=== PATIENT | female | born 1945 | race Caucasian/White ===

== ENCOUNTER 2021-05-26 18:45 | Inpatient (IN) ==
[2021-05-26] MEDS ORDERED: ceFAZolin 1 GM VIAL IV ONE (19:01)
[2021-05-26] MEDS ORDERED: ONDANSETRON 4 MG/2 ML VIAL IV PRN ×2 (19:06→22:45)
[2021-05-26] MEDS: HYDROmorphone 0.5 MG/0.5 ML SYRINGE IV PRN ×2 (19:24→20:20)
[2021-05-26 19:59] LABS: Basophils # (Auto) 0.04 K/mcL (0.00-0.20); Eosinophils # (Auto) 0.03 K/mcL (0.00-0.70); Eosinophils % (Auto) 0.8 % (0.0-7.0); Hematocrit 30.3 % (36.0-48.0); Hemoglobin 9.4 g/dL (12.0-15.0); Lymphocytes # (Auto) 0.61 K/mcL (1.50-4.80); Lymphocytes % (Auto) 15.8 % (15.0-49.0); Mean Platelet Volume 10.6 fL (7.4-10.4); Monocytes # (Auto) 0.33 K/mcL (0.10-0.90); Monocytes % (Auto) 8.5 % (1.0-12.0); Neutrophils % (Auto) 73.9 % (38.0-78.0); Platelet Count 134 K/mcL (140-440); Red Cell Distribution Width 14.1 % (11.5-14.5); WBC 3.9 K/mcL (4.5-11.0)
[2021-05-26] MEDS ORDERED: DIPH,PERTUSS(ACELL),TET VAC/PF 0.5 ML SYRINGE IM ONE (20:02)
--- NOTE | 2021-05-26 20:02 | Emergency Department Note ---
Lower Extremity Injury HPI General Chief Complaint: Extremity Injury, Lower Stated Complaint: femur FX Time Seen by Provider: 05/26/21 19:01 Source: patient Mode of arrival: ambulatory Limitations: no limitations History of Present Illness HPI Narrative: Narrative: Patient is a 75-year-old female with history of osteopenia and previous left humerus fracture who presents by EMS after fall while gardening. She suffered obvious right femur fracture. There was no bone protruding but there is a skin break at the level of the fracture anterior lateral on the right thigh that was concerning for open wound. Patient was with good distal neurovascular. She denied any other injury. Did not hit her head. Had no neck chest back or abdominal injury. No upper extremity pain. She was given fentanyl in route for pain control with good effect. She had initially noted severe pain again route improved with IV narcotics. She did not have any dizziness lightheadedness or other precipitating symptoms to cause the fall noting that merely she stumbled in the uneven ground. Related Data Home Medications Medication Instructions Recorded Confirmed cyanocobalamin (vitamin B-12) 1,000 mcg IM QMONTH 02/20/20 05/26/21 1,000 mcg/mL injection solution folic acid 1 mg tablet 3 mg PO QDAY tab 02/20/20 05/26/21 hydroxychloroquine 200 mg tablet 400 mg PO QDAY 02/20/20 05/26/21 methotrexate sodium 2.5 mg tablet 20 mg PO QWEEK tab 02/20/20 05/26/21 mycophenolate mofetil 500 mg tablet 1,500 mg PO QDAY tab 02/20/20 05/26/21 prednisone 5 mg tablet 5 mg PO QDAY tab 05/21/20 05/26/21 Previous Rx's Medication Instructions Recorded fluvoxamine 50 mg tablet 50 mg PO QHS #90 tab 08/04/20 bupropion HCl 150 mg tablet,12 hr 150 mg PO BID PRN #60 each 02/14/21 sustained-release diclofenac sodium 1 % topical gel 2 g TOPICAL QID PRN #100 g 04/14/21 ferrous gluconate 225 mg (27 mg 225 mg PO QDAY #30 tab 04/14/21 iron) tablet trazodone 50 mg tablet See Rx Instructions .ROUTE 04/14/21 .COMPLEX #180 tab gabapentin 400 mg capsule See Rx Instructions .ROUTE 04/21/21 .COMPLEX #540 cap hydrocodone 10 mg-acetaminophen 1 tab PO Q4H PRN #90 tab 05/25/21 325 mg tablet Allergies Allergy/AdvReac Type Severity Reaction Status Date / Time acetaminophen [From Percocet] Allergy Severe Unknown Verified 05/26/21 20:22 codeine Allergy Severe Unknown Verified 05/26/21 20:22 doxycycline Allergy Severe unknown Verified 05/26/21 20:22 meperidine [From Demerol] Allergy Severe unknown Verified 05/26/21 20:22 morphine Allergy Severe unknown Verified 05/26/21 20:22 oxycodone [From Percocet] Allergy Severe unknown Verified 05/26/21 20:22 Penicillins Allergy Severe unknown Verified 05/26/21 20:22 Sulfa (Sulfonamide Allergy Severe unknown Verified 05/26/21 20:22 Antibiotics) Review of Systems ROS ROS Narrative: Narrative: A 10 system review of systems was performed and found to be negative except as outlined above. 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) Anemia (Chronic) Degenerative arthritis of thumb (Acute) Lupus (Chronic) Viral syndrome (Acute) Sinusitis (Acute) Cough (Acute) UTI (urinary tract infection) (Acute) Bronchitis (Acute) Hx of bone density study (Chronic 10/23/14) Hx of cervical cancer (Chronic) Osteoarthritis, hand (Chronic) Dorsal (thoracic) vertebral fracture (Chronic) Muscle pain (Chronic) Joint pain (Chronic) Disequilibrium (Chronic) Leg pain, left (Chronic) Allergic rhinitis (Chronic) 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) Fatigue (Chronic) Tendinitis, calcific, shoulder (Chronic) Dysphagia, unspecified (Chronic) GERD (gastroesophageal reflux disease) (Chronic) Impingement syndrome of right shoulder (Chronic) Peripheral neuropathy (Chronic) Malignant neoplasm of cervix uteri (Chronic) Bullous systemic lupus erythematosus (SLE) (Chronic) Mid-cervical disc disorder, unspecified level (Chronic) Displaced fracture of greater tuberosity of left humerus, subsequent encounter for fracture with routine healing (Chronic) Inflammatory polyarthropathy (Chronic) Encounter for therapeutic drug level monitoring (Chronic) History of cataract surgery (Chronic ~10/2015) History of foot surgery (Chronic ~01/2016) Tooth abscess (Chronic) Medicare annual wellness visit, subsequent (Chronic) Plantar fasciitis (Chronic) Hip pain (Chronic) Vitamin D deficiency (Chronic) Ataxia (Chronic) Hemorrhoids (Chronic) Arthritis (Chronic) UTI (urinary tract infection) (Chronic) Vaginal dysplasia (Chronic) Migraine with aura (Chronic) Sexual dysfunction (Chronic) Palpitation (Chronic) Constipation (Chronic) Collapsed vertebra (Chronic) OA (osteoarthritis) of knee (Chronic) Age related osteoporosis (Chronic) Disorder of visual cortex associated with vascular disorder (Chronic) Fibromyalgia (Chronic) MRSA (methicillin resistant Staphylococcus aureus) (Chronic) Displaced fracture (Chronic) Polyarthropathy (Chronic) Anxiety associated with depression (Chronic) Foot drop, left foot (Chronic) DDD (degenerative disc disease), lumbosacral (Chronic) Weight loss (Chronic) PVD (peripheral vascular disease) (Chronic) 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 Displaced fracture of greater tuberosity of left humerus, subsequent encounter for fracture with routine healing Displacement of lumbar intervertebral disc with myelopathy Disseminated lupus erythematosus Dorsal (thoracic) vertebral fracture lower Dysphagia, unspecified Encounter for therapeutic drug level monitoring Fatigue Fibromyalgia Foot drop, left foot GERD (gastroesophageal reflux disease) Hemorrhoids Hip pain Hx of bone density study (10/23/14) Osteoporosis Hx of cervical cancer LGSIL Impingement syndrome of right shoulder Inflammatory polyarthropathy Joint pain Leg pain, left Leukoplakia oral mucosa Lupus Malignant neoplasm of cervix uteri Medicare annual wellness visit, subsequent Mid-cervical disc disorder, unspecified level Migraine with aura MRSA (methicillin resistant Staphylococcus aureus) Muscle pain OA (osteoarthritis) of knee Obsessive compulsive personality disorder Osteoarthritis, hand Palpitation Parkinsonian tremor Peripheral neuropathy Pernicious anemia Plantar fasciitis Polyarthropathy PVD (peripheral vascular disease) Sexual dysfunction Sinusitis Sinusitis Sjogrens syndrome Tendinitis, calcific, shoulder left Tooth abscess UTI (urinary tract infection) Vaginal dysplasia Viral syndrome Vitamin D deficiency Weight loss Surgical History History of cataract surgery (~10/2015) Dr Adame History of foot surgery (~01/2016) History of hysterectomy Left only left ovary Family History Father Cancer Sister Breast cancer Brother , Age 48 Cancer Social History Smoking Status: Former smoker Alcohol Intake Frequency: does not drink Substance Use: does not use Exam Narrative Narrative: Narrative: General: Alert, Nontoxic, GCS 15. Speaking full sentences without dyspnea HEENT: NCAT, PERRL, Oral pharynx with moist mucus membranes. No pharyngeal erythema. No conjunctival pallor Neck: Supple, No lymphadenopathy Chest: Stable Heart: Regular rate and rhythm without murmur Lungs: Clear to auscultation bilaterally Abdomen: Soft, nondistended, nontender : No bladder distention Back: Nontraumatic, No CVA tenderness to palpation. Skin: There is a 2 cm wound proximal to the right knee anterior lateral aspect. No active bleeding. There is no surrounding abrasion or bruising to indicate that this was an external type force. Extremity: Right lower extremity Joe traction splint in place with noted swelling and mild deformity just proximal to the right knee. Evidence of prior total knee arthroplasty. Neurologic: Moves all extremities in appropriate coordinated fashion with the obvious exception of the right hip and knee. Normal movement at the right foot and ankle.. General Limitations: no limitations Course Vital Signs Vital signs: Vital Signs Temperature 98.6 F 05/26/21 18:46 Pulse Rate 81 05/26/21 18:46 Respiratory Rate 16 05/26/21 18:46 Blood Pressure 112/46 05/26/21 18:46 Pulse Oximetry (%) 89 L 05/26/21 18:46 Temperature 98.6 F 05/26/21 18:46 Pulse Rate 78 05/26/21 21:06 Respiratory Rate 16 05/26/21 21:06 Blood Pressure 140/87 05/26/21 21:06 Pulse Oximetry (%) 97 05/26/21 21:06 MDM MDM Narrative Medical decision making narrative: Narrative: Patient is a elderly female with history of arthritis and osteopenia who has suffered open right distal femur fracture. This involves the metaphysis and although I spoke with Dr. Minor the orthopedist not feeling that it obviously went into the prosthesis, on better viewing on the monitor with the AP view there does appear to be extension of the fracture line all the way down to the knee prosthesis. Patient was given Ancef 2 g shortly after arrival. She cannot recall her tetanus and was given tetanus booster. She is given Dilaudid for pain control. She is given IV fluid hydration and will be admitted for further procedural care. Lab Data Result diagrams: 05/26/21 19:20 05/26/21 19:20 Labs: Lab Results 05/26/21 05/26/21 05/26/21 Range/Units 19:20 19:20 19:20 WBC 3.9 L (4.5-11.0) K/mcL RBC 3.00 L (4.00-5.20) M/mcL Hgb 9.4 L (12.0-15.0) g/dL Hct 30.3 L (36.0-48.0) % MCV 101.0 H (80.0-100.0) fL MCH 31.3 (26.0-34.0) pg MCHC 31.0 (31.0-36.0) g/dL RDW 14.1 (11.5-14.5) % Plt Count 134 L (140-440) K/mcL MPV 10.6 H (7.4-10.4) fL Neut % (Auto) 73.9 (38.0-78.0) % Lymph % (Auto) 15.8 (15.0-49.0) % [place] % (Auto) 8.5 (1.0-12.0) % Eos % (Auto) 0.8 (0.0-7.0) % Baso % (Auto) 1.0 (0.0-2.0) % Lymph # (Auto) 0.61 L (1.50-4.80) K/mcL [place] # (Auto) 0.33 (0.10-0.90) K/mcL Eos # (Auto) 0.03 (0.00-0.70) K/mcL Baso # (Auto) 0.04 (0.00-0.20) K/mcL Absolute Neutrophils 2.86 (1.80-8.00) K/mcL PT 14.5 (11.9-14.5) sec INR 1.1 (0.9-1.1) Sodium 133 (133-145) mmol/L Potassium 4.1 (3.3-5.1) mmol/L Chloride 99 (96-108) mmol/L Carbon Dioxide 30 (22-30) mmol/L Anion Gap 4.0 L (8.0-16.0) BUN 15 (8-23) mg/dL Creatinine 0.9 (0.6-1.1) mg/dL GFR Calculation 63 Glucose 90 (70-105) mg/dL Calcium 7.8 L (8.6-10.4) mg/dL Total Bilirubin 0.4 (0.1-1.0) mg/dL AST 22 (<32) U/L ALT 9 (<40) U/L Alkaline Phosphatase 46 (39-117) U/L Total Protein 5.2 L (5.9-8.4) gm/dL Albumin 3.7 (3.2-5.2) gm/dL Globulin 1.5 L (2.2-3.7) gm/dL Albumin/Globulin Ratio 2.5 H (1.0-2.3) ED POC Tests ED POC Tests: VIDA - SARS Antigen Negative Discharge Plan Patient/Caregiver Discharge Instructions Pt seen by [employer]INEER/PA only: No Clinical Impression: Open left femoral fracture Patient Disposition: Xfer As Inpt ([facility]) Condition: Serious Follow up with: Edgar Ibarra MD [Primary Care Provider] - Prescriptions: No Action fluvoxamine 50 mg tablet 50 mg tablet 50 mg PO QHS Qty: 90 RF: 3 bupropion HCl [Wellbutrin SR] 150 mg tablet sustained-release 12 hr 150 mg PO BID PRN (Reason: Depression) Qty: 60 RF: 12 trazodone 50 mg tablet See Rx Instructions .ROUTE .COMPLEX Qty: 180 RF: 0 gabapentin 400 mg capsule See Rx Instructions .ROUTE .COMPLEX Qty: 540 RF: 1 methotrexate sodium 2.5 mg tablet 20 mg PO QWEEK RF: 0 mycophenolate mofetil [CellCept] 500 mg tablet 1,500 mg PO QDAY RF: 0 folic acid 1 mg tablet 3 mg PO QDAY RF: 0 hydroxychloroquine [Plaquenil] 200 mg tablet 400 mg PO QDAY RF: 0 cyanocobalamin (vitamin B-12) 1,000 mcg/mL solution 1,000 mcg IM QMONTH RF: 0 prednisone 5 mg tablet 5 mg PO QDAY RF: 0 ferrous gluconate 225 mg (27 mg iron) tablet 225 mg PO QDAY Qty: 30 RF: 6 diclofenac sodium 1 % gel 2 g TOPICAL QID PRN (Reason: pain) Qty: 100 RF: 6 hydrocodone-acetaminophen 10-325 mg tablet 1 tab PO Q4H PRN (Reason: pain) Qty: 90 RF: 0
[2021-05-26 20:11] LABS: ALT/SGPT 9 U/L (<40); AST/SGOT 22 U/L (<32); Albumin 3.7 gm/dL (3.2-5.2); Albumin/Globulin Ratio 2.5 (1.0-2.3); Alkaline Phosphatase 46 U/L (39-117); Bilirubin,Total 0.4 mg/dL (0.1-1.0); Blood Urea Nitrogen 15 mg/dL (8-23); Calcium 7.8 mg/dL (8.6-10.4); Carbon Dioxide 30 mmol/L (22-30); Chloride 99 mmol/L (96-108); Globulin 1.5 gm/dL (2.2-3.7); Glomerular Filtration Rate 63; Glucose 90 mg/dL (70-105)
[2021-05-26 20:17] LABS: INR 1.1 (0.9-1.1); Prothrombin Time 14.5 sec (11.9-14.5)
[2021-05-26] MEDS ORDERED: 0.9 % SODIUM CHLORIDE 250 ML IV SCH (20:45)
[2021-05-26] MEDS ORDERED: ALBUMIN HUMAN 25 GM/100 ML BAG IV ONE ×2 (20:55→21:01)
[2021-05-26] MEDS ORDERED: VANCOMYCIN 1,000 MG in 0.9 % SODIUM CHLORIDE 250 ML IV ONE (21:10)
[2021-05-26] MEDS ORDERED: ceFAZolin 2 GM in DEXTROSE 5% IN WATER 50 ML IV SCH (21:15)
[2021-05-26] MEDS ORDERED: ALBUMIN HUMAN 12.5 GM/50 ML BAG IV ONE (21:30)
[2021-05-26] MEDS ORDERED: PHENYLEPHRINE 10 MG/ML VIAL ONE (21:30)
[2021-05-26] MEDS ORDERED: ONDANSETRON 4 MG/2 ML VIAL ONE (21:30)
[2021-05-26] MEDS ORDERED: SUCCINYLCHOLINE 20 MG/ML ML IV ONE (21:30)
[2021-05-26] MEDS ORDERED: ePHEDrine 50 MG/5 ML SYRINGE (ANEST) IV ONE (21:30)
[2021-05-26] MEDS ORDERED: KETAMINE 50 MG/ML ML ONE (21:30)
[2021-05-26] MEDS ORDERED: methylPREDNISolone SOD SUCC 125 MG/2 ML VIAL ONE (21:30)
[2021-05-26] MEDS ORDERED: LIDOCAINE HCL/PF 100 MG/5 ML SYRINGE IV ONE (21:30)
[2021-05-26] MEDS ORDERED: PROPOFOL 200 MG/20 ML VIAL IV ONE (21:30)
--- NOTE | 2021-05-26 21:32 | Internal Med History&Physical ---
HPI History of Present Illness Patient information: Note initiated : 05/26/21 at 9:32 pm Service Date, if different from initiated Date: [] Patient: Kathi Arevalo 75 y/o F admitted on for Femur FX. Chief Complaint: [] History of present illness: Ms. Arevalo is a 75 year old female with a history of Lupus on immunosuppressant medications, depression, pernicious anemia, osteoarthritis s/p prior right knee arthroplasty, insomnia who suffered a right distal femur fracture when she fell while gardening. Orthopedic surgery plans to take the patient to the OR. Internal medicine was asked to be involved in the patient's care for medical management. Review of systems Constitutional: no fever, fatigue, or weight loss Eyes: no vision changes or pain Cardiovascular: no chest pain, no palpitations Respiratory: no cough or dyspnea Gastrointestinal: no abdominal pain, no nausea, vomiting, or diarrhea Genitourinary: no dysuria or difficulty voiding Musculoskeletal: right leg pain Integumentary: no skin lesion or wound Neurological: no focal weakness or numbness Psychiatric: no anxiety or depression Physical exam Head: Atraumatic, normal inspection. Eyes: normal appearance, no scleral icterus. Neck: full ROM Respiratory: no respiratory distress. Cardiovascular: normal rate and rhythm, S1, S2. GI/Abdominal: soft, nontender, no guarding. Extremities: right leg in external fixator Neurological: CN II-XII intact, intact motor, intact sensation. Psychiatric: normal mood. 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) Anemia (Chronic) Degenerative arthritis of thumb (Acute) Lupus (Chronic) Viral syndrome (Acute) Sinusitis (Acute) Cough (Acute) UTI (urinary tract infection) (Acute) Bronchitis (Acute) Hx of bone density study (Chronic 10/23/14) Hx of cervical cancer (Chronic) Osteoarthritis, hand (Chronic) Dorsal (thoracic) vertebral fracture (Chronic) Muscle pain (Chronic) Joint pain (Chronic) Disequilibrium (Chronic) Leg pain, left (Chronic) Allergic rhinitis (Chronic) 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) Fatigue (Chronic) Tendinitis, calcific, shoulder (Chronic) Dysphagia, unspecified (Chronic) GERD (gastroesophageal reflux disease) (Chronic) Impingement syndrome of right shoulder (Chronic) Peripheral neuropathy (Chronic) Malignant neoplasm of cervix uteri (Chronic) Bullous systemic lupus erythematosus (SLE) (Chronic) Mid-cervical disc disorder, unspecified level (Chronic) Displaced fracture of greater tuberosity of left humerus, subsequent encounter for fracture with routine healing (Chronic) Inflammatory polyarthropathy (Chronic) Encounter for therapeutic drug level monitoring (Chronic) History of cataract surgery (Chronic ~10/2015) History of foot surgery (Chronic ~01/2016) Tooth abscess (Chronic) Medicare annual wellness visit, subsequent (Chronic) Plantar fasciitis (Chronic) Hip pain (Chronic) Vitamin D deficiency (Chronic) Ataxia (Chronic) Hemorrhoids (Chronic) Arthritis (Chronic) UTI (urinary tract infection) (Chronic) Vaginal dysplasia (Chronic) Migraine with aura (Chronic) Sexual dysfunction (Chronic) Palpitation (Chronic) Constipation (Chronic) Collapsed vertebra (Chronic) OA (osteoarthritis) of knee (Chronic) Age related osteoporosis (Chronic) Disorder of visual cortex associated with vascular disorder (Chronic) Fibromyalgia (Chronic) MRSA (methicillin resistant Staphylococcus aureus) (Chronic) Displaced fracture (Chronic) Polyarthropathy (Chronic) Anxiety associated with depression (Chronic) Foot drop, left foot (Chronic) DDD (degenerative disc disease), lumbosacral (Chronic) Weight loss (Chronic) PVD (peripheral vascular disease) (Chronic) 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 Displaced fracture of greater tuberosity of left humerus, subsequent encounter for fracture with routine healing Displacement of lumbar intervertebral disc with myelopathy Disseminated lupus erythematosus Dorsal (thoracic) vertebral fracture lower Dysphagia, unspecified Encounter for therapeutic drug level monitoring Fatigue Fibromyalgia Foot drop, left foot GERD (gastroesophageal reflux disease) Hemorrhoids Hip pain Hx of bone density study (10/23/14) Osteoporosis Hx of cervical cancer LGSIL Impingement syndrome of right shoulder Inflammatory polyarthropathy Joint pain Leg pain, left Leukoplakia oral mucosa Lupus Malignant neoplasm of cervix uteri Medicare annual wellness visit, subsequent Mid-cervical disc disorder, unspecified level Migraine with aura MRSA (methicillin resistant Staphylococcus aureus) Muscle pain OA (osteoarthritis) of knee Obsessive compulsive personality disorder Osteoarthritis, hand Palpitation Parkinsonian tremor Peripheral neuropathy Pernicious anemia Plantar fasciitis Polyarthropathy PVD (peripheral vascular disease) Sexual dysfunction Sinusitis Sinusitis Sjogrens syndrome Tendinitis, calcific, shoulder left Tooth abscess UTI (urinary tract infection) Vaginal dysplasia Viral syndrome Vitamin D deficiency Weight loss Surgical History History of cataract surgery (~10/2015) Dr Adame History of foot surgery (~01/2016) History of hysterectomy Left only left ovary Family History Father Cancer Sister Breast cancer Brother , Age 48 Cancer Social History marital status: single occupational status: retired occupation: Housekeeping @[employer] alcohol intake frequency: does not drink substance use type: does not use MEDS/ALLERGIES Home Medications and Allergies Home Medications Medication Instructions Recorded Confirmed Type cyanocobalamin (vitamin B-12) 1,000 mcg IM QMONTH 02/20/20 05/27/21 History 1,000 mcg/mL injection solution folic acid 1 mg tablet 3 mg PO QDAY tab 02/20/20 05/27/21 History hydroxychloroquine 200 mg tablet 400 mg PO QDAY 02/20/20 05/27/21 History methotrexate sodium 2.5 mg tablet 20 mg PO QWEEK tab 02/20/20 05/27/21 History mycophenolate mofetil 500 mg tablet 1,000 mg PO QDAY tab 02/20/20 05/27/21 History prednisone 5 mg tablet 5 mg PO QDAY tab 05/21/20 05/27/21 History fluvoxamine 50 mg tablet 50 mg PO QHS #90 tab 08/04/20 05/27/21 Rx bupropion HCl 150 mg tablet,12 hr 150 mg PO BID PRN #60 each 02/14/21 05/27/21 Rx sustained-release diclofenac sodium 1 % topical gel 2 g TOPICAL QID PRN #100 g 04/14/21 05/27/21 Rx ferrous gluconate 225 mg (27 mg 225 mg PO QDAY #30 tab 04/14/21 05/27/21 Rx iron) tablet gabapentin 400 mg capsule See Rx Instructions .ROUTE 04/21/21 05/27/21 Rx .COMPLEX #540 cap hydrocodone 10 mg-acetaminophen 1 tab PO Q4H PRN #90 tab 05/25/21 05/27/21 Rx 325 mg tablet mycophenolate mofetil 500 mg PO 1900 05/27/21 05/27/21 History trazodone 50 - 100 mg PO HSP PRN 05/27/21 05/27/21 History Allergies Allergy/AdvReac Type Severity Reaction Status Date / Time acetaminophen [From Percocet] Allergy Severe Unknown Verified 05/26/21 20:22 codeine Allergy Severe Difficulty Verified 05/27/21 03:16 Breathing doxycycline Allergy Severe Difficulty Verified 05/27/21 03:16 Breathing meperidine [From Demerol] Allergy Severe Difficulty Verified 05/27/21 03:16 Breathing morphine Allergy Severe Difficulty Verified 05/27/21 03:16 Swallowing oxycodone [From Percocet] Allergy Severe Difficulty Verified 05/27/21 03:16 Breathing Penicillins Allergy Severe Difficulty Verified 05/27/21 03:16 Breathing Sulfa (Sulfonamide Allergy Severe Difficulty Verified 05/27/21 03:16 Antibiotics) Breathing EXAM Constitutional Vitals: Temp Pulse Resp BP Pulse Ox 98.6 F 78 16 140/87 97 05/26/21 18:46 05/26/21 21:06 05/26/21 21:06 05/26/21 21:06 05/26/21 21:06 DATA Data Completed and Pending Labs: Labs from last 24 hours 05/26/21 05/26/21 05/26/21 20:33 20:33 19:20 WBC RBC Hgb Hct MCV MCH MCHC RDW Plt Count MPV Neut % (Auto) Lymph % (Auto) [place] % (Auto) Eos % (Auto) Baso % (Auto) Lymph # (Auto) [place] # (Auto) Eos # (Auto) Baso # (Auto) Absolute Neutrophils PT INR Sodium 133 Potassium 4.1 Chloride 99 Carbon Dioxide 30 Anion Gap 4.0 L BUN 15 Creatinine 0.9 GFR Calculation 63 Glucose 90 Calcium 7.8 L Total Bilirubin 0.4 AST 22 ALT 9 Alkaline Phosphatase 46 Troponin T Pending NT-Pro-B Natriuret Pep Pending Total Protein 5.2 L Albumin 3.7 Globulin 1.5 L Albumin/Globulin Ratio 2.5 H 05/26/21 05/26/21 19:20 19:20 WBC 3.9 L RBC 3.00 L Hgb 9.4 L Hct 30.3 L MCV 101.0 H MCH 31.3 MCHC 31.0 RDW 14.1 Plt Count 134 L MPV 10.6 H Neut % (Auto) 73.9 Lymph % (Auto) 15.8 [place] % (Auto) 8.5 Eos % (Auto) 0.8 Baso % (Auto) 1.0 Lymph # (Auto) 0.61 L [place] # (Auto) 0.33 Eos # (Auto) 0.03 Baso # (Auto) 0.04 Absolute Neutrophils 2.86 PT 14.5 INR 1.1 Sodium Potassium Chloride Carbon Dioxide Anion Gap BUN Creatinine GFR Calculation Glucose Calcium Total Bilirubin AST ALT Alkaline Phosphatase Troponin T NT-Pro-B Natriuret Pep Total Protein Albumin Globulin Albumin/Globulin Ratio A/P Narrative A/P Narrative: Assessment: 75 year old female with lupus on immunosuppressants admitted for operative repair of an acute left distal femur fracture from a mechanical fall. #Right open distal femur periprosthetic fracture s/p ORIF and eternal fixator placement #Acute blood loss anemia #Chronic anemia d/t lupus #Thrombocytopenia #Sicca syndrome #Systemic lupus erythematosus #Immunosuppression #Depression #Pernicious anemia #Osteoporosis #Insomnia #Hx of knee arthroplasty Plan -Analgesics prn. -Monitor hemoglobin. -On Vancomycin IV per pharmacy-ordered by surgery. -Continue home Hydroxychloroquine and Prednisone, hold Mycophenolate and Methotrexate for now. -Continue home Bupropion, Fluvoxamine, Gabapentin, Trazodone prn. -Check vitamin B12 -PT consult -DVT ppx: per ortho -Disposition: SNF vs home with home health, will need staged surgical intervention per ortho for definitive treatment. Time Spent With Patient Time: Total time spent is greater than 50% in coordination of care (as documented) at patient's floor/unit and/or counseling patient:
[2021-05-26] MEDS ORDERED: ePHEDrine 50 MG/ML AMPUL IV PRN (22:45)
[2021-05-26] MEDS ORDERED: ATROPINE SULFATE 0.4 MG/ML VIAL IV PRN (22:45)
[2021-05-26] MEDS ORDERED: ACETAMINOPHEN 1,000 MG/100 ML BAG IV ONE ×2 (22:45→23:40)
[2021-05-26] MEDS ORDERED: diphenhydrAMINE 50 MG/ML VIAL IV PRN (22:45)
[2021-05-26] MEDS ORDERED: LACTATED RINGERS 1,000 ML IV SCH (22:45)
[2021-05-26] MEDS ORDERED: fentaNYL 100 MCG/2 ML VIAL IV PRN (22:45)
[2021-05-26] MEDS ORDERED: IPRATROPIUM/ALBUTEROL 3 ML AMPUL.NEB NEB PRN (22:45)
[2021-05-26] MEDS ORDERED: HYDROmorphone 0.5 MG/0.5 ML SYRINGE IV PRN (22:45)
[2021-05-26] MEDS ORDERED: NALOXONE HCL 0.4 MG/ML VIAL IV PRN (22:45)
[2021-05-26] MEDS ORDERED: METOPROLOL TARTRATE 5 MG/5 ML VIAL IV PRN (22:45)
[2021-05-26] MEDS ORDERED: METHOCARBAMOL 1,000 MG/10 ML VIAL IV PRN (22:45)
[2021-05-26] MEDS ORDERED: PROMETHAZINE 25 MG/ML VIAL IM PRN (22:45)
[2021-05-26] MEDS ORDERED: MEPERIDINE 25 MG/ML VIAL IV PRN (22:45)
[2021-05-26] MEDS ORDERED: METHOCARBAMOL 1,000 MG/10 ML VIAL ONE (23:58)
[2021-05-27] MEDS ORDERED: PROCHLORPERAZINE 10 MG/2 ML VIAL IV PRN ×3 (00:20→13:22)
[2021-05-27] MEDS ORDERED: ONDANSETRON (PP) 4 MG TABLET SL ONE (00:20)
[2021-05-27] MEDS ORDERED: HYDROcodone/APAP 10/325MG TABLET PO PRN (00:20)
[2021-05-27] MEDS ORDERED: METHOCARBAMOL 750 MG TABLET PO PRN ×2 (00:20→13:22)
[2021-05-27] MEDS ORDERED: ONDANSETRON 4 MG/2 ML VIAL IV PRN ×3 (00:42→13:22)
[2021-05-27] MEDS ORDERED: buPROPion 150 MG TAB.SR.12H PO PRN ×2 (00:42→13:22)
[2021-05-27] MEDS ORDERED: ACETAMINOPHEN 325 MG TABLET PO PRN ×2 (00:42→13:22)
[2021-05-27] MEDS ORDERED: ALBUMIN HUMAN 25 GM/100 ML BAG IV ONE (00:42)
[2021-05-27] MEDS ORDERED: 0.9 % SODIUM CHLORIDE 250 ML IV SCH ×3 (00:42→13:22)
[2021-05-27] MEDS ORDERED: HYDROmorphone 0.5 MG/0.5 ML SYRINGE IV PRN ×2 (00:42→13:22)
[2021-05-27] MEDS ORDERED: HYDROcodone/APAP 5/325MG TABLET PO PRN (00:42)
[2021-05-27] MEDS: 0.9 % SODIUM CHLORIDE 1,000 ML IV SCH ×6 (00:51→23:31)
[2021-05-27] MEDS: 0.9 % SODIUM CHLORIDE 10 ML SYRINGE IV SCH ×4 (01:16→21:10)
[2021-05-27] MEDS ORDERED: HYDROmorphone 0.5 MG/0.5 ML SYRINGE ONE (01:26)
[2021-05-27] MEDS ORDERED: ONDANSETRON 4 MG ODT TABLET SL PRN ×2 (02:16→13:22)
[2021-05-27] MEDS ORDERED: HYDROmorphone 1 MG/ML SYRINGE ONE (03:11)
[2021-05-27] MEDS: HYDROmorphone 0.5 MG/0.5 ML SYRINGE IV PRN ×2 (03:11→07:13)
--- NOTE | 2021-05-27 03:23 | XRay Report ---
CLINICAL INFORMATION: fall COMPARISON: 02/25/2013 FINDINGS: No fracture or other significant osseous abnormality. Mild degenerative change both SI and hip joints shows mild progression. Soft tissues are normal. IMPRESSION: No fracture. Interpreted and Authenticated by: William Barajas 05/27/21
--- NOTE | 2021-05-27 03:24 | XRay Report ---
CLINICAL INFORMATION: fall COMPARISON: 05/21/2020 FINDINGS: Heart size, mediastinum and pulmonary vessels are normal. Lungs are clear. No effusions. IMPRESSION: No acute disease. Stable Interpreted and Authenticated by: William Barajas 05/27/21
--- NOTE | 2021-05-27 03:29 | XRay Report ---
CLINICAL INFORMATION: fall COMPARISON: None. FINDINGS: Severely comminuted, oblique fracture of the distal femoral diaphysis and metaphyseal extension appreciated. The distal fragment is displaced 3 cm posteriorly and 1.2 cm medially. The fracture extends to the femoral component knee prostheses which otherwise appears normal. Tibial component of the knee prostheses also unremarkable. Right hip normal. Soft tissue swelling at the fracture site as expected IMPRESSION: Oblique, severely comminuted and moderately displaced fracture through the distal femoral diaphysis with metaphyseal extension Interpreted and Authenticated by: William Barajas 05/27/21
--- NOTE | 2021-05-27 03:31 | XRay Report ---
CLINICAL INFORMATION: post op distal femoral diaphyseal metaphyseal fracture COMPARISON: Preoperative films 05/26/2021 1936 hours FINDINGS: Oblique comminuted fracture of the distal femoral diaphysis/metaphysis has been reduced to near-anatomic alignment. It is transfixed by lateral plate and multiple screws. There are also external fixator pins in place. Knee prostheses remains anatomically aligned. IMPRESSION: ORIF comminuted, oblique fracture of the distal femoral diaphysis and metaphysis without in near anatomic alignment Interpreted and Authenticated by: William Barajas 05/27/21
--- NOTE | 2021-05-27 03:53 | XRay Report ---
CLINICAL INFORMATION: ORIF of right femur COMPARISON: None. FINDINGS: Multiple intraoperative digital images show reduction of comminuted oblique fracture distal femoral diaphysis and metaphysis to near anatomic alignment and fixation with a long lateral plate and external fixation device IMPRESSION: ORIF distal femoral diaphyseal metaphyseal fracture now in near-anatomic alignment Interpreted and Authenticated by: William Barajas 05/27/21
[2021-05-27] MEDS ORDERED: MYCOPHENOLATE 250 MG CAPSULE PO SCH ×2 (07:00→20:00)
[2021-05-27 07:15] LABS: ALT/SGPT 11 U/L (<40); AST/SGOT 28 U/L (<32); Albumin 3.5 gm/dL (3.2-5.2); Albumin/Globulin Ratio 2.3 (1.0-2.3); Alkaline Phosphatase 43 U/L (39-117); Bilirubin,Direct < 0.2 mg/dL (0-0.3); Bilirubin,Total 0.5 mg/dL (0.1-1.0); Blood Urea Nitrogen 15 mg/dL (8-23); Calcium 7.8 mg/dL (8.6-10.4); Carbon Dioxide 25 mmol/L (22-30); Chloride 100 mmol/L (96-108); Globulin 1.5 gm/dL (2.2-3.7); Glomerular Filtration Rate 55; Glucose 144 mg/dL (70-105); Lactate Dehydrogenase 243 U/L (135-225); Phosphorous 3.9 mg/dL (2.5-4.5); Triglycerides 39 mg/dL (<150); Uric Acid 3.1 mg/dL (2.5-8.0)
--- NOTE | 2021-05-27 07:21 | Orthopedic Progress Note ---
SUBJECTIVE Subjective Patient information: Note initiated : 05/27/21 at 7:16 am Service Date, if different from initiated Date: [] Patient: Kathi Arevalo 75 y/o F admitted on 05/27/21 for Right Femur FX. Chief Complaint: [S/p ORIF of right open distal femur shahriar-prosthetic fx with external fixator placement] Ms. Arevalo is doing well and her pain is well controlled. She denies any calf tenderness. Constitutional Vitals: Vital Signs Temp Pulse Resp BP Pulse Ox 97.7 F 110 H 18 110/61 95 05/27/21 07:07 05/27/21 07:07 05/27/21 07:07 05/27/21 07:07 05/27/21 07:07 Period Temp Pulse Resp BP Sys/Wright Pulse Ox Last 24 Hr 97.0 F-98.6 F 74-110 10- 94-140/46-87 89-100 Intake and Output 05/26/21 05/27/21 05/27/21 21:59 05:59 13:59 Intake Total 2750 Output Total 750 Balance 2000 Weight 129 lb 129 lb Intake & Output: Intake & Output 05/26/21 05/27/21 05/27/21 21:59 05:59 13:59 Intake Total 2750 Output Total 750 Balance 2000 Weight 129 lb 129 lb Intake: IV 350 Vancomycin 1,000 mg In Sodium 250 Chloride 0.9% 250 ml @ 250 mls/ hr IV ONCE ONE Rx#:[id number] Oral 400 IV - Manual Only 1999 Output: Urine Catheter Amount 450 Estimated Blood Loss 300 Other: Urine Appearance Clear Uretheral (Rousseau) Clear Clear Urine Color Pale Uretheral (Rousseau) Pale Pale Urine Odor Uretheral (Rousseau) Normal Extremities Exam Extremities exam: Present calf tenderness (negative bilaterally), Joaquin's sign (negative bilaterally) and Foot pink and warm Additional comments: External fixator and dressing with lori bandage in place on RLE limiting PE. Neurological Exam Neurological exam: Present alert and oriented X3 Psychiatric Psychiatric exam: Present normal affect and normal mood OBJ DATA Labs CBC & Chem 7: 05/26/21 19:20 05/27/21 05:38 Labs: Abnormal Lab Results 05/27/21 05/26/21 05/26/21 05:38 20:33 19:20 WBC RBC Hgb Hct MCV Plt Count MPV Lymph # (Auto) Anion Gap 4.0 L Glucose 144 H Calcium 7.8 L 7.8 L Lactate Dehydrogenase 243 H NT-Pro-B Natriuret Pep 247.6 H Total Protein 5.0 L 5.2 L Globulin 1.5 L 1.5 L Albumin/Globulin Ratio 2.5 H 05/26/21 19:20 WBC 3.9 L RBC 3.00 L Hgb 9.4 L Hct 30.3 L MCV 101.0 H Plt Count 134 L MPV 10.6 H Lymph # (Auto) 0.61 L Anion Gap Glucose Calcium Lactate Dehydrogenase NT-Pro-B Natriuret Pep Total Protein Globulin Albumin/Globulin Ratio Meds: Medications Acetaminophen (Acetaminophen 325 Mg Tablet) 650 mg PO Q6HP PRN; Protocol PRN Reason: Per Pain Protocol/Fever > 101 Hydrocodone Bitart/Acetaminophen (Hydrocodone/Apap 10/325mg Tablet) 1 - 2 tab PO Q4HP PRN; Protocol PRN Reason: Per Pain Protocol Last Admin: 05/27/21 07:11 Dose: 1 tab Documented by: Bupropion HCl (Bupropion 150 Mg Tab.Sr.12h) 150 mg PO BIDP PRN PRN Reason: Depression Docusate Sodium (Docusate Sodium 100 Mg Capsule) 100 mg PO BID [facility] Folic Acid (Folic Acid 1 Mg Tablet) 3 mg PO QDAY [facility] Gabapentin (Gabapentin 400 Mg Capsule) 1,200 mg PO BID [facility] Hydromorphone HCl (Hydromorphone 0.5 Mg/0.5 Ml Syringe) 0.5 - 2.5 mg IV Q2HP PRN; Protocol PRN Reason: Per Pain Protocol Last Admin: 05/27/21 07:13 Dose: 0.5 mg Documented by: Hydroxychloroquine Sulfate (Hydroxychloroquine 200 Mg Tablet) 400 mg PO QDAY [facility]O Sodium Chloride (Sodium Chloride 0.9%) 1,000 mls @ 100 mls/hr IV .Q10H [facility] Last Admin: 05/27/21 00:51 Dose: 100 mls/hr Documented by: Vancomycin HCl 750 mg/ Sodium (Chloride) 250 mls @ 250 mls/hr IV Q12H [facility] Methocarbamol (Methocarbamol 750 Mg Tablet) 750 mg PO Q6HP PRN PRN Reason: Muscle Spasm Mycophenolate Mofetil (Mycophenolate 250 Mg Capsule) 1,000 mg PO DAILY@0700 [facility] Last Admin: 05/27/21 07:06 Dose: 1,000 mg Documented by: Mycophenolate Mofetil (Mycophenolate 250 Mg Capsule) 500 mg PO DAILY@2000 [facility] Ondansetron HCl (Ondansetron 4 Mg/2 Ml Vial) 4 mg IV Q4-6HP PRN PRN Reason: Nausea And Vomiting Ondansetron HCl (Ondansetron 4 Mg/2 Ml Vial) 4 mg IV Q6HP PRN PRN Reason: Nausea And Vomiting Ondansetron HCl (Ondansetron 4 Mg Odt Tablet) 4 mg SL Q4HP PRN PRN Reason: Nausea And Vomiting Fluvoxamine 50 Mg (Tablet) 1 dose PO QHS [facility] Prednisone (Prednisone 5 Mg Tablet) 5 mg PO QAMCC [facility] Last Admin: 05/27/21 06:59 Dose: 5 mg Documented by: Prochlorperazine (Prochlorperazine 10 Mg/2 Ml Vial) 10 mg IV Q4HP PRN PRN Reason: Nausea And Vomiting Senna (Sennosides 1 Tablet) 2 tab PO [facility] Sodium Chloride (0.9 % Sodium Chloride 10 Ml Syringe) 10 ml IV Q8 [facility] Last Admin: 05/27/21 06:48 Dose: Not Given Documented by: Vancomycin HCl (Vancomycin Per Pharmacy) 1 [place] [facility] [place] Protocol A/P Assessment and plan (1) Open femur fracture, right: Status: Acute Narrative A/P Narrative: NWB on RLE. PT today. Case management consult for likely SNF placement in 1-2 days. Time Spent With Patient Time: Total time spent is greater than 50% in coordination of care (as documented) at patient's floor/unit and/or counseling patient:
--- NOTE | 2021-05-27 07:25 | History and Physical Report ---
DATE OF ADMISSION: 05/26/2021 IDENTIFICATION: A 75-year-old female. CHIEF COMPLAINT: Set of left open periprosthetic femur fracture. HISTORY: Kathi took a stroll out to the garden today to check on her tomatoes. She had three big fat beefsteak tomatoes, but in the process, she managed to fall and had immediate pain and was unable bear weight, presented to the emergency room by EMS with pain and an open wound in the anterior aspect of her femur of her thigh. Radiographs demonstrated a periprosthetic femur fracture. PAST MEDICAL HISTORY: Significant for lupus, Sjogren's, and she does take some methotrexate and steroids. She has severe osteoporosis and previous fractures include thoracic spine fracture and proximal humerus fracture. She has a history of reflux, peripheral neuropathy, polyneuropathy. ALLERGIES: INCLUDE CODEINE, DOXYCYCLINE, MORPHINE, OXYCODONE, SULFA, PENICILLIN. MOST OF THESE ARE INTOLERANCES. MEDICATIONS: 1. Bupropion. 2. Diclofenac. 3. Fluvoxamine. 4. Neurontin. 5. Hydrocodone. 6. Hydroxychloroquine. 7. Methotrexate. 8. Prednisone. 9. Trazodone. REVIEW OF SYSTEMS: She has generally been healthy recently without any acute changes on her 10-point review of systems. PHYSICAL EXAMINATION: GENERAL: She is awake and alert. She is resting comfortably but does have vehement pain. HEAD: Normocephalic, atraumatic. EYES: PERRLA. Conjunctivae clear. ENT: Within normal limits. NECK: Supple without pain on range of motion. HEART: Regular. LUNGS: Clear. ABDOMEN: Benign. EXTREMITIES: Her right lower extremity is in an hare traction splint. She does have diffuse swelling. There is an anterior wound which is bleeding. She seems to be without real focal neurovascular deficit. RADIOGRAPHS: Her radiographics demonstrate a comminuted periprosthetic femur fracture. IMPRESSION: Open femur fracture. PLAN: We will proceed with open reduction and internal fixation, the lateral plane versus intermedullary device. This will require an irrigation and debridement. Surgical risk, complication, limitation have been discussed. The patient understands these well and wishes to proceed. GDD:praful Job ID: [id number] Doc ID: [id number] Brien Minor MD
[2021-05-27 07:39] LABS: Basophils # (Auto) 0.01 K/mcL (0.00-0.20); Basophils % (Auto) 0.1 % (0.0-2.0); Eosinophils # (Auto) 0 K/mcL (0.00-0.70); Eosinophils % (Auto) 0 % (0.0-7.0); Hematocrit 25.2 % (36.0-48.0); Hemoglobin 7.5 g/dL (12.0-15.0); Lymphocytes # (Auto) 0.12 K/mcL (1.50-4.80); Mean Cell Volume 103.7 fL (80.0-100.0); Mean Corpuscular HGB Conc 29.8 g/dL (31.0-36.0); Mean Platelet Volume 10.2 fL (7.4-10.4); Monocytes # (Auto) 0.26 K/mcL (0.10-0.90); Monocytes % (Auto) 2.2 % (1.0-12.0); Neutrophils % (Auto) 96.7 % (38.0-78.0); Platelet Count 126 K/mcL (140-440); RBC 2.43 M/mcL (4.00-5.20); Red Cell Distribution Width 13.9 % (11.5-14.5); WBC 11.9 K/mcL (4.5-11.0)
[2021-05-27] MEDS ORDERED: predniSONE 5 MG TABLET PO SCH (08:00)
[2021-05-27] MEDS ORDERED: GABAPENTIN 400 MG CAPSULE PO SCH (09:00)
[2021-05-27] MEDS ORDERED: VANCOMYCIN 750 MG in 0.9 % SODIUM CHLORIDE 250 ML IV SCH (09:00)
[2021-05-27] MEDS ORDERED: HYDROXYCHLOROQUINE 200 MG TABLET PO SCH (09:00)
[2021-05-27] MEDS ORDERED: VANCOMYCIN PER PHARMACY IV SCH ×2 (09:00→13:22)
[2021-05-27] MEDS ORDERED: DOCUSATE SODIUM 100 MG CAPSULE PO SCH (09:00)
[2021-05-27] MEDS ORDERED: FOLIC ACID 1 MG TABLET PO SCH (09:00)
[2021-05-27] MEDS ORDERED: traZODone HCL 50 MG TABLET PO PRN ×2 (11:10→13:22)
[2021-05-27] MEDS ORDERED: diphenhydrAMINE 25 MG CAPSULE PO PRN ×2 (11:12→13:22)
--- NOTE | 2021-05-27 13:17 | Internal Med Progress Note ---
SUBJECTIVE Subjective Patient information: Note initiated : 05/27/21 at 1:13 pm Service Date, if different from initiated Date: [] Patient: Kathi Arevalo 75 y/o F admitted on 05/27/21 for Femur FX. Chief Complaint: [] Interval history: History of present illness: Ms. Arevalo is a 75 year old female with a history of Lupus on immunosuppressant medications, depression, pernicious anemia, osteoarthritis s/p prior right knee arthroplasty, insomnia who suffered a right distal femur fracture when she fell while gardening. Orthopedic surgery plans to take the patient to the OR. Internal medicine was asked to be involved in the patient's care for medical management. 05/28 Constitutional Vitals: Vital Signs Temp Pulse Resp BP Pulse Ox 98.3 F 111 H 18 103/56 96 05/27/21 11:27 05/27/21 11:27 05/27/21 11:27 05/27/21 11:27 05/27/21 11:27 Period Temp Pulse Resp BP Sys/Wright Pulse Ox Last 24 Hr 97.0 F-98.6 F 74-111 10-21 94-140/46-87 89-100 Intake and Output 05/26/21 05/27/21 05/27/21 21:59 05:59 13:59 Intake Total 2750 0 Output Total 750 500 Balance 1999 1550 Weight 58.513 kg 58.513 kg Intake & Output: Intake & Output 05/26/21 05/27/21 05/27/21 21:59 05:59 13:59 Intake Total 2750 0 Output Total 750 500 Balance 1999 1550 Weight 58.513 kg 58.513 kg Intake: IV 350 1250 Sodium Chloride 0.9% 1,000 ml @ 1000 100 mls/hr IV .Q10H [facility] Rx#: [id number] Vancomycin 750 mg In Sodium 250 250 Chloride 0.9% 250 ml @ 250 mls/ hr IV Q12H [facility] Rx#:[id number] Oral 400 800 IV - Manual Only 1999 Output: Urine Catheter Amount 450 500 Estimated Blood Loss 300 Other: Meal Lunch Percent of Meal Consumed 50% Urine Appearance Clear Clear Uretheral (Rousseau) Clear Clear Urine Color Pale Bright Yellow Uretheral (Rousseau) Pale Pale Urine Odor Uretheral (Rousseau) Normal Exam: General: Alert, Awake, No acute Distress Eyes/N/T: EOMI, Head/Neck: neck supple, CV: RRR, No murmurs, Pulm: Clear b/l, no wheezing/rhonchi/rales Abd: soft, nontender, +BS x4 Ext: no clubbing/cyanosis/edema. right leg in external fixator Neuro: Alert, no focal deficits, moves all extremities, Skin: warm/dry OBJ DATA Labs CBC & Chem 7: 05/27/21 11:25 05/27/21 05:38 Labs: Abnormal Lab Results 05/27/21 05/27/21 05/27/21 11:25 08:17 05:38 WBC RBC Hgb 5.7 L* Hct MCV MCHC Plt Count MPV Neut % (Auto) Lymph % (Auto) Lymph # (Auto) Absolute Neutrophils Anion Gap Glucose 144 H Calcium 7.8 L Lactate Dehydrogenase 243 H NT-Pro-B Natriuret Pep Total Protein 5.0 L Globulin 1.5 L Albumin/Globulin Ratio Vitamin B12 1258.0 H 05/27/21 05/26/21 05/26/21 05:38 20:33 19:20 WBC 11.9 H RBC 2.43 L Hgb 7.5 L Hct 25.2 L MCV 103.7 H MCHC 29.8 L Plt Count 126 L MPV Neut % (Auto) 96.7 H Lymph % (Auto) 1.0 L Lymph # (Auto) 0.12 L Absolute Neutrophils 11.51 H Anion Gap 4.0 L Glucose Calcium 7.8 L Lactate Dehydrogenase NT-Pro-B Natriuret Pep 247.6 H Total Protein 5.2 L Globulin 1.5 L Albumin/Globulin Ratio 2.5 H Vitamin B12 05/26/21 19:20 WBC 3.9 L RBC 3.00 L Hgb 9.4 L Hct 30.3 L MCV 101.0 H MCHC Plt Count 134 L MPV 10.6 H Neut % (Auto) Lymph % (Auto) Lymph # (Auto) 0.61 L Absolute Neutrophils Anion Gap Glucose Calcium Lactate Dehydrogenase NT-Pro-B Natriuret Pep Total Protein Globulin Albumin/Globulin Ratio Vitamin B12 Meds: Medications Acetaminophen (Acetaminophen 325 Mg Tablet) 650 mg PO Q6HP PRN; Protocol PRN Reason: Per Pain Protocol/Fever > 101 Hydrocodone Bitart/Acetaminophen (Hydrocodone/Apap 10/325mg Tablet) 1 - 2 tab PO Q4HP PRN; Protocol PRN Reason: Per Pain Protocol Last Admin: 05/27/21 07:11 Dose: 1 tab Documented by: Bupropion HCl (Bupropion 150 Mg Tab.Sr.12h) 150 mg PO BIDP PRN PRN Reason: Depression Diphenhydramine HCl (Diphenhydramine 25 Mg Capsule) 25 mg PO Q6HP PRN PRN Reason: Allergic Symptoms, itching Last Admin: 05/27/21 11:16 Dose: 25 mg Documented by: Docusate Sodium (Docusate Sodium 100 Mg Capsule) 100 mg PO BID [facility] Last Admin: 05/27/21 09:32 Dose: 100 mg Documented by: Folic Acid (Folic Acid 1 Mg Tablet) 3 mg PO QDAY [facility] Last Admin: 05/27/21 09:31 Dose: 3 mg Documented by: Gabapentin (Gabapentin 400 Mg Capsule) 1,200 mg PO BID [facility] Last Admin: 05/27/21 09:32 Dose: 1,200 mg Documented by: Hydromorphone HCl (Hydromorphone 0.5 Mg/0.5 Ml Syringe) 0.5 - 2.5 mg IV Q2HP PRN; Protocol PRN Reason: Per Pain Protocol Last Admin: 05/27/21 07:13 Dose: 0.5 mg Documented by: Hydroxychloroquine Sulfate (Hydroxychloroquine 200 Mg Tablet) 400 mg PO QDAY [facility] Last Admin: 05/27/21 09:31 Dose: 400 mg Documented by: Sodium Chloride (Sodium Chloride 0.9%) 1,000 mls @ 100 mls/hr IV .Q10H [facility] Last Admin: 05/27/21 12:28 Dose: 100 mls/hr Documented by: Vancomycin HCl 750 mg/ Sodium (Chloride) 250 mls @ 250 mls/hr IV Q12H [facility] Last Infusion: 05/27/21 10:38 Dose: Infused Documented by: Sodium Chloride (Sodium Chloride 0.9%) 250 mls @ 20 mls/hr IV .[id number] [facility] Stop: 05/28/21 00:44 Methocarbamol (Methocarbamol 750 Mg Tablet) 750 mg PO Q6HP PRN PRN Reason: Muscle Spasm Ondansetron HCl (Ondansetron 4 Mg/2 Ml Vial) 4 mg IV Q4-6HP PRN PRN Reason: Nausea And Vomiting Ondansetron HCl (Ondansetron 4 Mg Odt Tablet) 4 mg SL Q4HP PRN PRN Reason: Nausea And Vomiting Fluvoxamine 50 Mg (Tablet) 1 dose PO QHS [facility] Prednisone (Prednisone 5 Mg Tablet) 5 mg PO QAC [facility] Last Admin: 05/27/21 06:59 Dose: 5 mg Documented by: Prochlorperazine (Prochlorperazine 10 Mg/2 Ml Vial) 10 mg IV Q4HP PRN PRN Reason: Nausea And Vomiting Senna (Sennosides 1 Tablet) 2 tab PO HS [facility] Sodium Chloride (0.9 % Sodium Chloride 10 Ml Syringe) 10 ml IV Q8 [facility] Last Admin: 05/27/21 06:48 Dose: Not Given Documented by: Trazodone HCl (Trazodone Hcl 50 Mg Tablet) 50 - 100 mg PO HSP PRN PRN Reason: Sleep Vancomycin HCl (Vancomycin Per Pharmacy) 1 order IV UD [facility]; Protocol A/P Narrative A/P Narrative: A: #Right open distal femur periprosthetic fracture: s/p ORIF and eternal fixator placement (05/27) #Acute blood loss anemia post-op on Chronic anemia d/t lupus: #Thrombocytopenia, chronic: #Sicca syndrome #Systemic lupus erythematosus #Immunosuppression #Depression #Pernicious anemia #Osteoporosis #Insomnia #Hx of knee arthroplasty Plan: -RLE per Ortho -On Vancomycin IV per pharmacy-ordered by surgery for open Fx -Monitor hemoglobin -Continue home Hydroxychloroquine and Prednisone, hold Mycophenolate and Methotrexate for now. -Continue home Bupropion, Fluvoxamine, Gabapentin, Trazodone prn. -PT consult -CM for SNF vs home with home health -DVT ppx: per ortho Time Spent With Patient Time: Total time spent is greater than 50% in coordination of care (as documented) at patient's floor/unit and/or counseling patient: QUALITY VTE Deep Vein Thrombosis/Pulmonary Embolism Present on Admission: No
[2021-05-27] MEDS ORDERED: CALCIUM CARBONATE 500 MG TAB.CHEW CHEWED PRN (14:56)
[2021-05-27] MEDS ORDERED: PHENobarb/HYOSCY/ATROPINE/SCOP 1 DOSE BOTTLE PO ONE (14:57)
[2021-05-27] MEDS: HYDROcodone/APAP 10/325MG TABLET PO PRN ×2 (15:14→21:11)
[2021-05-27] MEDS ORDERED: SENNOSIDES 1 TABLET PO SCH ×2 (21:00)
[2021-05-27] MEDS ORDERED: Fluvoxamine 50 mg tablet PO SCH ×2 (21:00)
[2021-05-27] MEDS: VANCOMYCIN 750 MG in 0.9 % SODIUM CHLORIDE 250 ML IV SCH (21:08)
[2021-05-27] MEDS: GABAPENTIN 400 MG CAPSULE PO SCH (21:08)
[2021-05-27] MEDS: DOCUSATE SODIUM 100 MG CAPSULE PO SCH (21:08)
[2021-05-28] MEDS: 0.9 % SODIUM CHLORIDE 10 ML SYRINGE IV SCH ×3 (05:15→21:30)
[2021-05-28 06:54] LABS: Basophils # (Auto) 0.01 K/mcL (0.00-0.20); Basophils % (Auto) 0.1 % (0.0-2.0); Eosinophils # (Auto) 0.01 K/mcL (0.00-0.70); Eosinophils % (Auto) 0.1 % (0.0-7.0); Hematocrit 25.3 % (36.0-48.0); Lymphocytes # (Auto) 0.85 K/mcL (1.50-4.80); Mean Cell Volume 96.6 fL (80.0-100.0); Mean Corpuscular HGB Conc 31.6 g/dL (31.0-36.0); Mean Platelet Volume 10.6 fL (7.4-10.4); Monocytes # (Auto) 0.99 K/mcL (0.10-0.90); Monocytes % (Auto) 9.3 % (1.0-12.0); Neutrophils % (Auto) 82.5 % (38.0-78.0); Platelet Count 93 K/mcL (140-440); RBC 2.62 M/mcL (4.00-5.20); WBC 10.7 K/mcL (4.5-11.0)
[2021-05-28 07:07] LABS: ALT/SGPT 13 U/L (<40); AST/SGOT 41 U/L (<32); Albumin 3.2 gm/dL (3.2-5.2); Albumin/Globulin Ratio 2.9 (1.0-2.3); Alkaline Phosphatase 40 U/L (39-117); Bilirubin,Direct < 0.2 mg/dL (0-0.3); Bilirubin,Total 0.7 mg/dL (0.1-1.0); Blood Urea Nitrogen 10 mg/dL (8-23); Calcium 7.8 mg/dL (8.6-10.4); Carbon Dioxide 30 mmol/L (22-30); Chloride 107 mmol/L (96-108); Globulin 1.1 gm/dL (2.2-3.7); Glomerular Filtration Rate 85; Glucose 99 mg/dL (70-105); Lactate Dehydrogenase 234 U/L (135-225); Phosphorous 2.6 mg/dL (2.5-4.5); Triglycerides 41 mg/dL (<150); Uric Acid 2.4 mg/dL (2.5-8.0)
--- NOTE | 2021-05-28 07:50 | Internal Med Progress Note ---
SUBJECTIVE Subjective Patient information: Note initiated : 05/28/21 at 7:46 am Service Date, if different from initiated Date: [] Patient: Kathi Arevalo 75 y/o F admitted on 05/27/21 for Femur FX. Chief Complaint: [] Interval history: History of present illness: Ms. Arevalo is a 75 year old female with a history of Lupus on immunosuppressant medications, depression, pernicious anemia, osteoarthritis s/p prior right knee arthroplasty, insomnia who suffered a right distal femur fracture when she fell while gardening. Orthopedic surgery plans to take the patient to the OR. Internal medicine was asked to be involved in the patient's care for medical management. 05/28 Hemoglobin stable after transfusion yesterday. Started oozing a little bit to dressing this morning. No new events or other complaints. Review of Systems: denies headache/fever/chills/nausea/vomiting/chest or abdominal pain/cough/dyspnea/diarrhea. Otherwise see above. Constitutional Vitals: Vital Signs Temp Pulse Resp BP Pulse Ox 98.1 F 79 10 L 107/52 99 05/28/21 04:02 05/28/21 07:01 05/28/21 07:01 05/28/21 07:01 05/28/21 07:01 Period Temp Pulse Resp BP Sys/Wright Pulse Ox Last 24 Hr 98.1 F-99.2 F 75-111 7-23 94-123/51-96 92-100 Intake and Output 05/27/21 05/28/21 05/28/21 21:59 05:59 13:59 Intake Total 820 900 400 Output Total 1225 3050 Balance -405 -2150 400 Weight 70.806 kg Intake & Output: Intake & Output 05/27/21 05/28/21 05/28/21 21:59 05:59 13:59 Intake Total 820 900 400 Output Total 1225 3050 Balance -405 -2150 400 Weight 70.806 kg Intake: IV 250 Vancomycin 750 mg In Sodium 250 Chloride 0.9% 250 ml @ 250 mls/ hr IV Q12H [facility] Rx#:[id number] Oral 820 650 400 Output: Urine Catheter Amount 1225 3050 Other: Meal Dinner Percent of Meal Consumed 75% Feeding Ability Independent Urine Appearance Clear Clear Uretheral (Rousseau) Clear Urine Color Bright Yellow Pale Uretheral (Rousseau) Pale Urine Odor Normal Normal Uretheral (Rousseau) Normal # Bowel Movements 0 Exam: General: Alert, Awake, No acute Distress Eyes/N/T: EOMI, Head/Neck: neck supple, CV: RRR, No murmurs, Pulm: Clear b/l, no wheezing/rhonchi/rales Abd: soft, nontender, +BS x4 Ext: no clubbing/cyanosis/edema. right leg in external fixator Neuro: Alert, no focal deficits, moves all extremities, Skin: warm/dry OBJ DATA Labs CBC & Chem 7: 05/28/21 05:17 05/28/21 05:17 Labs: Abnormal Lab Results 05/28/21 05/28/21 05/27/21 05:17 05:17 18:10 WBC RBC 2.62 L Hgb 8.0 L 7.9 L Hct 25.3 L MCV MCHC RDW 16.0 H Plt Count 93 L MPV 10.6 H Neut % (Auto) 82.5 H Lymph % (Auto) 8.0 L Lymph # (Auto) 0.85 L [place] # (Auto) 0.99 H Absolute Neutrophils 8.80 H Anion Gap 2.0 L Glucose Uric Acid 2.4 L Calcium 7.8 L AST 41 H Lactate Dehydrogenase 234 H NT-Pro-B Natriuret Pep Total Protein 4.3 L Globulin 1.1 L Albumin/Globulin Ratio 2.9 H Vitamin B12 05/27/21 05/27/21 05/27/21 11:25 08:17 05:38 WBC RBC Hgb 5.7 L* Hct MCV MCHC RDW Plt Count MPV Neut % (Auto) Lymph % (Auto) Lymph # (Auto) [place] # (Auto) Absolute Neutrophils Anion Gap Glucose 144 H Uric Acid Calcium 7.8 L AST Lactate Dehydrogenase 243 H NT-Pro-B Natriuret Pep Total Protein 5.0 L Globulin 1.5 L Albumin/Globulin Ratio Vitamin B12 1258.0 H 05/27/21 05/26/21 05/26/21 05:38 20:33 19:20 WBC 11.9 H RBC 2.43 L Hgb 7.5 L Hct 25.2 L MCV 103.7 H MCHC 29.8 L RDW Plt Count 126 L MPV Neut % (Auto) 96.7 H Lymph % (Auto) 1.0 L Lymph # (Auto) 0.12 L [place] # (Auto) Absolute Neutrophils 11.51 H Anion Gap 4.0 L Glucose Uric Acid Calcium 7.8 L AST Lactate Dehydrogenase NT-Pro-B Natriuret Pep 247.6 H Total Protein 5.2 L Globulin 1.5 L Albumin/Globulin Ratio 2.5 H Vitamin B12 05/26/21 19:20 WBC 3.9 L RBC 3.00 L Hgb 9.4 L Hct 30.3 L MCV 101.0 H MCHC RDW Plt Count 134 L MPV 10.6 H Neut % (Auto) Lymph % (Auto) Lymph # (Auto) 0.61 L [place] # (Auto) Absolute Neutrophils Anion Gap Glucose Uric Acid Calcium AST Lactate Dehydrogenase NT-Pro-B Natriuret Pep Total Protein Globulin Albumin/Globulin Ratio Vitamin B12 Meds: Medications Acetaminophen (Acetaminophen 325 Mg Tablet) 650 mg PO Q6HP PRN; Protocol PRN Reason: Per Pain Protocol/Fever > 101 Hydrocodone Bitart/Acetaminophen (Hydrocodone/Apap 10/325mg Tablet) 1 - 2 tab PO Q4HP PRN; Protocol PRN Reason: Per Pain Protocol Last Admin: 05/27/21 21:11 Dose: 1 tab Documented by: Bupropion HCl (Bupropion 150 Mg Tab.Sr.12h) 150 mg PO BIDP PRN PRN Reason: Depression Calcium Carbonate/Glycine (Calcium Carbonate 500 Mg Tab.Chew) 1,000 mg CHEWED Q4HP PRN PRN Reason: Dyspepsia Last Admin: 05/27/21 18:50 Dose: 1,000 mg Documented by: Diphenhydramine HCl (Diphenhydramine 25 Mg Capsule) 25 mg PO Q6HP PRN PRN Reason: Allergic Symptoms, itching Last Admin: 05/27/21 18:12 Dose: 25 mg Documented by: Docusate Sodium (Docusate Sodium 100 Mg Capsule) 100 mg PO BID [facility] Last Admin: 05/27/21 21:08 Dose: 100 mg Documented by: Folic Acid (Folic Acid 1 Mg Tablet) 3 mg PO QDAY [facility] Gabapentin (Gabapentin 400 Mg Capsule) 400 mg PO BID [facility] Last Admin: 05/27/21 21:08 Dose: 400 mg Documented by: Hydromorphone HCl (Hydromorphone 0.5 Mg/0.5 Ml Syringe) 0.5 - 2.5 mg IV Q2HP PRN; Protocol PRN Reason: Per Pain Protocol Last Admin: 05/27/21 14:07 Dose: 0.5 mg Documented by: Hydroxychloroquine Sulfate (Hydroxychloroquine 200 Mg Tablet) 400 mg PO QDAY [facility] Sodium Chloride (Sodium Chloride 0.9%) 1,000 mls @ 100 mls/hr IV .Q10H [facility] Last Admin: 05/27/21 23:31 Dose: Not Given Documented by: Vancomycin HCl 750 mg/ Sodium (Chloride) 250 mls @ 250 mls/hr IV Q12H [facility] Last Infusion: 05/27/21 22:24 Dose: Infused Documented by: Methocarbamol (Methocarbamol 750 Mg Tablet) 750 mg PO Q6HP PRN PRN Reason: Muscle Spasm Ondansetron HCl (Ondansetron 4 Mg Odt Tablet) 4 mg SL Q4HP PRN PRN Reason: Nausea And Vomiting Ondansetron HCl (Ondansetron 4 Mg/2 Ml Vial) 4 mg IV Q4-6HP PRN PRN Reason: Nausea And Vomiting Last Admin: 05/27/21 14:28 Dose: 4 mg Documented by: Fluvoxamine 50 Mg (Tablet) 1 dose PO [facility] Last Admin: 05/27/21 21:17 Dose: Not Given Documented by: Prednisone ([facility] 5 Mg Tablet) [facility] Prochlorperazine (Prochlorperazine 10 Mg/2 Ml Vial) 10 mg IV Q4HP PRN PRN Reason: Nausea And Vomiting Senna (Sennosides 1 Tablet) 2 tab PO [facility] Last Admin: 05/27/21 21:08 Dose: 2 tab Documented by: Sodium Chloride (0.9 % Sodium Chloride 10 Ml Syringe) 10 ml IV Q8 [facility] Last Admin: 05/28/21 05:15 Dose: 10 ml Documented by: Trazodone HCl (Trazodone Hcl 50 Mg Tablet) 50 - 100 mg PO HSP PRN PRN Reason: Sleep Last Admin: 05/27/21 21:51 Dose: 50 mg Documented by: Vancomycin HCl (Vancomycin Per Pharmacy) 1 order IV [facility] [place]; Protocol A/P Narrative A/P Narrative: A: #Right open distal femur periprosthetic fracture: s/p ORIF and eternal fixator placement (05/27) #Acute blood loss anemia post-op on Chronic anemia d/t lupus: -stable s/p 2prbc (05/27) #Thrombocytopenia, chronic: #Sicca syndrome #Systemic lupus erythematosus #Immunosuppression #Depression #Pernicious anemia #Osteoporosis #Insomnia #Hx of knee arthroplasty #likely VIOLETA Plan: -RLE per Ortho -On Vancomycin IV per pharmacy-ordered by surgery for open Fx -Monitor hemoglobin -Continue home Hydroxychloroquine and Prednisone, hold Mycophenolate and Methotrexate for now. -Continue home Bupropion, Fluvoxamine, Gabapentin, Trazodone prn. -PT consult -CM for SNF vs home with home health -f/u with pulm for sleep study -DVT ppx: SCD to left, right foot pump/post-op per ortho (chemical held d/t bleeding at surgical site) Time Spent With Patient Time: Total time spent is greater than 50% in coordination of care (as document ed) at patient's floor/unit and/or counseling patient: QUALITY VTE Deep Vein Thrombosis/Pulmonary Embolism Present on Admission: No
[2021-05-28] MEDS: HYDROcodone/APAP 10/325MG TABLET PO PRN ×5 (08:00→23:54)
[2021-05-28] MEDS ORDERED: predniSONE 5 MG TABLET PO SCH (08:00)
--- NOTE | 2021-05-28 08:44 | Orthopedic Progress Note ---
SUBJECTIVE Subjective Patient information: Note initiated : 05/28/21 at 8:43 am Service Date, if different from initiated Date: [] Patient: Kathi Arevalo 75 y/o F admitted on 05/27/21 for Femur FX. Chief Complaint: []dyspepsia, otherwise no c/o Constitutional Vitals: Vital Signs Temp Pulse Resp BP Pulse Ox 97.2 F 91 H 21 117/83 100 05/28/21 08:01 05/28/21 08:01 05/28/21 08:01 05/28/21 08:01 05/28/21 08:01 Period Temp Pulse Resp BP Sys/Wright Pulse Ox Last 24 Hr 97.2 F-99.2 F 75-111 7-23 94-123/51-96 92-100 Intake and Output 05/27/21 05/28/21 05/28/21 21:59 05:59 13:59 Intake Total 8996 181 5908 Output Total 1225 3050 Balance 578 -2150 1400 Weight 156 lb 1.6 oz Intake & Output: Intake & Output 05/27/21 05/28/21 05/28/21 21:59 05:59 13:59 Intake Total 1912 394 9472 Output Total 1225 3050 Balance 578 -2150 1400 Weight 156 lb 1.6 oz Intake: IV 101 301 7740 Sodium Chloride 0.9% 1,000 ml @ 885 1000 100 mls/hr IV .Q10H [facility] Rx#: [id number] Sodium Chloride 0.9% 250 ml @ 98 20 mls/hr IV .[id number] [facility] Rx#: [id number] Vancomycin 750 mg In Sodium 250 Chloride 0.9% 250 ml @ 250 mls/ hr IV Q12H [facility] Rx#:[id number] Oral 820 650 400 Output: Urine Catheter Amount 1225 3050 Other: Meal Dinner Percent of Meal Consumed 75% Feeding Ability Independent Urine Appearance Clear Clear Uretheral (Rousseau) Clear Urine Color Bright Yellow Pale Uretheral (Rousseau) Pale Urine Odor Normal Normal Uretheral (Rousseau) Normal # Bowel Movements 0 OBJ DATA Labs CBC & Chem 7: 05/28/21 05:17 05/28/21 05:17 Labs: Abnormal Lab Results 05/28/21 05/28/21 05/27/21 05:17 05:17 18:10 WBC RBC 2.62 L Hgb 8.0 L 7.9 L Hct 25.3 L MCV MCHC RDW 16.0 H Plt Count 93 L MPV 10.6 H Neut % (Auto) 82.5 H Lymph % (Auto) 8.0 L Lymph # (Auto) 0.85 L Anderson # (Auto) 0.99 H Absolute Neutrophils 8.80 H Anion Gap 2.0 L Glucose Uric Acid 2.4 L Calcium 7.8 L AST 41 H Lactate Dehydrogenase 234 H NT-Pro-B Natriuret Pep Total Protein 4.3 L Globulin 1.1 L Albumin/Globulin Ratio 2.9 H Vitamin B12 05/27/21 05/27/21 05/27/21 11:25 08:17 05:38 WBC RBC Hgb 5.7 L* Hct MCV MCHC RDW Plt Count MPV Neut % (Auto) Lymph % (Auto) Lymph # (Auto) Anderson # (Auto) Absolute Neutrophils Anion Gap Glucose 144 H Uric Acid Calcium 7.8 L AST Lactate Dehydrogenase 243 H NT-Pro-B Natriuret Pep Total Protein 5.0 L Globulin 1.5 L Albumin/Globulin Ratio Vitamin B12 1258.0 H 05/27/21 05/26/21 05/26/21 05:38 20:33 19:20 WBC 11.9 H RBC 2.43 L Hgb 7.5 L Hct 25.2 L MCV 103.7 H MCHC 29.8 L RDW Plt Count 126 L MPV Neut % (Auto) 96.7 H Lymph % (Auto) 1.0 L Lymph # (Auto) 0.12 L Anderson # (Auto) Absolute Neutrophils 11.51 H Anion Gap 4.0 L Glucose Uric Acid Calcium 7.8 L AST Lactate Dehydrogenase NT-Pro-B Natriuret Pep 247.6 H Total Protein 5.2 L Globulin 1.5 L Albumin/Globulin Ratio 2.5 H Vitamin B12 05/26/21 19:20 WBC 3.9 L RBC 3.00 L Hgb 9.4 L Hct 30.3 L MCV 101.0 H MCHC RDW Plt Count 134 L MPV 10.6 H Neut % (Auto) Lymph % (Auto) Lymph # (Auto) 0.61 L Anderson # (Auto) Absolute Neutrophils Anion Gap Glucose Uric Acid Calcium AST Lactate Dehydrogenase NT-Pro-B Natriuret Pep Total Protein Globulin Albumin/Globulin Ratio Vitamin B12 Meds: Medications Acetaminophen (Acetaminophen 325 Mg Tablet) 650 mg PO Q6HP PRN; Protocol PRN Reason: Per Pain Protocol/Fever > 101 Hydrocodone Bitart/Acetaminophen (Hydrocodone/Apap 10/325mg Tablet) 1 - 2 tab PO Q4HP PRN; Protocol PRN Reason: Per Pain Protocol Last Admin: 05/28/21 08:00 Dose: 1 tab Documented by: Bupropion HCl (Bupropion 150 Mg Tab.Sr.12h) 150 mg PO BIDP PRN PRN Reason: Depression Calcium Carbonate/Glycine (Calcium Carbonate 500 Mg Tab.Chew) 1,000 mg CHEWED Q4HP PRN PRN Reason: Dyspepsia Last Admin: 05/27/21 18:50 Dose: 1,000 mg Documented by: Diphenhydramine HCl (Diphenhydramine 25 Mg Capsule) 25 mg PO Q6HP PRN PRN Reason: Allergic Symptoms, itching Last Admin: 05/27/21 18:12 Dose: 25 mg Documented by: Docusate Sodium (Docusate Sodium 100 Mg Capsule) 100 mg PO BID [facility] Last Admin: 05/27/21 21:08 Dose: 100 mg Documented by: Famotidine (Famotidine 20 Mg Tablet) 20 mg PO BID [facility] Folic Acid (Folic Acid 1 Mg Tablet) 3 mg PO QDAY [facility] Gabapentin (Gabapentin 400 Mg Capsule) 400 mg PO BID [facility] Last Admin: 05/27/21 21:08 Dose: 400 mg Documented by: Hydromorphone HCl (Hydromorphone 0.5 Mg/0.5 Ml Syringe) 0.5 - 2.5 mg IV Q2HP PRN; Protocol PRN Reason: Per Pain Protocol Last Admin: 05/27/21 14:07 Dose: 0.5 mg Documented by: Hydroxychloroquine Sulfate (Hydroxychloroquine 200 Mg Tablet) 400 mg PO QDAY [facility] Vancomycin HCl 750 mg/ Sodium (Chloride) 250 mls @ 250 mls/hr IV Q12H [facility] Last Infusion: 05/27/21 22:24 Dose: Infused Documented by: Methocarbamol (Methocarbamol 750 Mg Tablet) 750 mg PO Q6HP PRN PRN Reason: Muscle Spasm Ondansetron HCl (Ondansetron 4 Mg Odt Tablet) 4 mg SL Q4HP PRN PRN Reason: Nausea And Vomiting Ondansetron HCl (Ondansetron 4 Mg/2 Ml Vial) 4 mg IV Q4-6HP PRN PRN Reason: Nausea And Vomiting Last Admin: 05/27/21 14:28 Dose: 4 mg Documented by: Fluvoxamine 50 Mg (Tablet) 1 dose PO [facility] Last Admin: 05/27/21 21:17 Dose: Not Given Documented by: Prednisone (Prednisone 5 Mg Tablet) 5 mg PO [facility] Last Admin: 05/28/21 08:01 Dose: 5 mg Documented by: Prochlorperazine (Prochlorperazine 10 Mg/2 Ml Vial) 10 mg IV Q4HP PRN PRN Reason: Nausea And Vomiting Senna (Sennosides 1 Tablet) 2 tab PO [facility] Last Admin: 05/27/21 21:08 Dose: 2 tab Documented by: Sodium Chloride (0.9 % Sodium Chloride 10 Ml Syringe) 10 ml IV Q8 [facility] Last Admin: 05/28/21 05:15 Dose: 10 ml Documented by: Trazodone HCl (Trazodone Hcl 50 Mg Tablet) 50 - 100 mg PO HSP PRN PRN Reason: Sleep Last Admin: 05/27/21 21:51 Dose: 50 mg Documented by: Vancomycin HCl (Vancomycin Per Pharmacy) [address] [facility]; Protocol A/P Narrative A/P Narrative: s/p ORIF complicated periprosthetic fx Hgb stable pepcid mobilize Time Spent With Patient Time: Total time spent is greater than 50% in coordination of care (as documented) at patient's floor/unit and/or counseling patient:
[2021-05-28] MEDS ORDERED: FOLIC ACID 1 MG TABLET PO SCH (09:00)
[2021-05-28] MEDS ORDERED: HYDROXYCHLOROQUINE 200 MG TABLET PO SCH (09:00)
[2021-05-28] MEDS ORDERED: FAMOTIDINE 20 MG TABLET PO SCH (09:00)
[2021-05-28] MEDS: GABAPENTIN 400 MG CAPSULE PO SCH ×2 (09:21→20:24)
[2021-05-28] MEDS: DOCUSATE SODIUM 100 MG CAPSULE PO SCH ×2 (09:21→20:25)
[2021-05-28] MEDS: VANCOMYCIN 750 MG in 0.9 % SODIUM CHLORIDE 250 ML IV SCH ×2 (10:10→20:23)
[2021-05-28] MEDS ORDERED: ACETAMINOPHEN 325 MG TABLET PO PRN (18:32)
[2021-05-28] MEDS ORDERED: diphenhydrAMINE 25 MG CAPSULE PO PRN (18:32)
[2021-05-28] MEDS ORDERED: ONDANSETRON 4 MG ODT TABLET SL PRN (18:32)
[2021-05-28] MEDS ORDERED: VANCOMYCIN PER PHARMACY IV SCH (18:32)
[2021-05-28] MEDS ORDERED: ONDANSETRON 4 MG/2 ML VIAL IV PRN (18:32)
[2021-05-28] MEDS ORDERED: HYDROmorphone 0.5 MG/0.5 ML SYRINGE IV PRN (18:32)
[2021-05-28] MEDS ORDERED: CALCIUM CARBONATE 500 MG TAB.CHEW CHEWED PRN (18:32)
[2021-05-28] MEDS ORDERED: buPROPion 150 MG TAB.SR.12H PO PRN (18:32)
[2021-05-28] MEDS ORDERED: PHENobarb/HYOSCY/ATROPINE/SCOP 1 DOSE BOTTLE PO ONE (18:32)
[2021-05-28] MEDS ORDERED: PROCHLORPERAZINE 10 MG/2 ML VIAL IV PRN (18:32)
[2021-05-28] MEDS: FAMOTIDINE 20 MG TABLET PO SCH (20:26)
[2021-05-28] MEDS: SENNOSIDES 1 TABLET PO SCH (20:26)
[2021-05-28] MEDS: METHOCARBAMOL 750 MG TABLET PO PRN (21:12)
--- NOTE | 2021-05-28 21:53 | EKG ---
[facility] Test Date: 2021-05-26 Pat Name: Kathi Arevalo Department: ED Room: Gender: Female Director Utilization Management: : 1945 Requested By: Jimmie Platt Order Number: [id number] Reading MD: Lc Adkins M.D. Measurements Intervals [place] Rate: 79 P: 65 [place]: 156 QRS: 78 QRSD: 88 T: 54 QT: 400 QTc: 459 Interpretive Statements SINUS RHYTHM NO PRIOR TRACING FOR COMPARISON NORMAL TRACING Electronically Signed On 05-28-2021 21:53:13 PDT by Lc Adkins M.D. /store/M0/[id number]
--- NOTE | 2021-05-28 22:01 | EKG ---
[facility] Test Date: 2021-05-27 Pat Name: Kathi Arevalo Department: ICU Room: 120B Gender: Female Shirt Folder: : 1945 Requested By: Rom Finn Order Number: [id number] Reading MD: Lc Adkins M.D. Measurements Intervals [place] Rate: 92 P: 49 MS: 168 QRS: 56 QRSD: 88 T: 4 QT: 376 QTc: 466 Interpretive Statements SINUS RHYTHM Since previous ECG of 2018, NORMAL TRACING Electronically Signed On 05-28-2021 22:00:42 PDT by Lc Adkins M.D. /store/M0/[id number]
[2021-05-28] MEDS: traZODone HCL 50 MG TABLET PO PRN (23:55)
[2021-05-28] MEDS: FLUVOXAMINE 50 MG TABLET PO SCH (23:56)
[2021-05-29 07:34] LABS: Basophils # (Auto) 0.02 K/mcL (0.00-0.20); Basophils % (Auto) 0.2 % (0.0-2.0); Eosinophils # (Auto) 0.13 K/mcL (0.00-0.70); Eosinophils % (Auto) 1.5 % (0.0-7.0); Hematocrit 27.8 % (36.0-48.0); Hemoglobin 8.1 g/dL (12.0-15.0); Lymphocytes # (Auto) 1.55 K/mcL (1.50-4.80); Lymphocytes % (Auto) 18.5 % (15.0-49.0); Mean Cell Volume 100.4 fL (80.0-100.0); Mean Corpuscular HGB Conc 29.1 g/dL (31.0-36.0); Mean Platelet Volume 10.9 fL (7.4-10.4); Monocytes % (Auto) 13.1 % (1.0-12.0); Neutrophils % (Auto) 66.7 % (38.0-78.0); Platelet Count 117 K/mcL (140-440); RBC 2.77 M/mcL (4.00-5.20); Red Cell Distribution Width 15.9 % (11.5-14.5); WBC 8.4 K/mcL (4.5-11.0)
--- NOTE | 2021-05-29 08:31 | Internal Med Progress Note ---
SUBJECTIVE Subjective Patient information: Note initiated : 05/29/21 at 8:30 am Service Date, if different from initiated Date: [] Patient: Kathi Arevalo 75 y/o F admitted on 05/27/21 for Femur FX. Chief Complaint: [] Interval history: History of present illness: Ms. Arevalo is a 75 year old female with a history of Lupus on immunosuppressant medications, depression, pernicious anemia, osteoarthritis s/p prior right knee arthroplasty, insomnia who suffered a right distal femur fracture when she fell while gardening. Orthopedic surgery plans to take the patient to the OR. Internal medicine was asked to be involved in the patient's care for medical management. 05/28 Hemoglobin stable after transfusion yesterday. Started oozing a little bit to dressing this morning. No new events or other complaints. 05/29 No overnight event or new complaints. Patient doing well. H&H stable. Review of Systems: denies headache/fever/chills/nausea/vomiting/chest or abdominal pain/cough/dyspnea/diarrhea. Otherwise see above. Constitutional Vitals: Vital Signs Temp Pulse Resp BP Pulse Ox 97.2 F 102 H 16 107/57 100 05/29/21 07:57 05/29/21 07:57 05/29/21 07:57 05/29/21 07:57 05/29/21 07:57 Period Temp Pulse Resp BP Sys/Wright Pulse Ox Last 24 Hr 97.2 F-99.3 F 77-107 9-26 95-118/48-96 92-100 Intake and Output 05/28/21 05/29/21 05/29/21 21:59 05:59 13:59 Intake Total 1050 200 Output Total 950 1500 Balance 100 -1300 Weight 70.443 kg Intake & Output: Intake & Output 05/28/21 05/29/21 05/29/21 21:59 05:59 13:59 Intake Total 1050 200 Output Total 950 1500 Balance 100 -1300 Weight 70.443 kg Intake: IV 250 Vancomycin 750 mg In Sodium 250 Chloride 0.9% 250 ml @ 250 mls/ hr IV Q12H [facility] Rx#:[id number] Oral 800 200 Output: Urine Catheter Amount 950 1500 Other: Meal Dinner Percent of Meal Consumed 100% Feeding Ability Independent Urine Appearance Clear Clear Urine Color Bright Yellow Pale Urine Odor Normal Normal Exam: General: Alert, Awake, No acute Distress Eyes/N/T: EOMI, Head/Neck: neck supple, CV: RRR, No murmurs, Pulm: Clear b/l, no wheezing/rhonchi/rales Abd: soft, nontender, +BS x4 Ext: no clubbing/cyanosis/edema. right leg in external fixator Neuro: Alert, no focal deficits, moves all extremities, Skin: warm/dry OBJ DATA Labs CBC & Chem 7: 05/29/21 05:09 05/28/21 05:17 Labs: Abnormal Lab Results 05/29/21 05/28/21 05/28/21 05:09 05:17 05:17 WBC RBC 2.77 L 2.62 L Hgb 8.1 L 8.0 L Hct 27.8 L 25.3 L MCV 100.4 H MCHC 29.1 L RDW 15.9 H 16.0 H Plt Count 117 L 93 L MPV 10.9 H 10.6 H Neut % (Auto) 82.5 H Lymph % (Auto) 8.0 L Mcminn % (Auto) 13.1 H Lymph # (Auto) 0.85 L Mcminn # (Auto) 1.10 H 0.99 H Absolute Neutrophils 8.80 H Anion Gap 2.0 L Glucose Uric Acid 2.4 L Calcium 7.8 L AST 41 H Lactate Dehydrogenase 234 H NT-Pro-B Natriuret Pep Total Protein 4.3 L Globulin 1.1 L Albumin/Globulin Ratio 2.9 H Vitamin B12 05/27/21 05/27/21 05/27/21 18:10 11:25 08:17 WBC RBC Hgb 7.9 L 5.7 L* Hct MCV MCHC RDW Plt Count MPV Neut % (Auto) Lymph % (Auto) Mcminn % (Auto) Lymph # (Auto) Mcminn # (Auto) Absolute Neutrophils Anion Gap Glucose Uric Acid Calcium AST Lactate Dehydrogenase NT-Pro-B Natriuret Pep Total Protein Globulin Albumin/Globulin Ratio Vitamin B12 1258.0 H 05/27/21 05/27/21 05/26/21 05:38 05:38 20:33 WBC 11.9 H RBC 2.43 L Hgb 7.5 L Hct 25.2 L MCV 103.7 H MCHC 29.8 L RDW Plt Count 126 L MPV Neut % (Auto) 96.7 H Lymph % (Auto) 1.0 L Mcminn % (Auto) Lymph # (Auto) 0.12 L Mcminn # (Auto) Absolute Neutrophils 11.51 H Anion Gap Glucose 144 H Uric Acid Calcium 7.8 L AST Lactate Dehydrogenase 243 H NT-Pro-B Natriuret Pep 247.6 H Total Protein 5.0 L Globulin 1.5 L Albumin/Globulin Ratio Vitamin B12 05/26/21 05/26/21 19:20 19:20 WBC 3.9 L RBC 3.00 L Hgb 9.4 L Hct 30.3 L MCV 101.0 H MCHC RDW Plt Count 134 L MPV 10.6 H Neut % (Auto) Lymph % (Auto) Mcminn % (Auto) Lymph # (Auto) 0.61 L Mcminn # (Auto) Absolute Neutrophils Anion Gap 4.0 L Glucose Uric Acid Calcium 7.8 L AST Lactate Dehydrogenase NT-Pro-B Natriuret Pep Total Protein 5.2 L Globulin 1.5 L Albumin/Globulin Ratio 2.5 H Vitamin B12 Meds: Medications Acetaminophen (Acetaminophen 325 Mg Tablet) 650 mg PO Q6HP PRN; Protocol PRN Reason: Per Pain Protocol/Fever > 101 Hydrocodone Bitart/Acetaminophen (Hydrocodone/Apap 10/325mg Tablet) 1 - 2 tab PO Q4HP PRN; Protocol PRN Reason: Per Pain Protocol Last Admin: 05/28/21 23:54 Dose: 2 tab Documented by: Bupropion HCl (Bupropion 150 Mg Tab.Sr.12h) 150 mg PO BIDP PRN PRN Reason: Depression Calcium Carbonate/Glycine (Calcium Carbonate 500 Mg Tab.Chew) 1,000 mg CHEWED Q4HP PRN PRN Reason: Dyspepsia Diphenhydramine HCl (Diphenhydramine 25 Mg Capsule) 25 mg PO Q6HP PRN PRN Reason: Allergic Symptoms, itching Last Admin: 05/28/21 22:43 Dose: 25 mg Documented by: Docusate Sodium (Docusate Sodium 100 Mg Capsule) 100 mg PO BID [facility] Last Admin: 05/28/21 20:25 Dose: 100 mg Documented by: Famotidine (Famotidine 20 Mg Tablet) 20 mg PO BID [facility] Last Admin: 05/28/21 20:26 Dose: 20 mg Documented by: Folic Acid (Folic Acid 1 Mg Tablet) 3 mg PO QDAY [facility] Gabapentin (Gabapentin 400 Mg Capsule) 400 mg PO BID [facility] Last Admin: 05/28/21 20:24 Dose: 400 mg Documented by: Hydromorphone HCl (Hydromorphone 0.5 Mg/0.5 Ml Syringe) 0.5 - 2.5 mg IV Q2HP PRN; Protocol PRN Reason: Per Pain Protocol Hydroxychloroquine Sulfate (Hydroxychloroquine 200 Mg Tablet) 400 mg PO QDAY [facility] Vancomycin HCl 750 mg/ Sodium (Chloride) 250 mls @ 250 mls/hr IV Q12H [facility] Last Infusion: 05/28/21 21:30 Dose: Infused Documented by: Methocarbamol (Methocarbamol 750 Mg Tablet) 750 mg PO Q6HP PRN PRN Reason: Muscle Spasm Last Admin: 05/28/21 21:12 Dose: 750 mg Documented by: Ondansetron HCl (Ondansetron 4 Mg Odt Tablet) 4 mg SL Q4HP PRN PRN Reason: Nausea And Vomiting Ondansetron HCl (Ondansetron 4 Mg/2 Ml Vial) 4 mg IV Q4-6HP PRN PRN Reason: Nausea And Vomiting Fluvoxamine 50 Mg (Tablet) 1 dose PO [facility] Last Admin: 05/28/21 23:56 Dose: 1 dose Documented by: Prednisone (Prednisone 5 Mg Tablet) 5 mg PO [facility] Prochlorperazine (Prochlorperazine 10 Mg/2 Ml Vial) 10 mg IV Q4HP PRN PRN Reason: Nausea And Vomiting Senna (Sennosides 1 Tablet) 2 tab PO [facility] Last Admin: 05/28/21 20:26 Dose: 2 tab Documented by: Sodium Chloride (0.9 % Sodium Chloride 10 Ml Syringe) 10 ml IV Q8 [facility] Last Admin: 05/28/21 21:30 Dose: 10 ml Documented by: Trazodone HCl (Trazodone Hcl 50 Mg Tablet) 50 - 100 mg PO HSP PRN PRN Reason: Sleep Last Admin: 05/28/21 23:55 Dose: 50 mg Documented by: Vancomycin HCl (Vancomycin Per Pharmacy) 1 order IV [facility]; Protocol A/P Narrative A/P Narrative: A: #Right open distal femur periprosthetic fracture: s/p ORIF and eternal fixator placement (05/27) #Acute blood loss anemia post-op on Chronic anemia d/t lupus: -stable s/p 2prbc (05/27) #Thrombocytopenia, chronic: #Sicca syndrome #Systemic lupus erythematosus #Immunosuppression #Depression #Pernicious anemia #Osteoporosis #Insomnia #Hx of knee arthroplasty #likely VIOLETA Plan: -RLE per Ortho -On Vancomycin IV per pharmacy-ordered by surgery for open Fx -Monitor hemoglobin -Continue home Hydroxychloroquine and Prednisone, hold Mycophenolate and Methotrexate for now. -Continue home Bupropion, Fluvoxamine, Gabapentin, Trazodone prn. -PT consult -CM for SNF vs home with home health -f/u with pulm for sleep study -DVT ppx: SCD to left, right foot pump/post-op per ortho (chemical held d/t bleeding at surgical site) Time Spent With Patient Time: Total time spent is greater than 50% in coordination of care (as documented) at patient's floor/unit and/or counseling patient: QUALITY VTE Deep Vein Thrombosis/Pulmonary Embolism Present on Admission: No
[2021-05-29] MEDS: HYDROcodone/APAP 10/325MG TABLET PO PRN ×3 (08:34→21:34)
[2021-05-29] MEDS: FOLIC ACID 1 MG TABLET PO SCH (08:35)
[2021-05-29] MEDS: GABAPENTIN 400 MG CAPSULE PO SCH ×2 (08:35→21:35)
[2021-05-29] MEDS: HYDROXYCHLOROQUINE 200 MG TABLET PO SCH (08:35)
[2021-05-29] MEDS: predniSONE 5 MG TABLET PO SCH (08:36)
[2021-05-29] MEDS: 0.9 % SODIUM CHLORIDE 10 ML SYRINGE IV SCH ×3 (08:36→21:37)
[2021-05-29] MEDS: DOCUSATE SODIUM 100 MG CAPSULE PO SCH ×2 (08:36→21:37)
[2021-05-29] MEDS: FAMOTIDINE 20 MG TABLET PO SCH ×2 (08:36→21:37)
[2021-05-29] MEDS: VANCOMYCIN 750 MG in 0.9 % SODIUM CHLORIDE 250 ML IV SCH (10:06)
--- NOTE | 2021-05-29 12:55 | Discharge Summary ---
Discharge Provider Provider Patient information: Note initiated : 05/29/21 at 12:54 pm Service Date, if different from initiated Date: [] Patient: Kathi Arevalo 75 y/o F admitted on 05/27/21 for Femur FX. Chief Complaint: [] Date of admission: 05/27/21 00:40 Discharge date: 05/30/21 Primary care physician: Edgar Ibarra MD Consults: 05/26/21 Consult to Physician [CONS] Stat Comment: Consulting Provider: Brien Minor Reason For Exam: Physician to Consult Consult to Physician [CONS] Stat Comment: Consulting Provider: Ronald Anthony Reason For Exam: Physician to Consult Discharge Meds Discharge Medications Home Medications cyanocobalamin (vitamin B-12) 1,000 mcg/mL injection solution 1,000 mcg IM QMONTH 02/20/20 [History Confirmed 05/27/21 Last Taken 05/25/21] folic acid 1 mg tablet 3 mg PO QDAY tab 02/20/20 [History Confirmed 05/27/21 Last Taken 05/26/21 08:00] hydroxychloroquine 200 mg tablet 400 mg PO QDAY 02/20/20 [History Confirmed 05/27/21 Last Taken 05/26/21 08:00] methotrexate sodium 2.5 mg tablet 20 mg PO QWEEK tab 02/20/20 [History Confirmed 05/27/21 Last Taken 05/17/21] mycophenolate mofetil 500 mg tablet 1,000 mg PO QDAY tab 02/20/20 [History Confirmed 05/27/21 Last Taken 05/26/21 09:00] prednisone 5 mg tablet 5 mg PO QDAY tab 05/21/20 [History Confirmed 05/27/21 Last Taken 05/26/21 08:00] fluvoxamine 50 mg tablet 50 mg PO QHS #90 tab 08/04/20 [Rx Confirmed 05/27/21 L ast Taken 05/25/21 21:00] bupropion HCl 150 mg tablet,12 hr sustained-release 150 mg PO BID PRN #60 each 02/14/21 [Rx Confirmed 05/27/21 Last Taken 05/26/21 08:00] diclofenac sodium 1 % topical gel 2 g TOPICAL QID PRN #100 g 04/14/21 [Rx Confirmed 05/27/21 Last Taken 05/25/21 12:00] ferrous gluconate 225 mg (27 mg iron) tablet 225 mg PO QDAY #30 tab 04/14/21 [Rx Confirmed 05/27/21 Last Taken 05/26/21 08:00] gabapentin 400 mg capsule See Rx Instructions .ROUTE .COMPLEX #540 cap 04/21/21 [Rx Confirmed 05/27/21 Last Taken 05/26/21 08:00] hydrocodone 10 mg-acetaminophen 325 mg tablet 1 tab PO Q4H PRN #90 tab 05/25/21 [Rx Confirmed 05/27/21 Last Taken 05/26/21 12:30] mycophenolate mofetil 500 mg PO 1900 05/27/21 [History Confirmed 05/27/21 Last Taken 05/25/21 19:00] trazodone 50 - 100 mg PO HSP PRN 05/27/21 [History Confirmed 05/27/21 Last Taken 05/25/21 21:00] aspirin 81 mg PO BID #60 tab 05/29/21 [Rx Last Taken Unknown] hydrocodone-acetaminophen 1 tab PO Q4H PRN #60 tab 05/29/21 [Rx Last Taken Unknown] COURSE Hospital Course Hospital course: Interval history: History of present illness: Ms. Arevalo is a 75 year old female with a history of Lupus on immunosuppressant medications, depression, pernicious anemia, osteoarthritis s/p prior right knee arthroplasty, insomnia who suffered a right distal femur fracture when she fell while gardening. Orthopedic surgery plans to take the patient to the OR. Internal medicine was asked to be involved in the patient's care for medical management. 05/28 Hemoglobin stable after transfusion yesterday. Started oozing a little bit to dressing this morning. No new events or other complaints. 05/29 No overnight event or new complaints. Patient doing well. H&H stable. 05/30 No overnight event or new complaints. [facility] H[facility] outpatient A: #Right open distal femur periprosthetic fracture: s/p ORIF and eternal fixator placement (05/27) #Acute blood loss anemia post-op on Chronic anemia d/t lupus: -stable s/p 2prbc (05/27) #Thrombocytopenia, chronic: #Sicca syndrome #Systemic lupus erythematosus #Immunosuppression #Depression #Pernicious anemia #Osteoporosis #Insomnia #Hx of knee arthroplasty #likely VIOLETA Discharge diagnosis: Right distal femur periprosthetic fracture open Secondary discharge diagnosis: Thrombocytopenia acute blood loss anemia on chronic anemia immunosuppression of the lupus Davi depression pernicious anemia osteoporosis insomnia suspected VIOLETA Time Spent with Patient Time attestation: Total time spent providing and/or coordinating discharge services: Time spent: Greater than 30 minutes EXAM Constitutional Vitals: Temp Pulse Resp BP Pulse Ox 98.9 F 97 H 18 101/49 92 05/29/21 11:16 05/29/21 11:16 05/29/21 11:16 05/29/21 11:16 05/29/21 11:16 Discharge Data Data Completed and Pending Labs on day of discharge: Labs from last 24 hours 05/29/21 05:09 WBC 8.4 RBC 2.77 L Hgb 8.1 L Hct 27.8 L MCV 100.4 H MCH 29.2 MCHC 29.1 L RDW 15.9 H Plt Count 117 L MPV 10.9 H Neut % (Auto) 66.7 Lymph % (Auto) 18.5 Addison % (Auto) 13.1 H Eos % (Auto) 1.5 Baso % (Auto) 0.2 Lymph # (Auto) 1.55 Addison # (Auto) 1.10 H Eos # (Auto) 0.13 Baso # (Auto) 0.02 Absolute Neutrophils 5.59 Discharge Plan Patient/Caregiver Discharge Instructions Activity: non-weight bearing Diet: Regular Diet Activity Restrictions/Additional Instructions: Referral to see pulmonology for possible sleep study 1 to 2 weeks. Pin site care BID with 50/50 saline/chlorhexadine. CBC follow-up ordered in [address] Minor and PCP, for anemia from postop bleeding. Prescriptions: New hydrocodone-acetaminophen 10-325 mg tablet 1 tab PO Q4H PRN (Reason: pain) Qty: 60 RF: 0 aspirin 81 mg tablet,chewable 81 mg PO BID Qty: 60 RF: 0 Continued fluvoxamine 50 mg tablet 50 mg tablet 50 mg PO QHS Qty: 90 RF: 3 bupropion HCl [Wellbutrin SR] 150 mg tablet sustained-release 12 hr 150 mg PO BID PRN (Reason: Depression) Qty: 60 RF: 12 gabapentin 400 mg capsule See Rx Instructions .ROUTE .COMPLEX Qty: 540 RF: 1 methotrexate sodium 2.5 mg tablet 20 mg PO QWEEK RF: 0 mycophenolate mofetil [CellCept] 500 mg tablet 1,000 mg PO QDAY RF: 0 folic acid 1 mg tablet 3 mg PO QDAY RF: 0 hydroxychloroquine [Plaquenil] 200 mg tablet 400 mg PO QDAY RF: 0 cyanocobalamin (vitamin B-12) 1,000 mcg/mL solution 1,000 mcg IM QMONTH RF: 0 prednisone 5 mg tablet 5 mg PO QDAY RF: 0 ferrous gluconate 225 mg (27 mg iron) tablet 225 mg PO QDAY Qty: 30 RF: 6 diclofenac sodium 1 % gel 2 g TOPICAL QID PRN (Reason: pain) Qty: 100 RF: 6 hydrocodone-acetaminophen 10-325 mg tablet 1 tab PO Q4H PRN (Reason: pain) Qty: 90 RF: 0 mycophenolate mofetil 500 mg Tablet 500 mg PO 1900 RF: 0 trazodone 50 mg tablet 50 - 100 mg PO HSP PRN (Reason: Sleep) RF: 0 Other Ambulatory Orders: Complete Blood Count (Routine) Timeframe: 3 Days Facility: [facility] - Location: Laboratory Ordered By: Rom Finn Follow Up Plan Follow up with: Edgar Ibarra MD [Primary Care Provider] - Brien Minor MD [Physician] - (f/u with Dr. Minor or Bharat Mckinley in 2 weeks. ) Patient Disposition: Xfer SNF Prognosis: Fair Rehab Potential: Fair I certify that the patient requires SNF services: Yes Overall status at discharge: patient is progressing back to baseline Discharge Orders: Discharge Order (Routine); Ordered 05/30/21 Ordered By: Rom Finn QUALITY VTE Deep Vein Thrombosis/Pulmonary Embolism Present on Admission: No
[2021-05-29] MEDS: METHOCARBAMOL 750 MG TABLET PO PRN ×2 (13:04→21:36)
--- NOTE | 2021-05-29 15:30 | Orthopedic Progress Note ---
SUBJECTIVE Subjective Patient information: Note initiated : 05/29/21 at 3:24 pm Service Date, if different from initiated Date: [] Patient: Kathi Arevalo 75 y/o F admitted on 05/27/21 for Femur FX. Chief Complaint: [Pt is POD #2 s/p application of external fixator and plating of right femur fx. Overall admits to pain in the right leg today but states her pain is managed. Denies other complaints including SOB, CP, N/V, fevers/chills. ] Constitutional Vitals: Vital Signs Temp Pulse Resp BP Pulse Ox 98.9 F 97 H 18 101/49 92 05/29/21 11:16 05/29/21 11:16 05/29/21 11:16 05/29/21 11:16 05/29/21 11:16 Period Temp Pulse Resp BP Sys/Wright Pulse Ox Last 24 Hr 97.2 F-99.3 F 87-107 12-21 95-114/48-96 92-100 Intake and Output 05/29/21 05/29/21 05/29/21 05:59 13:59 21:59 Intake Total 200 250 Output Total 1500 Balance -1300 250 Intake & Output: Intake & Output 05/29/21 05/29/21 05/29/21 05:59 13:59 21:59 Intake Total 200 250 Output Total 1500 Balance -1300 250 Intake: IV 250 Vancomycin 750 mg In Sodium 250 Chloride 0.9% 250 ml @ 250 mls/ hr IV Q12H [facility] Rx#:[id number] Oral 200 Output: Urine Catheter Amount 1500 Other: Meal Breakfast Percent of Meal Consumed 75% Feeding Ability Independent Urine Appearance Clear Clear Urine Color Pale Bright Yellow Urine Odor Normal Normal Uretheral (Rousseau) Normal Extremities Exam Extremities exam: Present normal capillary refill, Foot pink and warm and neurovascular intact; Absent calf tenderness Additional comments: ex-fix in place about right lower extremity. Pin sites underneath Edward wrap are free from surrounding erythema or infection at this time. Full ROM bilateral feet/ankles which are warm/well perfused. OBJ DATA Labs CBC & Chem 7: 05/29/21 05:09 05/28/21 05:17 Labs: Abnormal Lab Results 05/29/21 05/28/21 05/28/21 05:09 05:17 05:17 WBC RBC 2.77 L 2.62 L Hgb 8.1 L 8.0 L Hct 27.8 L 25.3 L MCV 100.4 H MCHC 29.1 L RDW 15.9 H 16.0 H Plt Count 117 L 93 L MPV 10.9 H 10.6 H Neut % (Auto) 82.5 H Lymph % (Auto) 8.0 L [place] % (Auto) 13.1 H Lymph # (Auto) 0.85 L [place] # (Auto) 1.10 H 0.99 H Absolute Neutrophils 8.80 H Anion Gap 2.0 L Glucose Uric Acid 2.4 L Calcium 7.8 L AST 41 H Lactate Dehydrogenase 234 H NT-Pro-B Natriuret Pep Total Protein 4.3 L Globulin 1.1 L Albumin/Globulin Ratio 2.9 H Vitamin B12 05/27/21 05/27/21 05/27/21 18:10 11:25 08:17 WBC RBC Hgb 7.9 L 5.7 L* Hct MCV MCHC RDW Plt Count MPV Neut % (Auto) Lymph % (Auto) [place] % (Auto) Lymph # (Auto) [place] # (Auto) Absolute Neutrophils Anion Gap Glucose Uric Acid Calcium AST Lactate Dehydrogenase NT-Pro-B Natriuret Pep Total Protein Globulin Albumin/Globulin Ratio Vitamin B12 1258.0 H 05/27/21 05/27/21 05/26/21 05:38 05:38 20:33 WBC 11.9 H RBC 2.43 L Hgb 7.5 L Hct 25.2 L MCV 103.7 H MCHC 29.8 L RDW Plt Count 126 L MPV Neut % (Auto) 96.7 H Lymph % (Auto) 1.0 L [place] % (Auto) Lymph # (Auto) 0.12 L [place] # (Auto) Absolute Neutrophils 11.51 H Anion Gap Glucose 144 H Uric Acid Calcium 7.8 L AST Lactate Dehydrogenase 243 H NT-Pro-B Natriuret Pep 247.6 H Total Protein 5.0 L Globulin 1.5 L Albumin/Globulin Ratio Vitamin B12 05/26/21 05/26/21 19:20 19:20 WBC 3.9 L RBC 3.00 L Hgb 9.4 L Hct 30.3 L MCV 101.0 H MCHC RDW Plt Count 134 L MPV 10.6 H Neut % (Auto) Lymph % (Auto) [place] % (Auto) Lymph # (Auto) 0.61 L [place] # (Auto) Absolute Neutrophils Anion Gap 4.0 L Glucose Uric Acid Calcium 7.8 L AST Lactate Dehydrogenase NT-Pro-B Natriuret Pep Total Protein 5.2 L Globulin 1.5 L Albumin/Globulin Ratio 2.5 H Vitamin B12 Meds: Medications Acetaminophen (Acetaminophen 325 Mg Tablet) 650 mg PO Q6HP PRN; Protocol PRN Reason: Per Pain Protocol/Fever > 101 Hydrocodone Bitart/Acetaminophen (Hydrocodone/Apap 10/325mg Tablet) 1 - 2 tab PO Q4HP PRN; Protocol PRN Reason: Per Pain Protocol Last Admin: 05/29/21 13:05 Dose: 2 tab Documented by: Bupropion HCl (Bupropion 150 Mg Tab.Sr.12h) 150 mg PO BIDP PRN PRN Reason: Depression Calcium Carbonate/Glycine (Calcium Carbonate 500 Mg Tab.Chew) 1,000 mg CHEWED Q4HP PRN PRN Reason: Dyspepsia Diphenhydramine HCl (Diphenhydramine 25 Mg Capsule) 25 mg PO Q6HP PRN PRN Reason: Allergic Symptoms, itching Last Admin: 05/28/21 22:43 Dose: 25 mg Documented by: Docusate Sodium (Docusate Sodium 100 Mg Capsule) 100 mg PO BID [facility] Last Admin: 05/29/21 08:36 Dose: 100 mg Documented by: Famotidine (Famotidine 20 Mg Tablet) 20 mg PO BID [facility] Last Admin: 05/29/21 08:36 Dose: 20 mg Documented by: Folic Acid (Folic Acid 1 Mg Tablet) 3 mg PO QDAY [facility] Last Admin: 05/29/21 08:35 Dose: 3 mg Documented by: Gabapentin (Gabapentin 400 Mg Capsule) 400 mg PO BID [facility] Last Admin: 05/29/21 08:35 Dose: 400 mg Documented by: Hydromorphone HCl (Hydromorphone 0.5 Mg/0.5 Ml Syringe) 0.5 - 2.5 mg IV Q2HP PRN; Protocol PRN Reason: Per Pain Protocol Hydroxychloroquine Sulfate (Hydroxychloroquine 200 Mg Tablet) 400 mg PO QDAY [facility] Last Admin: 05/29/21 08:35 Dose: 400 mg Documented by: Vancomycin HCl 750 mg/ Sodium (Chloride) 250 mls @ 250 mls/hr IV Q12H [facility] Last Infusion: 05/29/21 11:29 Dose: Infused Documented by: Lidocaine (Lidocaine Patch) 1 patch TOPICAL DAILY@1000 MARCELO Methocarbamol (Methocarbamol 750 Mg Tablet) 750 mg PO Q6HP PRN PRN Reason: Muscle Spasm Last Admin: 05/29/21 13:04 Dose: 750 mg Documented by: Ondansetron HCl (Ondansetron 4 Mg Odt Tablet) 4 mg SL Q4HP PRN PRN Reason: Nausea And Vomiting Ondansetron HCl (Ondansetron 4 Mg/2 Ml Vial) 4 mg IV Q4-6HP PRN PRN Reason: Nausea And Vomiting Fluvoxamine 50 Mg (Tablet) 1 dose PO [facility] Last Admin: 05/28/21 23:56 Dose: 1 dose Documented by: Prednisone (Prednisone 5 Mg Tablet) 5 mg PO [facility] Last Admin: 05/29/21 08:36 Dose: 5 mg Documented by: Prochlorperazine (Prochlorperazine 10 Mg/2 Ml Vial) 10 mg IV Q4HP PRN PRN Reason: Nausea And Vomiting Senna (Sennosides 1 Tablet) 2 tab PO [facility] Last Admin: 05/28/21 20:26 Dose: 2 tab Documented by: Sodium Chloride (0.9 % Sodium Chloride 10 Ml Syringe) 10 ml IV Q8 [facility] Last Admin: 05/29/21 13:04 Dose: 10 ml Documented by: Trazodone HCl (Trazodone Hcl 50 Mg Tablet) 50 - 100 mg PO HSP PRN PRN Reason: Sleep Last Admin: 05/28/21 23:55 Dose: 50 mg Documented by: Vancomycin HCl (Vancomycin Per Pharmacy) 1 order IV [facility] [place]; Protocol A/P Assessment and plan (1) Open femur fracture, right: Status: Acute Comment: Pt is POD#2 s/p ex-fix placement and plating for right open femur fracture. --begin pin site care BID (50/50 chlorhexadine/saline) --followup with orthopedics--Bharat Mckinley or Dr. Minor in 2 weeks. --PT/OT: MAKSIM LEIVA---work on ankle pumps, leg lifts. --continue pain medications. --prophy: aspirin, SCDs, IS, compression stocking. --dispo: SNF Time Spent With Patient Time: Total time spent is greater than 50% in coordination of care (as documented) at patient's floor/unit and/or counseling patient:
[2021-05-29] MEDS: FLUVOXAMINE 50 MG TABLET PO SCH (21:34)
[2021-05-29] MEDS: traZODone HCL 50 MG TABLET PO PRN (21:35)
[2021-05-29] MEDS: ASPIRIN 81 MG TAB.CHEW CHEWED SCH (21:36)
[2021-05-29] MEDS: SENNOSIDES 1 TABLET PO SCH (21:37)
[2021-05-30] MEDS: 0.9 % SODIUM CHLORIDE 10 ML SYRINGE IV SCH (06:26)
[2021-05-30 07:01] LABS: Basophils # (Auto) 0.03 K/mcL (0.00-0.20); Basophils % (Auto) 0.4 % (0.0-2.0); Eosinophils # (Auto) 0.11 K/mcL (0.00-0.70); Eosinophils % (Auto) 1.6 % (0.0-7.0); Hematocrit 26.1 % (36.0-48.0); Hemoglobin 7.6 g/dL (12.0-15.0); Lymphocytes # (Auto) 1.39 K/mcL (1.50-4.80); Lymphocytes % (Auto) 20.2 % (15.0-49.0); Mean Cell Volume 102.8 fL (80.0-100.0); Mean Corpuscular HGB Conc 29.1 g/dL (31.0-36.0); Mean Platelet Volume 10.4 fL (7.4-10.4); Monocytes # (Auto) 0.67 K/mcL (0.10-0.90); Monocytes % (Auto) 9.8 % (1.0-12.0); Platelet Count 114 K/mcL (140-440); RBC 2.54 M/mcL (4.00-5.20); Red Cell Distribution Width 15.5 % (11.5-14.5); WBC 6.9 K/mcL (4.5-11.0)
[2021-05-30] MEDS: HYDROcodone/APAP 10/325MG TABLET PO PRN ×2 (07:33→13:06)
[2021-05-30] MEDS: predniSONE 5 MG TABLET PO SCH (07:34)
[2021-05-30] MEDS: METHOCARBAMOL 750 MG TABLET PO PRN (07:34)
--- NOTE | 2021-05-30 08:15 | Internal Med Progress Note ---
SUBJECTIVE Subjective Patient information: Note initiated : 05/30/21 at 8:14 am Service Date, if different from initiated Date: [] Patient: Kathi Arevalo 75 y/o F admitted on 05/27/21 for Femur FX. Chief Complaint: [] Interval history: History of present illness: Ms. Arevalo is a 75 year old female with a history of Lupus on immunosuppressant medications, depression, pernicious anemia, osteoarthritis s/p prior right knee arthroplasty, insomnia who suffered a right distal femur fracture when she fell while gardening. Orthopedic surgery plans to take the patient to the OR. Internal medicine was asked to be involved in the patient's care for medical management. 05/28 Hemoglobin stable after transfusion yesterday. Started oozing a little bit to dressing this morning. No new events or other complaints. 05/29 No overnight event or new complaints. Patient doing well. H&H stable. 05/30 Left lateral chest wall rib pain. Suspect rib injury when she fell. Awaiting placement. Review of Systems: denies headache/fever/chills/nausea/vomiting/chest or abdominal pain/cough/dyspnea/diarrhea. Otherwise see above. Constitutional Vitals: Vital Signs Temp Pulse Resp BP Pulse Ox 98.1 F 96 H 18 129/69 91 05/30/21 04:00 05/30/21 04:00 05/30/21 04:00 05/30/21 04:00 05/30/21 04:00 Period Temp Pulse Resp BP Sys/Wright Pulse Ox Last 24 Hr 98.1 F-99.5 F 96-119 16-22 83-129/43-69 90-93 Intake and Output 05/29/21 05/30/21 05/30/21 21:59 05:59 13:59 Intake Total 400 1000 Output Total 1200 2700 Balance -800 -1700 Weight 66.315 kg Intake & Output: Intake & Output 05/29/21 05/30/21 05/30/21 21:59 05:59 13:59 Intake Total 400 1000 Output Total 1200 2700 Balance -800 -1700 Weight 66.315 kg Intake: Oral 400 1000 Output: Urine Catheter Amount 1200 2700 Other: Meal Dinner Percent of Meal Consumed 100% Feeding Ability Independent Urine Appearance Clear Clear Uretheral (Rousseau) Clear Urine Color Bright Yellow Pale Uretheral (Rousseau) Bright Yellow Urine Odor Normal Normal Exam: General: Alert, Awake, No acute Distress Eyes/N/T: EOMI, Head/Neck: neck supple, CV: RRR, No murmurs, Pulm: Clear b/l, no wheezing/rhonchi/rales. left chest wall/rib tender Abd: soft, nontender, +BS x4 Ext: no clubbing/cyanosis/edema. right leg in external fixator Neuro: Alert, no focal deficits, moves all extremities, Skin: warm/dry OBJ DATA Labs CBC & Chem 7: 05/30/21 05:16 05/28/21 05:17 Labs: Abnormal Lab Results 05/30/21 05/29/21 05/28/21 05:16 05:09 05:17 RBC 2.54 L 2.77 L Hgb 7.6 L 8.1 L Hct 26.1 L 27.8 L MCV 102.8 H 100.4 H MCHC 29.1 L 29.1 L RDW 15.5 H 15.9 H Plt Count 114 L 117 L MPV 10.9 H Neut % (Auto) Lymph % (Auto) [place] % (Auto) 13.1 H Lymph # (Auto) 1.39 L [place] # (Auto) 1.10 H Absolute Neutrophils Anion Gap 2.0 L Uric Acid 2.4 L Calcium 7.8 L AST 41 H Lactate Dehydrogenase 234 H Total Protein 4.3 L Globulin 1.1 L Albumin/Globulin Ratio 2.9 H Vitamin B12 05/28/21 05/27/21 05/27/21 05:17 18:10 11:25 RBC 2.62 L Hgb 8.0 L 7.9 L 5.7 L* Hct 25.3 L MCV MCHC RDW 16.0 H Plt Count 93 L MPV 10.6 H Neut % (Auto) 82.5 H Lymph % (Auto) 8.0 L [place] % (Auto) Lymph # (Auto) 0.85 L [place] # (Auto) 0.99 H Absolute Neutrophils 8.80 H Anion Gap Uric Acid Calcium AST Lactate Dehydrogenase Total Protein Globulin Albumin/Globulin Ratio Vitamin B12 05/27/21 08:17 RBC Hgb Hct MCV MCHC RDW Plt Count MPV Neut % (Auto) Lymph % (Auto) [place] % (Auto) Lymph # (Auto) [place] # (Auto) Absolute Neutrophils Anion Gap Uric Acid Calcium AST Lactate Dehydrogenase Total Protein Globulin Albumin/Globulin Ratio Vitamin B12 1258.0 H Meds: Medications Acetaminophen (Acetaminophen 325 Mg Tablet) 650 mg PO Q6HP PRN; Protocol PRN Reason: Per Pain Protocol/Fever > 101 Hydrocodone Bitart/Acetaminophen (Hydrocodone/Apap 10/325mg Tablet) 1 - 2 tab PO Q4HP PRN; Protocol PRN Reason: Per Pain Protocol Last Admin: 05/30/21 07:33 Dose: 2 tab Documented by: Aspirin (Aspirin 81 Mg Tab.Chew) 81 mg CHEWED BID [facility] Last Admin: 05/29/21 21:36 Dose: 81 mg Documented by: Bupropion HCl (Bupropion 150 Mg Tab.Sr.12h) 150 mg PO BIDP PRN PRN Reason: Depression Calcium Carbonate/Glycine (Calcium Carbonate 500 Mg Tab.Chew) 1,000 mg CHEWED Q4HP PRN PRN Reason: Dyspepsia Diphenhydramine HCl (Diphenhydramine 25 Mg Capsule) 25 mg PO Q6HP PRN PRN Reason: Allergic Symptoms, itching Last Admin: 05/28/21 22:43 Dose: 25 mg Documented by: Docusate Sodium (Docusate Sodium 100 Mg Capsule) 100 mg PO BID [facility] Last Admin: 05/29/21 21:37 Dose: Not Given Documented by: Famotidine (Famotidine 20 Mg Tablet) 20 mg PO BID [facility] Last Admin: 05/29/21 21:37 Dose: Not Given Documented by: Folic Acid (Folic Acid 1 Mg Tablet) 3 mg PO QDAY [facility] Last Admin: 05/29/21 08:35 Dose: 3 mg Documented by: Gabapentin (Gabapentin 400 Mg Capsule) 400 mg PO BID [facility] Last Admin: 05/29/21 21:35 Dose: 400 mg Documented by: Hydromorphone HCl (Hydromorphone 0.5 Mg/0.5 Ml Syringe) 0.5 - 2.5 mg IV Q2HP PRN; Protocol PRN Reason: Per Pain Protocol Hydroxychloroquine Sulfate (Hydroxychloroquine 200 Mg Tablet) 400 mg PO QDAY [facility] Last Admin: 05/29/21 08:35 Dose: 400 mg Documented by: Lidocaine (Lidocaine Patch) 1 patch TOPICAL DAILY@1000 [facility] Methocarbamol (Methocarbamol 750 Mg Tablet) 750 mg PO Q6HP PRN PRN Reason: Muscle Spasm Last Admin: 05/30/21 07:34 Dose: 750 mg Documented by: Ondansetron HCl (Ondansetron 4 Mg Odt Tablet) 4 mg SL Q4HP PRN PRN Reason: Nausea And Vomiting Ondansetron HCl (Ondansetron 4 Mg/2 Ml Vial) 4 mg IV Q4-6HP PRN PRN Reason: Nausea And Vomiting Fluvoxamine 50 Mg (Tablet) 1 dose PO [facility] Last Admin: 05/29/21 21:34 Dose: 1 dose Documented by: Prednisone (Prednisone 5 Mg Tablet) 5 mg PO [facility] Last Admin: 05/30/21 07:34 Dose: 5 mg Documented by: Prochlorperazine (Prochlorperazine 10 Mg/2 Ml Vial) 10 mg IV Q4HP PRN PRN Reason: Nausea And Vomiting Senna (Sennosides 1 Tablet) 2 tab PO [facility] Last Admin: 05/29/21 21:37 Dose: Not Given Documented by: Sodium Chloride (0.9 % Sodium Chloride 10 Ml Syringe) 10 ml IV Q8 [facility] Last Admin: 05/30/21 06:26 Dose: 10 ml Documented by: Trazodone HCl (Trazodone Hcl 50 Mg Tablet) 50 - 100 mg PO HSP PRN PRN Reason: Sleep Last Admin: 05/29/21 21:35 Dose: 50 mg Documented by: A/P Narrative A/P Narrative: A: #Right open distal femur periprosthetic fracture: s/p ORIF and eternal fixator placement (05/27) #Acute blood loss anemia post-op on Chronic anemia d/t lupus: -stable s/p 2prbc (05/27) #Thrombocytopenia, chronic: #Sicca syndrome #Systemic lupus erythematosus #Immunosuppression #Depression #Pernicious anemia #Osteoporosis #Insomnia #Hx of knee arthroplasty #likely VIOLETA Plan: -RLE per Ortho -On Vancomycin IV per pharmacy-ordered by surgery for open Fx -Monitor hemoglobin -Continue home Hydroxychloroquine and Prednisone, hold Mycophenolate and Methotrexate for now. -Continue home Bupropion, Fluvoxamine, Gabapentin, Trazodone prn. -PT consult -CM for SNF -f/u with pulm for sleep study -DVT ppx: ASA bid per ortho Time Spent With Patient Time: Total time spent is greater than 50% in coordination of care (as documented) at patient's floor/unit and/or counseling patient: QUALITY VTE Deep Vein Thrombosis/Pulmonary Embolism Present on Admission: No
[2021-05-30] MEDS: ASPIRIN 81 MG TAB.CHEW CHEWED SCH (08:57)
[2021-05-30] MEDS: FOLIC ACID 1 MG TABLET PO SCH (08:57)
[2021-05-30] MEDS: HYDROXYCHLOROQUINE 200 MG TABLET PO SCH (08:58)
[2021-05-30] MEDS: GABAPENTIN 400 MG CAPSULE PO SCH (08:58)
[2021-05-30] MEDS: FAMOTIDINE 20 MG TABLET PO SCH (08:58)
[2021-05-30] MEDS: DOCUSATE SODIUM 100 MG CAPSULE PO SCH (08:58)
--- NOTE | 2021-05-30 09:47 | XRay Report ---
CLINICAL INFORMATION: Trauma, COMPARISON: None. FINDINGS: Small left pleural effusion noted. No evidence of pneumothorax. Subsegmental atelectasis in the left base. No rib fracture identified. IMPRESSION: No rib fracture identified. Small left pleural effusion and minor left basilar atelectasis Interpreted and Authenticated by: William Barajas 05/30/21
[2021-05-30] MEDS ORDERED: LIDOCAINE PATCH TOPICAL SCH (10:00)
--- NOTE | 2021-06-22 09:40 | Operative Note ---
DATE OF OPERATION: 05/27/2021 PREOPERATIVE DIAGNOSIS: Open distal periprosthetic fracture of the right supracondylar femur. POSTOPERATIVE DIAGNOSIS: Open distal periprosthetic fracture of the right supracondylar femur. OPERATION PROPOSED: 1. Irrigation and debridement of open fracture with curettage of bone. 2. Open reduction and internal fixation of right supracondylar femur fracture. 3. External fixation right supracondylar femur. OPERATION PERFORMED: 1. Irrigation and debridement of open fracture with curettage of bone. 2. Open reduction and internal fixation of right supracondylar femur fracture. 3. External fixation right supracondylar femur. SURGEON: Brien Minor M.D. PRODUCTION EDITOR: Bharat Mckinley PA-C. This providers expertise and technical skill were required throughout the case. The PA assisted with preoperative coordination, intraoperative retraction, wound closure, and dressing and splint application, as well as postoperative documentation and care coordination. INDICATIONS: This is a lady who has very poor bone quality. She fell in her yard, had immediate pain and was unable to bear weight, presented to the Emergency Room, and was diagnosed with a fracture, which is an open fracture. She is now in need of operative debridement and fixation. Her bone quality is such that we did place a spanning external fixator to hold this to length while we instrumented and then elected to leave it in place for initial stability. DESCRIPTION OF PROCEDURE: Informed consent was obtained. The patient was taken to the operating room and provided with appropriate anesthetic and prophylactic antibiotics. She was carefully positioned. Her leg was prepped. I then ellipsed out over the open wound. I enlarged the wound slightly and then exposed the fracture fragments that had protruded through the wound. Extensive irrigation and debridement of the bone fragments were performed. I then reprepped and draped. I enlarged the incision that we did the I and D through. I exposed the fracture site. A Leopold plate was selected. She had enough comminution and just poor bone quality that we placed an external fixator and held this out to length. We obtained best possible reduction of the fracture fragments and then placed a Leopold lateral plate. The wounds had been irrigated extensively. We closed with Stratafix suture and a nylon. The procedure was tolerated well. There were no complications. ESTIMATED BLOOD LOSS: 200 mL. [id number] Job ID: [id number] Doc ID: [id number] Brien Minor MD
== END 2021-05-30 14:30 | DRG 481 ==
LOC: ED 18:45 → SUR 21:31 → MEDSUR 05-27 00:40 → ICU 05-27 12:52 → MEDSUR 05-28 14:27
PROVIDERS: ADMIT Internal Medicine; ATTEND Internal Medicine

== ENCOUNTER 2021-11-25 13:23 | Inpatient (IN) ==
--- NOTE | 2021-11-25 13:37 | Emergency Department Note ---
HPI <Srinivas Peter PA-C - Last Filed: 11/25/21 16:01> General Chief complaint: Fall Stated complaint: rt hip pain Time Seen by Provider: 11/25/21 13:29 Source: patient Mode of arrival: ambulatory Limitations: no limitations History of Present Illness HPI Narrative: Kathi is a 76-year-old female who arrives to the emergency department by EMS after she sustained a ground-level fall without injury to her head or loss of consciousness. Patient does report that she has pain in her right hip and thigh and is concerned that she had a recent femur fracture last summer that was repaired by Dr. Minor. The patient is not on any blood thinning medications. She is not complaining of any loss of sensation or loss of circulation to her right lower extremity but does appear shortened and rotated externally on exam. Patient is not complaining of any incontinence or saddle anesthesia. She is not complaining of any headache, blurry vision, numbness tingling or in her arms or legs, neck pain, or back pain. She has no other complaints today in the ER. No other modifying factors. Related Data Home Medications Medication Instructions Recorded Confirmed folic acid 1 mg tablet 3 mg PO QDAY tab 02/20/20 10/10/21 mycophenolate mofetil 500 mg 1,000 mg PO QDAY tab 02/20/20 10/10/21 tablet (CellCept) mycophenolate mofetil 500 mg tablet 500 mg PO 1900 05/27/21 10/10/21 acetaminophen 650 mg tablet 650 mg PO Q6H PRN 06/22/21 10/10/21 docusate sodium 100 mg tablet 100 mg PO BID 06/22/21 10/10/21 loperamide 1 mg/7.5 mL oral liquid 2 mg PO PRN PRN 06/22/21 10/10/21 loperamide 1 mg/7.5 mL oral liquid 4 mg PO QDAY PRN 06/22/21 10/10/21 methocarbamol 750 mg tablet 750 mg PO QHS PRN 06/22/21 10/10/21 Previous Rx's Medication Instructions Recorded bupropion HCl 150 mg tablet,12 hr 150 mg PO BID PRN #60 each 02/14/21 sustained-release (Wellbutrin SR) diclofenac sodium 1 % topical gel 2 g TOPICAL QID PRN #100 g 04/14/21 aspirin 81 mg chewable tablet 81 mg PO BID #60 tab 05/29/21 tramadol 50 mg tablet 50 mg PO Q6H PRN #45 tab 06/24/21 omeprazole 20 mg tablet,delayed 20 mg PO BID #180 tab 07/13/21 release trazodone 50 mg tablet See Rx Instructions .ROUTE 07/13/21 .COMPLEX #180 tablet hydrocodone 10 mg-acetaminophen 1 tab PO Q8H PRN #90 tab 08/10/21 325 mg tablet methocarbamol 750 mg tablet 750 mg PO QHS #30 tab 08/10/21 ferrous gluconate 225 mg (27 mg 225 mg PO QDAY #30 tab 10/10/21 iron) tablet fluvoxamine 100 mg tablet 100 mg PO QHS #30 tab 10/10/21 gabapentin 400 mg capsule 800 mg PO TID #180 cap 10/10/21 hydroxychloroquine 200 mg tablet 400 mg PO QDAY #90 tab 10/10/21 (Plaquenil) methotrexate sodium 2.5 mg tablet 20 mg PO QWEEK #100 tab 10/10/21 prednisone 5 mg tablet 5 mg PO QDAY #90 tab 10/10/21 Allergies Allergy/AdvReac Type Severity Reaction Status Date / Time acetaminophen [From Percocet] Allergy Severe Unknown Verified 10/10/21 13:28 codeine Allergy Severe Difficulty Verified 10/10/21 13:28 Breathing doxycycline Allergy Severe Difficulty Verified 10/10/21 13:28 Breathing meperidine [From Demerol] Allergy Severe Difficulty Verified 10/10/21 13:28 Breathing morphine Allergy Severe Difficulty Verified 10/10/21 13:28 Swallowing oxycodone [From Percocet] Allergy Severe Difficulty Verified 10/10/21 13:28 Breathing Penicillins Allergy Severe Difficulty Verified 10/10/21 13:28 Breathing Sulfa (Sulfonamide Allergy Severe Difficulty Verified 10/10/21 13:28 Antibiotics) Breathing Review of Systems <Srinivas Peter PA-C - Last Filed: 11/25/21 16:01> ROS ROS Narrative: Narrative: All systems ED: reviewed and negative except as stated. 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) Anemia (Chronic) Degenerative arthritis of thumb (Acute) Lupus (Chronic) Viral syndrome (Acute) Sinusitis (Acute) Cough (Acute) UTI (urinary tract infection) (Acute) Bronchitis (Acute) Hx of bone density study (Chronic 10/23/14) Hx of cervical cancer (Chronic) Osteoarthritis, hand (Chronic) Dorsal (thoracic) vertebral fracture (Chronic) Muscle pain (Chronic) Joint pain (Chronic) Disequilibrium (Chronic) Leg pain, left (Chronic) Allergic rhinitis (Chronic) 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) Fatigue (Chronic) Tendinitis, calcific, shoulder (Chronic) Dysphagia, unspecified (Chronic) GERD (gastroesophageal reflux disease) (Chronic) Impingement syndrome of right shoulder (Chronic) Peripheral neuropathy (Chronic) Malignant neoplasm of cervix uteri (Chronic) Bullous systemic lupus erythematosus (SLE) (Chronic) Mid-cervical disc disorder, unspecified level (Chronic) Displaced fracture of greater tuberosity of left humerus, subsequent encounter for fracture with routine healing (Chronic) Inflammatory polyarthropathy (Chronic) Encounter for therapeutic drug level monitoring (Chronic) History of cataract surgery (Chronic ~10/2015) History of foot surgery (Chronic ~01/2016) Tooth abscess (Chronic) Medicare annual wellness visit, subsequent (Chronic) Plantar fasciitis (Chronic) Hip pain (Chronic) Vitamin D deficiency (Chronic) Ataxia (Chronic) Hemorrhoids (Chronic) Arthritis (Chronic) UTI (urinary tract infection) (Chronic) Vaginal dysplasia (Chronic) Migraine with aura (Chronic) Sexual dysfunction (Chronic) Palpitation (Chronic) Constipation (Chronic) Collapsed vertebra (Chronic) OA (osteoarthritis) of knee (Chronic) Age related osteoporosis (Chronic) Disorder of visual cortex associated with vascular disorder (Chronic) Fibromyalgia (Chronic) MRSA (methicillin resistant Staphylococcus aureus) (Chronic) Displaced fracture (Chronic) Polyarthropathy (Chronic) Anxiety associated with depression (Chronic) Foot drop, left foot (Chronic) DDD (degenerative disc disease), lumbosacral (Chronic) Weight loss (Chronic) PVD (peripheral vascular disease) (Chronic) 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 Displaced fracture of greater tuberosity of left humerus, subsequent encounter for fracture with routine healing Displacement of lumbar intervertebral disc with myelopathy Disseminated lupus erythematosus Dorsal (thoracic) vertebral fracture lower Dysphagia, unspecified Encounter for therapeutic drug level monitoring Fatigue Fibromyalgia Foot drop, left foot GERD (gastroesophageal reflux disease) Hemorrhoids Hip pain Hx of bone density study (10/23/14) Osteoporosis Hx of cervical cancer LGSIL Impingement syndrome of right shoulder Inflammatory polyarthropathy Joint pain Leg pain, left Leukoplakia oral mucosa Lupus Malignant neoplasm of cervix uteri Medicare annual wellness visit, subsequent Mid-cervical disc disorder, unspecified level Migraine with aura MRSA (methicillin resistant Staphylococcus aureus) Muscle pain OA (osteoarthritis) of knee Obsessive compulsive personality disorder Osteoarthritis, hand Palpitation Parkinsonian tremor Peripheral neuropathy Pernicious anemia Plantar fasciitis Polyarthropathy PVD (peripheral vascular disease) Sexual dysfunction Sinusitis Sinusitis Sjogrens syndrome Tendinitis, calcific, shoulder left Tooth abscess UTI (urinary tract infection) Vaginal dysplasia Viral syndrome Vitamin D deficiency Weight loss Surgical History History of cataract surgery (~10/2015) Dr Adame History of foot surgery (~01/2016) History of hysterectomy Left only left ovary Family History Father Cancer Sister Breast cancer Brother , Age 48 Cancer Social History Smoking Status: Former smoker Alcohol Intake Frequency: does not drink Substance Use: does not use Exam <Srinivas Peter PA-C - Last Filed: 11/25/21 16:01> General Limitations: no limitations Head Head: Present atraumatic, normocephalic and normal inspection Eye Eye: Present normal appearance, PERRL and EOMI ENT ENT: Present normal exam, normal oropharynx and mucous membranes moist Neck Neck: Present normal inspection, full ROM and trachea midline Chest Chest: Present normal inspection and symmetric chest wall rise Respiratory Respiratory: Present normal lung sounds bilaterally Cardiovascular Cardiovascular: Present regular rate and normal rhythm Adbominal Abdominal: Present soft Extremities Extremities: Present tenderness and normal capillary refill Expanded Lower Extremity Hip/Pelvis: Present tenderness and external rotation Upper leg: Present tenderness (Right leg.) Knee: Present normal inspection Lower leg: Present normal inspection Ankle: Present normal inspection Foot/toe: Present normal inspection Neurovascular/Tendon: Present normal capillary refill, normal 2-point discrimination and normal fine/light touch Gait: not tested/not observed Back Back: Present normal inspection and full ROM Neurological Neurological: Present alert and oriented X3 Psychiatric Psychiatric: Present normal affect Skin Skin: Present warm (WNL), dry and normal color Course <Srinivas Peter PA-C - Last Filed: 11/25/21 16:01> Course Course Narrative: 1336: Patient has an IV in place. Labs been drawn. Plain films of the right thigh and right femur have been ordered for evaluation of acute fractures. P atient is neurovascularly intact in the right lower extremity with good cap refill of less than 2 seconds and distal pulses measured at +2 over the dorsalis pedis. 1428: Additional x-rays have been ordered in order to capture an AP coned view of the patient's right hip as well as a frog-leg view. The patient has a right femoral neck fracture as well as a fracture of the distal right femur over the diaphysis. This fracture appears to be malunion and after asking the patient if she has had any recent falls she does report that 3 months ago she fell in the bathtub and has had medial right knee pain ever since but plain films were never ordered for evaluation of said fracture. The patient appears to have been ambulating on a fractured right femur ever since this fall. I have requested the pet house sitter for a bed for inpatient stay. I have also spoken with the patient's orthopedic surgeon Dr. Minor who is going to see her on the floor. Presumptively plan is going to be to fix the hip and address the malunion fracture. Dilaudid has been ordered for pain. EKG on my read shows normal sinus rhythm with ventricular rate of 93 bpm, no ST changes, no hyperacute T waves. 1513: Benadryl has been ordered due to patient complaining of pruritus from the Dilaudid. 1556: Patient was discussed with hospitalist Dr. Kerr who is going to see her on the floor. Vital Signs Vital signs: Vital Signs Temperature 98.1 F 11/25/21 13:24 Pulse Rate 102 H 11/25/21 13:24 Respiratory Rate 18 11/25/21 13:24 Blood Pressure 112/71 11/25/21 13:24 Pulse Oximetry (%) 94 11/25/21 13:24 Temperature 98.1 F 11/25/21 13:24 Pulse Rate 99 H 11/25/21 16:16 Respiratory Rate 18 11/25/21 13:24 Blood Pressure 96/73 11/25/21 16:31 Pulse Oximetry (%) 98 11/25/21 16:31 [facility] <Srinivas Peter PA-C - Last Filed: 11/25/21 16:01> MDM Narrative Medical decision making narrative: 76-year-old female with history of ground-level fall presented to the emergency department for radiographs which revealed a right femoral neck fracture as well as a distal right femur fracture with malunion. Femur fracture is apparently due to ground-level fall from 3 months ago which was never addressed with radiographs. Patient received Benadryl, Dilaudid, and Zofran for pain and nausea. Patient was discussed with orthopedic surgeon Dr. Minor who was agreed to see the patient for surgical fixation of the hip and consultation on her right femur fracture. Patient admitted to hospitalist service afterwards. Assessment: Right femur fracture. Right hip fracture. Treatment: Patient was given Dilaudid and Benadryl for pain, Zofran for nausea, orthopedic surgery consult, hospitalist admission. Lab Data Result diagrams: 11/25/21 13:43 11/25/21 13:43 Labs: Lab Results 11/25/21 11/25/21 Range/Units 13:43 13:43 WBC 5.1 (4.5-11.0) K/mcL RBC 3.35 L (3.59-5.38) M/mcL Hgb 10.6 L (11.2-15.7) g/dL Hct 33.8 L (34.1-44.9) % MCV 100.9 H (80.0-100.0) fL MCH 31.6 (26.0-34.0) pg MCHC 31.4 (31.0-36.0) g/dL RDW 14.3 (11.5-14.5) % Plt Count 169 (140-440) K/mcL MPV 10.3 (7.4-10.4) fL Neut % (Auto) 82.9 H (38.0-78.0) % Lymph % (Auto) 10.8 L (15.5-49.0) % [place] % (Auto) 4.9 (1.0-12.0) % Eos % (Auto) 0.8 (0.0-7.0) % Baso % (Auto) 0.6 (0.0-2.0) % Lymph # (Auto) 0.55 L (1.50-4.80) K/mcL [place] # (Auto) 0.25 (0.10-0.90) K/mcL Eos # (Auto) 0.04 (0.00-0.70) K/mcL Baso # (Auto) 0.03 (0.00-0.30) K/mcL Absolute Neutrophils 4.21 (1.80-8.00) K/mcL Sodium 134 (133-145) mmol/L Potassium 4.2 (3.3-5.1) mmol/L Chloride 100 (96-108) mmol/L Carbon Dioxide 28 (22-30) mmol/L Anion Gap 6.0 L (8.0-16.0) BUN 13 (8-23) mg/dL Creatinine 0.9 (0.6-1.1) mg/dL GFR Calculation 63 Glucose 92 (70-105) mg/dL Calcium 8.2 L (8.6-10.4) mg/dL Total Bilirubin 0.6 (0.1-1.0) mg/dL AST 24 (<32) U/L ALT 15 (<40) U/L Alkaline Phosphatase 59 (39-117) U/L Total Protein 5.5 L (5.9-8.4) gm/dL Albumin 3.7 (3.2-5.2) gm/dL Globulin 1.8 L (2.2-3.7) gm/dL Albumin/Globulin Ratio 2.1 (1.0-2.3) ED POC Tests ED POC Tests: VIDA - SARS Antigen Negative Discharge Plan Patient/Caregiver Discharge Instructions Pt seen by [employer] MANAGER/PA only: Yes Clinical Impression: Closed hip fracture Qualifiers: Encounter type: initial encounter Laterality: right Qualified Code(s): S72.001A - Fracture of unspecified part of neck of right femur, initial encounter for closed fracture Closed femur fracture Qualifiers: Encounter type: initial encounter Femur location: distal epiphysis Fracture alignment: displaced Laterality: right Qualified Code(s): S72.441A - Displaced fracture of lower epiphysis (separation) of right femur, initial encounter for closed fracture Instructions: Leg Fracture (ED), Hip Fracture (ED) Patient Disposition: Xfer As Inpt ([facility]) Condition: Good Follow up with: Edgar Ibarra MD [Primary Care Provider] - Prescriptions: No Action bupropion HCl [Wellbutrin SR] 150 mg tablet sustained-release 12 hr 150 mg PO BID PRN (Reason: Depression) Qty: 60 12RF omeprazole 20 mg tablet,delayed release (DR/EC) 20 mg PO BID Qty: 180 0RF trazodone 50 mg tablet See Rx Instructions .ROUTE .COMPLEX Qty: 180 0RF Dose Instruction: TAKE 1-2 TABLETS BY MOUTH EVERY NIGHT AT BEDTIME NEEDED FOR INSOMNIA Rx Instructions: TAKE 1-2 TABLETS BY MOUTH EVERY NIGHT AT BEDTIME NEEDED FOR INSOMNIA mycophenolate mofetil [CellCept] 500 mg tablet 1,000 mg PO QDAY 0RF Rx Instructions: 1500 mg po Qday folic acid 1 mg tablet 3 mg PO QDAY 0RF Rx Instructions: [address] Coelho methocarbamol 750 mg tablet 750 mg PO QHS Qty: 30 3RF hydrocodone-acetaminophen 10-325 mg tablet 1 tab PO Q8H PRN (Reason: pain) Qty: 90 0RF gabapentin 400 mg capsule 800 mg PO TID Qty: 180 6RF fluvoxamine 100 mg tablet 100 mg PO QHS Qty: 30 12RF ferrous gluconate 225 mg (27 mg iron) tablet 225 mg PO QDAY Qty: 30 6RF hydroxychloroquine [Plaquenil] 200 mg tablet 400 mg PO QDAY Qty: 90 4RF Rx Instructions: 2 po Qday methotrexate sodium 2.5 mg tablet 20 mg PO QWEEK Qty: 100 4RF Rx Instructions: 8 tablets qweek on prednisone 5 mg tablet 5 mg PO QDAY Qty: 90 4RF diclofenac sodium 1 % gel 2 g TOPICAL QID PRN (Reason: pain) Qty: 100 6RF Rx Instructions: apply to affected area QID as needed mycophenolate mofetil 500 mg Tablet 500 mg PO 1900 0RF aspirin 81 mg tablet,chewable 81 mg PO BID Qty: 60 0RF acetaminophen 650 mg Tablet 650 mg PO Q6H PRN (Reason: Pain) 0RF methocarbamol 750 mg Tablet 750 mg PO QHS PRN (Reason: Muscle Spasms) 0RF docusate sodium 100 mg Tablet 100 mg PO BID 0RF loperamide 1 mg/7.5 mL Liquid 4 mg PO QDAY PRN (Reason: Diarrhea) 0RF loperamide 1 mg/7.5 mL Liquid 2 mg PO PRN PRN (Reason: Diarrhea) 0RF tramadol 50 mg tablet 50 mg PO Q6H PRN (Reason: pain) Qty: 45 0RF
--- NOTE | 2021-11-25 14:14 | XRay Report ---
CLINICAL INFORMATION: Trauma COMPARISON: 05/26/2021 TECHNIQUE: Portable FINDINGS: The heart size, mediastinum and pulmonary vessels are unremarkable. The lungs are clear. There are no effusions. The bones and soft tissues are within normal limits. IMPRESSION: Normal chest. Interpreted and Authenticated by: William Barajas 11/25/21
--- NOTE | 2021-11-25 14:16 | XRay Report ---
CLINICAL INFORMATION: COMPARISON: None FINDINGS: Lateral plate and screws transfix an oblique fracture of the distal femoral diaphysis. The fracture is more displaced when compared to the prior postoperative film 05/27/2021. No evidence of healing callus. Scattered tiny dense bone spicule seen about the fracture line which could indicate sclerosis. Total knee prosthesis is anatomically aligned. IMPRESSION: Nonunion of a mildly displaced oblique fracture distal femoral diaphysis. Transfixed by lateral plate screws. Interpreted and Authenticated by: William Barajas 11/25/21
[2021-11-25 14:21] LABS: Basophils # (Auto) 0.03 K/mcL (0.00-0.30); Basophils % (Auto) 0.6 % (0.0-2.0); Eosinophils # (Auto) 0.04 K/mcL (0.00-0.70); Eosinophils % (Auto) 0.8 % (0.0-7.0); Hematocrit 33.8 % (34.1-44.9); Hemoglobin 10.6 g/dL (11.2-15.7); Lymphocytes # (Auto) 0.55 K/mcL (1.50-4.80); Lymphocytes % (Auto) 10.8 % (15.5-49.0); Mean Cell Volume 100.9 fL (80.0-100.0); Mean Corpuscular HGB Conc 31.4 g/dL (31.0-36.0); Mean Platelet Volume 10.3 fL (7.4-10.4); Monocytes # (Auto) 0.25 K/mcL (0.10-0.90); Monocytes % (Auto) 4.9 % (1.0-12.0); Neutrophils % (Auto) 82.9 % (38.0-78.0); Platelet Count 169 K/mcL (140-440); RBC 3.35 M/mcL (3.59-5.38); Red Cell Distribution Width 14.3 % (11.5-14.5); WBC 5.1 K/mcL (4.5-11.0)
--- NOTE | 2021-11-25 14:21 | XRay Report ---
CLINICAL INFORMATION: Trauma now with right hip pain COMPARISON: None. FINDINGS: Sacroiliac and hip joints show mild degeneration.. Subcapital fracture right hip has developed. It is suboptimally visualized on this AP pelvis. Soft tissues are unremarkable. IMPRESSION: Subcapital fracture right hip. Suggest patient return for coned AP and frog-leg views for better evaluation. Interpreted and Authenticated by: William Barajas 11/25/21
[2021-11-25 14:40] LABS: ALT/SGPT 15 U/L (<40); AST/SGOT 24 U/L (<32); Albumin 3.7 gm/dL (3.2-5.2); Albumin/Globulin Ratio 2.1 (1.0-2.3); Alkaline Phosphatase 59 U/L (39-117); Bilirubin,Total 0.6 mg/dL (0.1-1.0); Blood Urea Nitrogen 13 mg/dL (8-23); Calcium 8.2 mg/dL (8.6-10.4); Carbon Dioxide 28 mmol/L (22-30); Chloride 100 mmol/L (96-108); Globulin 1.8 gm/dL (2.2-3.7); Glomerular Filtration Rate 63; Glucose 92 mg/dL (70-105)
[2021-11-25] MEDS: HYDROmorphone 1 MG/ML SYRINGE IV PRN ×2 (15:09→17:15)
[2021-11-25] MEDS ORDERED: diphenhydrAMINE 50 MG/ML VIAL IV ONE (15:12)
[2021-11-25] MEDS ORDERED: ONDANSETRON 4 MG/2 ML VIAL IV ONE (15:41)
--- NOTE | 2021-11-25 15:42 | XRay Report ---
CLINICAL INFORMATION: Trauma now with right hip pain COMPARISON: 05/26/2021. FINDINGS: Probable subtle impacted subcapital fracture right hip appreciated. Mild right-sided degeneration noted. Soft tissues are unremarkable. IMPRESSION: Probable subcapital fracture. Note: If there is not good clinical support for this diagnosis, suggest pelvic CT for more specific evaluation Interpreted and Authenticated by: William Barajas 11/25/21
--- NOTE | 2021-11-25 15:51 | History and Physical Report ---
DATE OF ADMISSION: 11/25/2021 CHIEF COMPLAINT: Right femoral neck fracture. HISTORY: The patient and her daughter were out on the town. She sustained a ground-level fall which was non-syncopal. She did not have any head injury but had immediate pain. She was unable to bear weight. She presented to the emergency room here at [facility] and has been diagnosed with a right femoral neck fracture. Patient will be admitted by the hospitalist, but I am called for further evaluation and management of this right hip. PAST MEDICAL HISTORY: Significant for Sjogren's, lupus, peripheral neuropathy, previous UTIs, fibromyalgia. PAST SURGICAL HISTORY: She has had a recent reduction and internal fixation of her femur with grafting for an open distal femur fracture. She has had a right total knee. MEDICATIONS: 1. Folic acid. 2. CellCept. 3. Colace. 4. Loperamide. 5. Robaxin. 6. Methotrexate. 7. Prednisone. 8. Hydroxychloroquine. 9. Hydrocodone. 10. Trazodone. ALLERGIES: 1. CODEINE. 2. DOXYCYCLINE. 3. DEMEROL. 4. MORPHINE. 5. OXYCODONE. 6. PENICILLIN. 7. SULFA. REVIEW OF SYSTEMS: Not contributory. PHYSICAL EXAMINATION: GENERAL: She is awake and alert. She is resting comfortably. She does have intermittent bouts of grabbing pain. HEAD: Normocephalic, atraumatic. EYES: PERRLA. Conjunctiva clear. ENT: Within normal limits. HEART: Regular. LUNGS: Clear. ABDOMEN: Benign. EXTREMITIES: Right lower extremity demonstrates minimal shortening. She certainly does have pain with any range of motion. She seems to be neurovascularly intact. IMAGING: Her radiographs demonstrate an impacted femoral neck fracture. IMPRESSION: Femoral neck fracture on the right. This appears to be impacted. PLAN: We have discussed treatment options to include internal fixation with cannulated screws, but if it does appear to have displaced at all, we would do a hemiarthroplasty. The risks, complications, and limitations of surgical procedure has been discussed. She understands these well and wishes to proceed. GDD:rony Job ID: [id number] Doc ID: [id number] Brien Minor MD
--- NOTE | 2021-11-25 15:55 | Internal Med History&Physical ---
HPI History of Present Illness Patient information: Note initiated : 11/25/21 at 3:53 pm Service Date, if different from initiated Date: [] Patient: Kathi Arevalo a 76 y/o F admitted on for rt hip pain. Chief Complaint: [] History of present illness: Ms. Arevalo is a 76 year old F Presents the ED with right hip pain. Patient fell while getting into her car and complained of right hip pain. She did not hit her head and no loss of consciousness. X-rays revealed right femoral neck fracture as well as distal right femur fracture. Dr. Minor was contacted. Patient did have a right open distal femur periprosthetic fracture in May 2021 resulting in Ex-Fix By Dr. Minor. Review of Systems: Positives as above. Denies headache/fever/chills/nausea/vomiting/chest or abdominal pain/cough/dyspnea/diarrhea. 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) Anemia (Chronic) Degenerative arthritis of thumb (Acute) Lupus (Chronic) Viral syndrome (Acute) Sinusitis (Acute) Cough (Acute) UTI (urinary tract infection) (Acute) Bronchitis (Acute) Hx of bone density study (Chronic 10/23/14) Hx of cervical cancer (Chronic) Osteoarthritis, hand (Chronic) Dorsal (thoracic) vertebral fracture (Chronic) Muscle pain (Chronic) Joint pain (Chronic) Disequilibrium (Chronic) Leg pain, left (Chronic) Allergic rhinitis (Chronic) 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) Fatigue (Chronic) Tendinitis, calcific, shoulder (Chronic) Dysphagia, unspecified (Chronic) GERD (gastroesophageal reflux disease) (Chronic) Impingement syndrome of right shoulder (Chronic) Peripheral neuropathy (Chronic) Malignant neoplasm of cervix uteri (Chronic) Bullous systemic lupus erythematosus (SLE) (Chronic) Mid-cervical disc disorder, unspecified level (Chronic) Displaced fracture of greater tuberosity of left humerus, subsequent encounter for fracture with routine healing (Chronic) Inflammatory polyarthropathy (Chronic) Encounter for therapeutic drug level monitoring (Chronic) History of cataract surgery (Chronic ~10/2015) History of foot surgery (Chronic ~01/2016) Tooth abscess (Chronic) Medicare annual wellness visit, subsequent (Chronic) Plantar fasciitis (Chronic) Hip pain (Chronic) Vitamin D deficiency (Chronic) Ataxia (Chronic) Hemorrhoids (Chronic) Arthritis (Chronic) UTI (urinary tract infection) (Chronic) Vaginal dysplasia (Chronic) Migraine with aura (Chronic) Sexual dysfunction (Chronic) Palpitation (Chronic) Constipation (Chronic) Collapsed vertebra (Chronic) OA (osteoarthritis) of knee (Chronic) Age related osteoporosis (Chronic) Disorder of visual cortex associated with vascular disorder (Chronic) Fibromyalgia (Chronic) MRSA (methicillin resistant Staphylococcus aureus) (Chronic) Displaced fracture (Chronic) Polyarthropathy (Chronic) Anxiety associated with depression (Chronic) Foot drop, left foot (Chronic) DDD (degenerative disc disease), lumbosacral (Chronic) Weight loss (Chronic) PVD (peripheral vascular disease) (Chronic) 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 Displaced fracture of greater tuberosity of left humerus, subsequent encounter for fracture with routine healing Displacement of lumbar intervertebral disc with myelopathy Disseminated lupus erythematosus Dorsal (thoracic) vertebral fracture lower Dysphagia, unspecified Encounter for therapeutic drug level monitoring Fatigue Fibromyalgia Foot drop, left foot GERD (gastroesophageal reflux disease) Hemorrhoids Hip pain Hx of bone density study (10/23/14) Osteoporosis Hx of cervical cancer LGSIL Impingement syndrome of right shoulder Inflammatory polyarthropathy Joint pain Leg pain, left Leukoplakia oral mucosa Lupus Malignant neoplasm of cervix uteri Medicare annual wellness visit, subsequent Mid-cervical disc disorder, unspecified level Migraine with aura MRSA (methicillin resistant Staphylococcus aureus) Muscle pain OA (osteoarthritis) of knee Obsessive compulsive personality disorder Osteoarthritis, hand Palpitation Parkinsonian tremor Peripheral neuropathy Pernicious anemia Plantar fasciitis Polyarthropathy PVD (peripheral vascular disease) Sexual dysfunction Sinusitis Sinusitis Sjogrens syndrome Tendinitis, calcific, shoulder left Tooth abscess UTI (urinary tract infection) Vaginal dysplasia Viral syndrome Vitamin D deficiency Weight loss Surgical History History of cataract surgery (~10/2015) Dr Adame History of foot surgery (~01/2016) History of hysterectomy Left only left ovary Family History Father Cancer Sister Breast cancer Brother , Age 48 Cancer Social History marital status: single occupational status: retired occupation: Housekeeping @[employer] alcohol intake frequency: does not drink substance use type: does not use MEDS/ALLERGIES Home Medications and Allergies Home Medications Medication Instructions Recorded Confirmed Type folic acid 1 mg tablet 3 mg PO QDAY tab 02/20/20 10/10/21 History mycophenolate mofetil 500 mg 1,000 mg PO QDAY tab 02/20/20 10/10/21 History tablet (CellCept) bupropion HCl 150 mg tablet,12 hr 150 mg PO BID PRN #60 each 02/14/21 10/10/21 Rx sustained-release (Wellbutrin SR) diclofenac sodium 1 % topical gel 2 g TOPICAL QID PRN #100 g 04/14/21 10/10/21 Rx mycophenolate mofetil 500 mg tablet 500 mg PO 1900 05/27/21 10/10/21 History aspirin 81 mg chewable tablet 81 mg PO BID #60 tab 05/29/21 10/10/21 Rx acetaminophen 650 mg tablet 650 mg PO Q6H PRN 06/22/21 10/10/21 History docusate sodium 100 mg tablet 100 mg PO BID 06/22/21 10/10/21 History loperamide 1 mg/7.5 mL oral liquid 2 mg PO PRN PRN 06/22/21 10/10/21 History loperamide 1 mg/7.5 mL oral liquid 4 mg PO QDAY PRN 06/22/21 10/10/21 History methocarbamol 750 mg tablet 750 mg PO QHS PRN 06/22/21 10/10/21 History tramadol 50 mg tablet 50 mg PO Q6H PRN #45 tab 06/24/21 10/10/21 Rx omeprazole 20 mg tablet,delayed 20 mg PO BID #180 tab 07/13/21 10/10/21 Rx release trazodone 50 mg tablet See Rx Instructions .ROUTE 07/13/21 10/10/21 Rx .COMPLEX #180 tablet hydrocodone 10 mg-acetaminophen 1 tab PO Q8H PRN #90 tab 08/10/21 10/10/21 Rx 325 mg tablet methocarbamol 750 mg tablet 750 mg PO QHS #30 tab 08/10/21 10/10/21 Rx ferrous gluconate 225 mg (27 mg 225 mg PO QDAY #30 tab 10/10/21 10/10/21 Rx iron) tablet fluvoxamine 100 mg tablet 100 mg PO QHS #30 tab 10/10/21 10/10/21 Rx gabapentin 400 mg capsule 800 mg PO TID #180 cap 10/10/21 10/10/21 Rx hydroxychloroquine 200 mg tablet 400 mg PO QDAY #90 tab 10/10/21 10/10/21 Rx (Plaquenil) methotrexate sodium 2.5 mg tablet 20 mg PO QWEEK #100 tab 10/10/21 10/10/21 Rx prednisone 5 mg tablet 5 mg PO QDAY #90 tab 10/10/21 10/10/21 Rx Allergies Allergy/AdvReac Type Severity Reaction Status Date / Time acetaminophen [From Percocet] Allergy Severe Unknown Verified 10/10/21 13:28 codeine Allergy Severe Difficulty Verified 10/10/21 13:28 Breathing doxycycline Allergy Severe Difficulty Verified 10/10/21 13:28 Breathing meperidine [From Demerol] Allergy Severe Difficulty Verified 10/10/21 13:28 Breathing morphine Allergy Severe Difficulty Verified 10/10/21 13:28 Swallowing oxycodone [From Percocet] Allergy Severe Difficulty Verified 10/10/21 13:28 Breathing Penicillins Allergy Severe Difficulty Verified 10/10/21 13:28 Breathing Sulfa (Sulfonamide Allergy Severe Difficulty Verified 10/10/21 13:28 Antibiotics) Breathing EXAM Constitutional Vitals: Temp Pulse Resp BP Pulse Ox 98.1 F 91 H 18 104/60 99 11/25/21 13:24 11/25/21 15:29 11/25/21 13:24 11/25/21 14:47 11/25/21 15:29 Exam: General: Alert, Awake, No acute Distress Eyes/N/T: EOMI, PERRL Head/Neck: neck supple, normocephalic atraumatic CV: RRR, No murmurs, normal s1/s2 Pulm: Clear b/l, no wheezing/rhonchi/rales Abd: soft, nontender, +BS x4 Ext: no clubbing/cyanosis/edema Neuro: Alert, no focal deficits, moves all extremities, CN 2-12 grossly intact, sensations intact b/l upper/lower Skin: warm/dry DATA Data Completed and Pending Labs: Labs from last 24 hours 11/25/21 11/25/21 13:43 13:43 WBC 5.1 RBC 3.35 L Hgb 10.6 L Hct 33.8 L MCV 100.9 H MCH 31.6 MCHC 31.4 RDW 14.3 Plt Count 169 MPV 10.3 Neut % (Auto) 82.9 H Lymph % (Auto) 10.8 L Cecil % (Auto) 4.9 Eos % (Auto) 0.8 Baso % (Auto) 0.6 Lymph # (Auto) 0.55 L Cecil # (Auto) 0.25 Eos # (Auto) 0.04 Baso # (Auto) 0.03 Absolute Neutrophils 4.21 Sodium 134 Potassium 4.2 Chloride 100 Carbon Dioxide 28 Anion Gap 6.0 L BUN 13 Creatinine 0.9 GFR Calculation 63 Glucose 92 Calcium 8.2 L Total Bilirubin 0.6 AST 24 ALT 15 Alkaline Phosphatase 59 Total Protein 5.5 L Albumin 3.7 Globulin 1.8 L Albumin/Globulin Ratio 2.1 A/P Narrative A/P Narrative: A: *Right Hip Fx: *Chronic Anemia: *Thrombocytopenia, chronic: *Sjogrens & SLE: on Hydroxychloroquine/prednisone/mycophenalate/MTX *Immunosuppression: see above *Pernicious anemia: on B12 injections monthly *Osteoporosis: h/o distal right femur Fx may 2021 *Depression/Anxiety: *Insomnia *GERD: P: -Dr. Minor for Ortho -Pain control -PT/OT -CM for placement -Continue home Hydroxychloroquine / Prednisone -Continue home Bupropion/Fluvoxamine/Gabapentin/Trazodone prn. -Home medication reconciliation -ppx: SCD, post-op per ortho / home ppi Time Spent With Patient Time: Total time spent is greater than 50% in coordination of care (as documented) at patient's floor/unit and/or counseling patient:
--- NOTE | 2021-11-25 17:04 | EKG ---
[facility] Test Date: 2021-11-25 Pat Name: Kathi Arevalo Department: ED Room: Gender: Female Sterile Process Coordinator: kw : 1945 Requested By: Ke Moon Order Number: [id number] Reading MD: New Hickey Measurements Intervals [place] Rate: 93 P: 70 MN: 151 QRS: 78 QRSD: 91 T: 39 QT: 360 QTc: 448 Interpretive Statements Sinus rhythm Electronically Signed On 11-25-2021 17:04:34 PST by New Hickey /store/M0/[id number].pdf
[2021-11-25] MEDS ORDERED: ceFAZolin 2 GM in DEXTROSE 5% IN WATER 50 ML IV SCH ×2 (17:15→19:15)
[2021-11-25] MEDS ORDERED: ceFAZolin 1 GM VIAL ONE (18:02)
[2021-11-25] MEDS ORDERED: PROPOFOL 200 MG/20 ML VIAL IV ONE (18:25)
[2021-11-25] MEDS ORDERED: KETAMINE 50 MG/ML Syringe (ANEST) IV ONE (18:25)
[2021-11-25] MEDS ORDERED: LIDOCAINE HCL/PF 100 MG/5 ML SYRINGE IV ONE (18:25)
[2021-11-25] MEDS ORDERED: ONDANSETRON 4 MG/2 ML VIAL ONE (18:25)
[2021-11-25] MEDS ORDERED: DEXAMETHASONE 10 MG/ML VIAL ONE (18:25)
[2021-11-25] MEDS ORDERED: MAGNESIUM SULFATE 2 GM/50 ML BAG IV ONE (18:25)
[2021-11-25] MEDS ORDERED: diphenhydrAMINE 50 MG/ML VIAL IV PRN ×2 (18:45→20:19)
[2021-11-25] MEDS ORDERED: LACTATED RINGERS 250 ML IV PRN (18:45)
[2021-11-25] MEDS ORDERED: ACETAMINOPHEN 1,000 MG/100 ML BAG IV ONE ×2 (18:45→19:37)
[2021-11-25] MEDS ORDERED: fentaNYL 100 MCG/2 ML VIAL IV PRN (18:45)
[2021-11-25] MEDS ORDERED: PROMETHAZINE 25 MG/ML VIAL IV PRN (18:45)
[2021-11-25] MEDS ORDERED: ONDANSETRON 4 MG/2 ML VIAL IV PRN ×2 (18:45→20:19)
[2021-11-25] MEDS ORDERED: NALOXONE HCL 0.4 MG/ML VIAL IV PRN (18:45)
[2021-11-25] MEDS ORDERED: IPRATROPIUM/ALBUTEROL 3 ML AMPUL.NEB NEB PRN ×2 (18:45→20:19)
[2021-11-25] MEDS ORDERED: LACTATED RINGERS 1,000 ML IV SCH (18:45)
[2021-11-25] MEDS ORDERED: BISACODYL 10 MG SUPP.RECT PR PRN (19:10)
[2021-11-25] MEDS ORDERED: BENZOCAINE/MENTHOL 1 LOZENGE PO PRN (19:10)
[2021-11-25] MEDS ORDERED: FLEETS ADULT ENEMA PR PRN (19:10)
[2021-11-25] MEDS ORDERED: POLYETHYLENE GLYCOL 3350 17 GM PACKET PO PRN ×2 (19:10→20:19)
[2021-11-25] MEDS ORDERED: METHOCARBAMOL 750 MG TABLET PO PRN ×2 (19:10→21:20)
[2021-11-25] MEDS ORDERED: MAGNESIUM HYDROXIDE 30 ML ORAL.SUSP PO PRN (19:10)
--- NOTE | 2021-11-25 19:10 | Brief Operative Note ---
Brief Operative Note Date of procedure: 11/25/21 Pre-op diagnosis: right hip fx impacted Post-op diagnosis: same Procedure: Right hip pinning Grafts/Implants: Yes Anesthesia: GETA Complications: none Surgeon: Brien Minor Oral Therapist: Bharat Mckinley Estimated blood loss (cc): 10 Specimens Removed/Pathology: none sent Condition: stable Disposition: PACU
[2021-11-25] MEDS ORDERED: POTASSIUM CHLORIDE 40 MEQ in DEXTROSE 5% IN WATER 500 ML IV PRN (20:19)
[2021-11-25] MEDS ORDERED: ACETAMINOPHEN 160 MG/5 ML ORAL.SOL PO PRN (20:19)
[2021-11-25] MEDS ORDERED: POTASSIUM CHLORIDE 20 MEQ TABLET PO PRN ×2 (20:19)
[2021-11-25] MEDS ORDERED: HYDROmorphone 0.5 MG/0.5 ML SYRINGE IV PRN (20:19)
[2021-11-25] MEDS ORDERED: SENNOSIDES 1 TABLET PO PRN (20:19)
[2021-11-25] MEDS ORDERED: MAGNESIUM SULFATE 2 GM/50 ML BAG IV PRN (20:19)
[2021-11-25] MEDS ORDERED: DOCUSATE SODIUM 100 MG CAPSULE PO SCH (21:00)
[2021-11-25] MEDS ORDERED: HYDROcodone/APAP 10/325MG TABLET PO PRN (21:20)
[2021-11-25] MEDS: SENNOSIDES 1 TABLET PO SCH (22:23)
[2021-11-25] MEDS: 0.9 % SODIUM CHLORIDE 10 ML SYRINGE IV SCH (22:23)
[2021-11-25] MEDS: DOCUSATE SODIUM 100 MG CAPSULE PO SCH (22:23)
[2021-11-25] MEDS: ASPIRIN 81 MG TAB.CHEW PO SCH (22:23)
[2021-11-26] MEDS: HYDROCODONE/APAP 7.5/325MG TABLET PO PRN ×3 (03:18→16:53)
[2021-11-26] MEDS: ceFAZolin 1 GM VIAL IV SCH ×2 (03:20→10:59)
--- NOTE | 2021-11-26 04:16 | XRay Report ---
CLINICAL INFORMATION: ORIF Right subcapital fracture COMPARISON: None. FINDINGS: Intraoperative film shows reduction of subcapital fracture to anatomic alignment and transfixation by three screws. Right hip joint is normal with alignment. No soft tissue abnormality. Total fluoroscopy time one minute. IMPRESSION: ORIF subcapital fracture-anatomic alignment Interpreted and Authenticated by: William Barajas 11/26/21
[2021-11-26 06:52] LABS: Basophils # (Auto) 0 K/mcL (0.00-0.30); Basophils % (Auto) 0 % (0.0-2.0); Eosinophils # (Auto) 0 K/mcL (0.00-0.70); Eosinophils % (Auto) 0 % (0.0-7.0); Hematocrit 31.4 % (34.1-44.9); Hemoglobin 9.8 g/dL (11.2-15.7); Lymphocytes # (Auto) 0.12 K/mcL (1.50-4.80); Lymphocytes % (Auto) 1.6 % (15.5-49.0); Mean Cell Volume 101.9 fL (80.0-100.0); Mean Corpuscular HGB Conc 31.2 g/dL (31.0-36.0); Mean Platelet Volume 10.3 fL (7.4-10.4); Monocytes # (Auto) 0.15 K/mcL (0.10-0.90); Monocytes % (Auto) 1.9 % (1.0-12.0); Neutrophils % (Auto) 96.5 % (38.0-78.0); Platelet Count 149 K/mcL (140-440); RBC 3.08 M/mcL (3.59-5.38); Red Cell Distribution Width 14.1 % (11.5-14.5); WBC 7.7 K/mcL (4.5-11.0)
[2021-11-26 07:11] LABS: INR 0.9 (0.9-1.1)
[2021-11-26 07:28] LABS: ALT/SGPT 40 U/L (<40); AST/SGOT 54 U/L (<32); Albumin 3.7 gm/dL (3.2-5.2); Albumin/Globulin Ratio 2.6 (1.0-2.3); Alkaline Phosphatase 72 U/L (39-117); Bilirubin,Direct < 0.2 mg/dL (0-0.3); Bilirubin,Total 0.4 mg/dL (0.1-1.0); Blood Urea Nitrogen 14 mg/dL (8-23); Calcium 7.9 mg/dL (8.6-10.4); Carbon Dioxide 27 mmol/L (22-30); Chloride 97 mmol/L (96-108); Globulin 1.4 gm/dL (2.2-3.7); Glomerular Filtration Rate 63; Glucose 136 mg/dL (70-105); Lactate Dehydrogenase 332 U/L (135-225); Phosphorous 3.2 mg/dL (2.5-4.5); Triglycerides 31 mg/dL (<150); Uric Acid 2.5 mg/dL (2.5-8.0)
[2021-11-26] MEDS ORDERED: DICLOFENAC SODIUM 1% TOPICAL PRN (07:40)
[2021-11-26] MEDS: buPROPion 150 MG TAB.SR.12H PO SCH ×3 (08:08→20:55)
--- NOTE | 2021-11-26 08:28 | Internal Med Progress Note ---
SUBJECTIVE Subjective Patient information: Note initiated : 11/26/21 at 8:25 am Service Date, if different from initiated Date: [] Patient: aKthi Arevalo a 76 y/o F admitted on 11/25/21 for rt hip pain. Chief Complaint: [] Interval history: History of present illness: Ms. Arevalo is a 76 year old F Presents the ED with right hip pain. Patient fell while getting into her car and complained of right hip pain. She did not hit her head and no loss of consciousness. X-rays revealed right femoral neck fracture as well as distal right femur fracture. Dr. Minor was contacted. Patient did have a rightopen distal femur periprosthetic fracturein May 2021 resulting in Ex-Fix By Dr. Minor. 11/26 No overnight event or new complaints. Patient did get ORIF yesterday evening. Review of Systems: denies headache/fever/chills/nausea/vomiting/chest or abdominal pain/cough/dyspnea/diarrhea. Otherwise see above. Constitutional Vitals: Vital Signs Temp Pulse Resp BP Pulse Ox 98.7 F 81 18 95/58 92 11/26/21 07:16 11/26/21 07:16 11/26/21 07:16 11/26/21 07:16 11/26/21 07:35 Period Temp Pulse Resp BP Sys/Wright Pulse Ox Last 24 Hr 97.5 F-98.7 F 81-120 1-20 78-141/54-79 77-100 Intake and Output 11/25/21 11/26/21 11/26/21 21:59 05:59 13:59 Intake Total 1350 1340 Output Total 10 450 Balance 1340 890 Weight 52.163 kg Intake & Output: Intake & Output 11/25/21 11/26/21 11/26/21 21:59 05:59 13:59 Intake Total 1350 1340 Output Total 10 450 Balance 1340 890 Weight 52.163 kg Intake: IV 150 Ancef 2 gm In Dextrose 5% in 50 Water 50 ml @ 100 mls/hr IV PREOP MARCELO Rx#:[id number] Oral 1340 IV - Manual Only 1200 Output: Urine Catheter Amount 450 Estimated Blood Loss 10 Other: Meal Dinner Percent of Meal Consumed 100% Urine Appearance Clear Clear Uretheral (Rousseau) Clear Clear Urine Color Pale Dark Yellow Uretheral (Rousseau) Pale Pale Urine Odor Normal Exam: General: Alert, Awake, No acute Distress Eyes/N/T: EOMI, Head/Neck: neck supple, CV: RRR, 2/6 SM, Pulm: Clear b/l, no wheezing/rhonchi/rales Abd: soft, nontender, +BS x4 Ext: no clubbing/cyanosis/edema Neuro: Alert, no focal deficits, moves all extremities, Skin: warm/dry OBJ DATA Labs CBC & Chem 7: 11/26/21 05:13 11/26/21 05:12 Labs: Abnormal Lab Results 11/26/21 11/26/21 11/25/21 05:13 05:12 13:43 RBC 3.08 L Hgb 9.8 L Hct 31.4 L MCV 101.9 H Neut % (Auto) 96.5 H Lymph % (Auto) 1.6 L Lymph # (Auto) 0.12 L Anion Gap 6.0 L Glucose 136 H Calcium 7.9 L 8.2 L GGT 37 H AST 54 H ALT 40 H Lactate Dehydrogenase 332 H Total Protein 5.1 L 5.5 L Globulin 1.4 L 1.8 L Albumin/Globulin Ratio 2.6 H 11/25/21 13:43 RBC 3.35 L Hgb 10.6 L Hct 33.8 L MCV 100.9 H Neut % (Auto) 82.9 H Lymph % (Auto) 10.8 L Lymph # (Auto) 0.55 L Anion Gap Glucose Calcium GGT AST ALT Lactate Dehydrogenase Total Protein Globulin Albumin/Globulin Ratio Meds: Medications Acetaminophen (Acetaminophen 160 Mg/5 Ml Oral.Nicki) 650 mg PO Q6HP PRN; Protocol PRN Reason: Per Pain Protocol Hydrocodone Bitart/Acetaminophen (Hydrocodone/Apap 7.5/325mg Tablet) 0 tab PO Q4HP PRN; Protocol PRN Reason: Per Pain Protocol Last Admin: 11/26/21 03:18 Dose: 1 tab Documented by: Albuterol/Ipratropium (Ipratropium/Albuterol 3 Ml Ampul.Neb) 3 ml NEB Q4HP PRN PRN Reason: Shortness Of Breath Aspirin (Aspirin 81 Mg Tab.Chew) 81 mg PO BID [facility] Last Admin: 11/25/21 22:23 Dose: 81 mg Documented by: Bisacodyl (Bisacodyl 10 Mg Supp.Rect) 10 mg DE Q2-3DAYS PRN PRN Reason: Constipation Bupropion HCl (Bupropion 150 Mg Tab.Sr.12h) 150 mg PO BID [facility] Last Admin: 11/26/21 08:08 Dose: Not Given Documented by: Cefazolin Sodium (Cefazolin 1 Gm Vial) 2 gm IV Q8H [facility] Stop: 11/26/21 10:01 Last Admin: 11/26/21 03:20 Dose: 2 gm Documented by: Diphenhydramine HCl (Diphenhydramine 50 Mg/Ml Vial) 25 mg IV Q6HP PRN PRN Reason: Allergic Symptoms Docusate Sodium (Docusate Sodium 100 Mg Capsule) 100 mg PO BID [facility] Last Admin: 11/25/21 22:23 Dose: Not Given Documented by: Folic Acid (Folic Acid 1 Mg Tablet) 3 mg PO QDAY [facility] Gabapentin (Gabapentin 400 Mg Capsule) 800 mg PO TID [facility] Hydromorphone HCl (Hydromorphone 0.5 Mg/0.5 Ml Syringe) 0 mg IV Q2HP PRN PRN Reason: Pain Last Admin: 11/26/21 00:54 Dose: 0.5 mg Documented by: Hydroxychloroquine Sulfate (Hydroxychloroquine 200 Mg Tablet) 400 mg PO QDAY [facility] Cefazolin Sodium 2 gm/ (Dextrose) 50 mls @ 100 mls/hr IV PREOP [facility]; Protocol Last Infusion: 11/25/21 18:41 Dose: Infused Documented by: Potassium Chloride 40 meq/ (Dextrose) 520 mls @ 130 mls/hr IV UD PRN PRN Reason: Potassium < 3 Magnesium Sulfate (Magnesium Sulfate) 2 gm in 50 mls @ 50 mls/hr IV UD PRN PRN Reason: Magnesium </= 1.6 Magnesium Hydroxide (Magnesium Hydroxide 30 Ml Oral.Susp) 30 ml PO BIDP PRN PRN Reason: Constipation Methocarbamol (Methocarbamol 750 Mg Tablet) 750 mg PO Q6HP PRN PRN Reason: Muscle Spasm Last Admin: 11/25/21 22:23 Dose: 750 mg Documented by: Omeprazole (Omeprazole 20 Mg Capsule) 20 mg PO BIDAC [facility] Ondansetron HCl (Ondansetron 4 Mg/2 Ml Vial) 4 mg IV Q4HP PRN PRN Reason: Nausea And Vomiting Diclofenac Sodium 1 (% Topical Gel) 1 dose TOPICAL QIDP PRN PRN Reason: Pain Fluvoxamine 100 Mg (Tablet) 1 dose PO [facility] Polyethylene Glycol (Polyethylene Glycol 3350 17 Gm Packet) 17 gm PO DAILYP PRN PRN Reason: Constipation Potassium Chloride (Potassium Chloride 20 Meq Tablet) 40 meq PO UD PRN PRN Reason: Potssium is 3-3.5 Potassium Chloride (Potassium Chloride 20 Meq Tablet) 40 meq PO UD PRN PRN Reason: Potassium < 3 Prednisone (Prednisone 5 Mg Tablet) 5 mg PO [facility] Senna (Sennosides 1 Tablet) 2 tab PO [facility] Last Admin: 11/25/21 22:23 Dose: Not Given Documented by: Sodium Biphosphate/Sodium Phosphate (Fleets Adult Enema) 1 dose DE Q3-4DAYS PRN PRN Reason: Constipation Sodium Chloride (0.9 % Sodium Chloride 10 Ml Syringe) 10 ml IV Q8 [facility] Last Admin: 11/25/21 22:23 Dose: 10 ml Documented by: Throat Lozenges (Benzocaine/Menthol 1 Lozenge) 1 lozenge PO PRN PRN PRN Reason: Sore Throat A/P Narrative A/P Narrative: A: *Right Hip Fx: s/p ORIF pinning (11/25) *Chronic Anemia: has required blood transfusions in past after surgery *Thrombocytopenia, chronic: *Sjogrens & SLE: on Hydroxychloroquine/prednisone/mycophenalate/MTX *Immunosuppression: see above *Pernicious anemia: on B12 injections monthly *Osteoporosis: h/o distal right femur Fx may 2021 *Depression/Anxiety: *Insomnia *GERD: P: -Dr. Minor for Ortho -Pain control -PT/OT -CM for placement -Continue home Hydroxychloroquine / Prednisone -Continue home Bupropion/Fluvoxamine/Gabapentin/Trazodone prn. -ppx: SCD, post-op per ortho asa bid/ home ppi Time Spent With Patient Time: Total time spent is greater than 50% in coordination of care (as documented) at patient's floor/unit and/or counseling patient:
[2021-11-26] MEDS: 0.9 % SODIUM CHLORIDE 10 ML SYRINGE IV SCH ×3 (08:42→21:00)
[2021-11-26] MEDS: predniSONE 5 MG TABLET PO SCH (08:44)
[2021-11-26] MEDS: ASPIRIN 81 MG TAB.CHEW PO SCH ×2 (08:44→20:55)
[2021-11-26] MEDS: FOLIC ACID 1 MG TABLET PO SCH (08:45)
[2021-11-26] MEDS: DOCUSATE SODIUM 100 MG CAPSULE PO SCH ×2 (08:45→20:55)
[2021-11-26] MEDS: GABAPENTIN 400 MG CAPSULE PO SCH ×3 (08:46→20:56)
[2021-11-26] MEDS: HYDROXYCHLOROQUINE 200 MG TABLET PO SCH (08:46)
[2021-11-26] MEDS: OMEPRAZOLE 20 MG CAPSULE PO SCH ×2 (08:51→16:53)
[2021-11-26] MEDS ORDERED: buPROPion 150 MG TAB.SR.12H PO SCH (09:00)
--- NOTE | 2021-11-26 10:39 | Orthopedic Progress Note ---
SUBJECTIVE Subjective Patient information: Note initiated : 11/26/21 at 10:37 am Service Date, if different from initiated Date: [] Patient: Kathi Arevalo 76 y/o F admitted on 11/25/21 for rt hip pain. Chief Complaint: [] Principal diagnosis: hip fracture impacted femoral neck Interval history: no periop complications Constitutional Vitals: Vital Signs Temp Pulse Resp BP Pulse Ox 98.7 F 81 18 95/58 92 11/26/21 07:16 11/26/21 07:16 11/26/21 07:16 11/26/21 07:16 11/26/21 07:35 Period Temp Pulse Resp BP Sys/Wright Pulse Ox Last 24 Hr 97.5 F-98.7 F 81-120 1-20 78-141/54-79 77-100 Intake and Output 11/25/21 11/26/21 11/26/21 21:59 05:59 13:59 Intake Total 1350 1340 Output Total 10 450 Balance 1340 890 Weight 115 lb Intake & Output: Intake & Output 11/25/21 11/26/21 11/26/21 21:59 05:59 13:59 Intake Total 1350 1340 Output Total 10 450 Balance 1340 890 Weight 115 lb Intake: IV 150 Ancef 2 gm In Dextrose 5% in 50 Water 50 ml @ 100 mls/hr IV PREOP MARCELO Rx#:[id number] Oral 1340 IV - Manual Only 1200 Output: Urine Catheter Amount 450 Estimated Blood Loss 10 Other: Meal Dinner Percent of Meal Consumed 100% Urine Appearance Clear Clear Uretheral (Streeter) Clear Clear Urine Color Pale Dark Yellow Uretheral (Streeter) Pale Pale Urine Odor Normal OBJ DATA Labs CBC & Chem 7: 11/26/21 05:13 11/26/21 05:12 Labs: Abnormal Lab Results 11/26/21 11/26/21 11/25/21 05:13 05:12 13:43 RBC 3.08 L Hgb 9.8 L Hct 31.4 L MCV 101.9 H Neut % (Auto) 96.5 H Lymph % (Auto) 1.6 L Lymph # (Auto) 0.12 L Anion Gap 6.0 L Glucose 136 H Calcium 7.9 L 8.2 L GGT 37 H AST 54 H ALT 40 H Lactate Dehydrogenase 332 H Total Protein 5.1 L 5.5 L Globulin 1.4 L 1.8 L Albumin/Globulin Ratio 2.6 H 11/25/21 13:43 RBC 3.35 L Hgb 10.6 L Hct 33.8 L MCV 100.9 H Neut % (Auto) 82.9 H Lymph % (Auto) 10.8 L Lymph # (Auto) 0.55 L Anion Gap Glucose Calcium GGT AST ALT Lactate Dehydrogenase Total Protein Globulin Albumin/Globulin Ratio Meds: Medications Acetaminophen (Acetaminophen 160 Mg/5 Ml Oral.Nicki) 650 mg PO Q6HP PRN; Protocol PRN Reason: Per Pain Protocol Hydrocodone Bitart/Acetaminophen (Hydrocodone/Apap 7.5/325mg Tablet) 0 tab PO Q4HP PRN; Protocol PRN Reason: Per Pain Protocol Last Admin: 11/26/21 03:18 Dose: 1 tab Documented by: Albuterol/Ipratropium (Ipratropium/Albuterol 3 Ml Ampul.Neb) 3 ml NEB Q4HP PRN PRN Reason: Shortness Of Breath Aspirin (Aspirin 81 Mg Tab.Chew) 81 mg PO BID [facility] Last Admin: 11/26/21 08:44 Dose: 81 mg Documented by: Bisacodyl (Bisacodyl 10 Mg Supp.Rect) 10 mg MT Q2-3DAYS PRN PRN Reason: Constipation Bupropion HCl (Bupropion 150 Mg Tab.Sr.12h) 150 mg PO BID [facility] Last Admin: 11/26/21 08:48 Dose: 150 mg Documented by: Diphenhydramine HCl (Diphenhydramine 50 Mg/Ml Vial) 25 mg IV Q6HP PRN PRN Reason: Allergic Symptoms Docusate Sodium (Docusate Sodium 100 Mg Capsule) 100 mg PO BID [facility] Last Admin: 11/26/21 08:45 Dose: Not Given Documented by: Folic Acid (Folic Acid 1 Mg Tablet) 3 mg PO QDAY [facility] Last Admin: 11/26/21 08:45 Dose: 3 mg Documented by: Gabapentin (Gabapentin 400 Mg Capsule) 800 mg PO TID [facility] Last Admin: 11/26/21 08:46 Dose: 800 mg Documented by: Hydromorphone HCl (Hydromorphone 0.5 Mg/0.5 Ml Syringe) 0 mg IV Q2HP PRN PRN Reason: Pain Last Admin: 11/26/21 00:54 Dose: 0.5 mg Documented by: Hydroxychloroquine Sulfate (Hydroxychloroquine 200 Mg Tablet) 400 mg PO QDAY [facility] Last Admin: 11/26/21 08:46 Dose: 400 mg Documented by: Potassium Chloride 40 meq/ (Dextrose) 520 mls @ 130 mls/hr IV UD PRN PRN Reason: Potassium < 3 Magnesium Sulfate (Magnesium Sulfate) 2 gm in 50 mls @ 50 mls/hr IV UD PRN PRN Reason: Magnesium </= 1.6 Magnesium Hydroxide (Magnesium Hydroxide 30 Ml Oral.Susp) 30 ml PO BIDP PRN PRN Reason: Constipation Methocarbamol (Methocarbamol 750 Mg Tablet) 750 mg PO Q6HP PRN PRN Reason: Muscle Spasm Last Admin: 11/25/21 22:23 Dose: 750 mg Documented by: Omeprazole (Omeprazole 20 Mg Capsule) 20 mg PO BIDAC [facility] Last Admin: 11/26/21 08:51 Dose: 20 mg Documented by: Ondansetron HCl (Ondansetron 4 Mg/2 Ml Vial) 4 mg IV Q4HP PRN PRN Reason: Nausea And Vomiting Diclofenac Sodium 1 (% Topical Gel) 1 dose TOPICAL QIDP PRN PRN Reason: Pain Fluvoxamine 100 Mg (Tablet) 1 dose PO [facility] Polyethylene Glycol (Polyethylene Glycol 3350 17 Gm Packet) 17 gm PO DAILYP PRN PRN Reason: Constipation Potassium Chloride (Potassium Chloride 20 Meq Tablet) 40 meq PO UD PRN PRN Reason: Potssium is 3-3.5 Potassium Chloride (Potassium Chloride 20 Meq Tablet) 40 meq PO UD PRN PRN Reason: Potassium < 3 [facility] ([facility] 5 Mg [facility]) [facility] Last Admin: 11/26/21 08:44 Dose: 5 mg Documented by: Senna (Sennosides 1 Tablet) 2 tab PO [facility] Last Admin: 11/25/21 22:23 Dose: Not Given Documented by: Sodium Biphosphate/Sodium Phosphate (Fleets Adult Enema) 1 dose MT Q3-4DAYS PRN PRN Reason: Constipation Sodium Chloride (0.9 % Sodium Chloride 10 Ml Syringe) 10 ml IV Q8 [facility] Last Admin: 11/26/21 08:42 Dose: 10 ml Documented by: Throat Lozenges (Benzocaine/Menthol 1 Lozenge) 1 lozenge PO PRN PRN PRN Reason: Sore Throat A/P Narrative A/P Narrative: status post hip pinning mobilize ttwb with pt dc streeter dc planning Time Spent With Patient Time: Total time spent is greater than 50% in coordination of care (as documented) at patient's floor/unit and/or counseling patient:
[2021-11-26] MEDS: SENNOSIDES 1 TABLET PO SCH (20:55)
[2021-11-26] MEDS: traZODone HCL 50 MG TABLET PO PRN (23:01)
[2021-11-27] MEDS: HYDROCODONE/APAP 7.5/325MG TABLET PO PRN ×5 (00:04→19:44)
[2021-11-27] MEDS: 0.9 % SODIUM CHLORIDE 10 ML SYRINGE IV SCH ×3 (04:54→22:40)
[2021-11-27] MEDS: OMEPRAZOLE 20 MG CAPSULE PO SCH ×2 (07:09→16:38)
--- NOTE | 2021-11-27 07:58 | Orthopedic Progress Note ---
SUBJECTIVE Subjective Patient information: Note initiated : 11/27/21 at 7:54 am Service Date, if different from initiated Date: [] Patient: Kathi Arevalo 76 y/o F admitted on 11/25/21 for rt hip pain. Chief Complaint: [S/p right hip pinning] Patient is doing well with no complaints today. She denies any new onset chest pain, SOA, or lower extremity calf tenderness. Principal diagnosis: hip fracture impacted femoral neck Constitutional Vitals: Vital Signs Temp Pulse Resp BP Pulse Ox 98.2 F 76 14 101/60 94 11/27/21 06:52 11/27/21 06:52 11/27/21 06:52 11/27/21 06:52 11/27/21 06:52 Period Temp Pulse Resp BP Sys/Wright Pulse Ox Last 24 Hr 97.6 F-99.5 F 76-98 14-18 90-101/51-62 91-95 Intake and Output 11/26/21 11/27/21 11/27/21 21:59 05:59 13:59 Intake Total 1500 1300 Output Total 1450 1700 750 Balance 50 -400 -750 Weight 133 lb 2 oz Intake & Output: Intake & Output 11/26/21 11/27/21 11/27/21 21:59 05:59 13:59 Intake Total 1500 1300 Output Total 1450 1700 750 Balance 50 -400 -750 Weight 133 lb 2 oz Intake: Oral 1500 1300 Output: Urine Catheter Amount 1200 1700 Void Amount 250 750 Other: Meal Dinner Percent of Meal Consumed 75% Feeding Ability Independent Urine Appearance Clear Clear Clear Uretheral (Rousseau) Clear Urine Color Pale Pale Pale Uretheral (Rousseau) Pale Urine Odor Normal Normal General appearance: no acute distress Extremities Exam Extremities exam: Present calf tenderness (negative bilaterally), Joaquin's sign (negative bilaterally) and neurovascular intact Additional comments: Right hip incision dressing is clean, dry, and intact w/o any active drainage or erythema present. Neurological Exam Neurological exam: Present alert and oriented X3 Psychiatric Psychiatric exam: Present normal affect OBJ DATA Labs CBC & Chem 7: 11/26/21 05:13 11/26/21 05:12 Labs: Abnormal Lab Results 11/26/21 11/26/21 11/25/21 05:13 05:12 13:43 RBC 3.08 L Hgb 9.8 L Hct 31.4 L MCV 101.9 H Neut % (Auto) 96.5 H Lymph % (Auto) 1.6 L Lymph # (Auto) 0.12 L Anion Gap 6.0 L Glucose 136 H Calcium 7.9 L 8.2 L GGT 37 H AST 54 H ALT 40 H Lactate Dehydrogenase 332 H Total Protein 5.1 L 5.5 L Globulin 1.4 L 1.8 L Albumin/Globulin Ratio 2.6 H 11/25/21 13:43 RBC 3.35 L Hgb 10.6 L Hct 33.8 L MCV 100.9 H Neut % (Auto) 82.9 H Lymph % (Auto) 10.8 L Lymph # (Auto) 0.55 L Anion Gap Glucose Calcium GGT AST ALT Lactate Dehydrogenase Total Protein Globulin Albumin/Globulin Ratio Meds: Medications Acetaminophen (Acetaminophen 160 Mg/5 Ml Oral.Nicki) 650 mg PO Q6HP PRN; Protocol PRN Reason: Per Pain Protocol Hydrocodone Bitart/Acetaminophen (Hydrocodone/Apap 7.5/325mg Tablet) 0 tab PO Q4HP PRN; Protocol PRN Reason: Per Pain Protocol Last Admin: 11/27/21 07:09 Dose: 1 tab Documented by: Albuterol/Ipratropium (Ipratropium/Albuterol 3 Ml Ampul.Neb) 3 ml NEB Q4HP PRN PRN Reason: Shortness Of Breath Aspirin (Aspirin 81 Mg Tab.Chew) 81 mg PO BID [facility] Last Admin: 11/26/21 20:55 Dose: 81 mg Documented by: Bisacodyl (Bisacodyl 10 Mg Supp.Rect) 10 mg HI Q2-3DAYS PRN PRN Reason: Constipation Bupropion HCl (Bupropion 150 Mg Tab.Sr.12h) 150 mg PO BID [facility] Last Admin: 11/26/21 20:55 Dose: 150 mg Documented by: Diphenhydramine HCl (Diphenhydramine 50 Mg/Ml Vial) 25 mg IV Q6HP PRN PRN Reason: Allergic Symptoms Last Admin: 11/26/21 14:51 Dose: 25 mg Documented by: Docusate Sodium (Docusate Sodium 100 Mg Capsule) 100 mg PO BID [facility] Last Admin: 11/26/21 20:55 Dose: 100 mg Documented by: Folic Acid (Folic Acid 1 Mg Tablet) 3 mg PO QDAY [facility] Last Admin: 11/26/21 08:45 Dose: 3 mg Documented by: Gabapentin (Gabapentin 400 Mg Capsule) 800 mg PO TID [facility] Last Admin: 11/26/21 20:56 Dose: 800 mg Documented by: Hydromorphone HCl (Hydromorphone 0.5 Mg/0.5 Ml Syringe) 0 mg IV Q2HP PRN PRN Reason: Pain Last Admin: 11/26/21 00:54 Dose: 0.5 mg Documented by: Hydroxychloroquine Sulfate (Hydroxychloroquine 200 Mg Tablet) 400 mg PO QDAY [facility] Last Admin: 11/26/21 08:46 Dose: 400 mg Documented by: Potassium Chloride 40 meq/ (Dextrose) 520 mls @ 130 mls/hr IV UD PRN PRN Reason: Potassium < 3 Magnesium Sulfate (Magnesium Sulfate) 2 gm in 50 mls @ 50 mls/hr IV UD PRN PRN Reason: Magnesium </= 1.6 Magnesium Hydroxide (Magnesium Hydroxide 30 Ml Oral.Susp) 30 ml PO BIDP PRN PRN Reason: Constipation Methocarbamol (Methocarbamol 750 Mg Tablet) 750 mg PO Q6HP PRN PRN Reason: Muscle Spasm Last Admin: 11/25/21 22:23 Dose: 750 mg Documented by: Omeprazole (Omeprazole 20 Mg Capsule) 20 mg PO BIDAC [facility] Last Admin: 11/27/21 07:09 Dose: 20 mg Documented by: Ondansetron HCl (Ondansetron 4 Mg/2 Ml Vial) 4 mg IV Q4HP PRN PRN Reason: Nausea And Vomiting Diclofenac Sodium 1 (% Topical Gel) 1 dose TOPICAL QIDP PRN PRN Reason: Pain Fluvoxamine 100 Mg (Tablet) 1 dose PO [facility] Last Admin: 11/26/21 21:00 Dose: Not Given Documented by: Polyethylene Glycol (Polyethylene Glycol 3350 17 Gm Packet) 17 gm PO DAILYP PRN PRN Reason: Constipation Potassium Chloride (Potassium Chloride 20 Meq Tablet) 40 meq PO UD PRN PRN Reason: Potssium is 3-3.5 Potassium Chloride (Potassium Chloride 20 Meq Tablet) 40 meq PO UD PRN PRN Reason: Potassium < 3 Prednisone (Prednisone 5 Mg Tablet) 5 mg PO QAC [facility] Last Admin: 11/26/21 08:44 Dose: 5 mg Documented by: Senna (Sennosides 1 Tablet) 2 tab PO [facility] Last Admin: 11/26/21 20:55 Dose: 2 tab Documented by: Sodium Biphosphate/Sodium Phosphate (Fleets Adult Enema) 1 dose HI Q3-4DAYS PRN PRN Reason: Constipation Sodium Chloride (0.9 % Sodium Chloride 10 Ml Syringe) 10 ml IV Q8 [facility] Last Admin: 11/27/21 04:54 Dose: 10 ml Documented by: Throat Lozenges (Benzocaine/Menthol 1 Lozenge) 1 lozenge PO PRN PRN PRN Reason: Sore Throat Trazodone HCl (Trazodone Hcl 50 Mg Tablet) 50 mg PO HSP PRN PRN Reason: Insomnia Last Admin: 11/26/21 23:01 Dose: 50 mg Documented by: A/P Assessment and plan (1) Closed hip fracture: Assessment and plan: 25 % WB on RLE. Continue PT/OT. Likely discharge to [facility] in 1-[address] silver dressing prior to discharge. Follow-up with TIFFANY in 2 weeks. Status: Acute Qualifiers: Encounter type: initial encounter Laterality: right Qualified Code(s): S72.001A - Fracture of unspecified part of neck of right femur, initial encounter for closed fracture Time Spent With Patient Time: Total time spent is greater than 50% in coordination of care (as documented) at patient's floor/unit and/or counseling patient:
--- NOTE | 2021-11-27 08:15 | Internal Med Progress Note ---
SUBJECTIVE Subjective Patient information: Note initiated : 11/27/21 at 8:14 am Service Date, if different from initiated Date: [] Patient: Kathi Arevalo a 76 y/o F admitted on 11/25/21 for rt hip pain. Chief Complaint: [] Principal diagnosis: hip fracture impacted femoral neck Interval history: History of present illness: Ms. Arevalo is a 76 year old F Presents the ED with right hip pain. Patient fell while getting into her car and complained of right hip pain. She did not hit her head and no loss of consciousness. X-rays revealed right femoral neck fracture as well as distal right femur fracture. Dr. Minor was contacted. Patient did have a rightopen distal femur periprosthetic fracturein May 2021 resulting in Ex-Fix By Dr. Minor. 11/26 No overnight event or new complaints. Patient did get ORIF yesterday evening. 11/27 Feeling good. No overnight event or new complaints. Review of Systems: denies headache/fever/chills/nausea/vomiting/chest or abdominal pain /cough/dyspnea/diarrhea. Otherwise see above. Constitutional Vitals: Vital Signs Temp Pulse Resp BP Pulse Ox 98.2 F 76 14 101/60 94 11/27/21 06:52 11/27/21 06:52 11/27/21 06:52 11/27/21 06:52 11/27/21 06:52 Period Temp Pulse Resp BP Sys/Wright Pulse Ox Last 24 Hr 97.6 F-99.5 F 76-98 14-18 90-101/51-62 91-95 Intake and Output 11/26/21 11/27/21 11/27/21 21:59 05:59 13:59 Intake Total 1500 1300 Output Total 1450 1700 750 Balance 50 -400 -750 Weight 60.384 kg Intake & Output: Intake & Output 11/26/21 11/27/21 11/27/21 21:59 05:59 13:59 Intake Total 1500 1300 Output Total 1450 1700 750 Balance 50 -400 -750 Weight 60.384 kg Intake: Oral 1500 1300 Output: Urine Catheter Amount 1200 1700 Void Amount 250 750 Other: Meal Dinner Percent of Meal Consumed 75% Feeding Ability Independent Urine Appearance Clear Clear Clear Uretheral (Rousseau) Clear Urine Color Pale Pale Pale Uretheral (Rousseau) Pale Urine Odor Normal Normal Exam: General: Alert, Awake, No acute Distress Eyes/N/T: EOMI, Head/Neck: neck supple, CV: RRR, 2/6 SM, Pulm: Clear b/l, no wheezing/rhonchi/rales Abd: soft, nontender, +BS x4 Ext: no clubbing/cyanosis/edema Neuro: Alert, no focal deficits, moves all extremities, Skin: warm/dry OBJ DATA Labs CBC & Chem 7: 11/26/21 05:13 11/26/21 05:12 Labs: Abnormal Lab Results 11/26/21 11/26/21 11/25/21 05:13 05:12 13:43 RBC 3.08 L Hgb 9.8 L Hct 31.4 L MCV 101.9 H Neut % (Auto) 96.5 H Lymph % (Auto) 1.6 L Lymph # (Auto) 0.12 L Anion Gap 6.0 L Glucose 136 H Calcium 7.9 L 8.2 L GGT 37 H AST 54 H ALT 40 H Lactate Dehydrogenase 332 H Total Protein 5.1 L 5.5 L Globulin 1.4 L 1.8 L Albumin/Globulin Ratio 2.6 H 11/25/21 13:43 RBC 3.35 L Hgb 10.6 L Hct 33.8 L MCV 100.9 H Neut % (Auto) 82.9 H Lymph % (Auto) 10.8 L Lymph # (Auto) 0.55 L Anion Gap Glucose Calcium GGT AST ALT Lactate Dehydrogenase Total Protein Globulin Albumin/Globulin Ratio Meds: Medications Acetaminophen (Acetaminophen 160 Mg/5 Ml Oral.Nicki) 650 mg PO Q6HP PRN; Protocol PRN Reason: Per Pain Protocol Hydrocodone Bitart/Acetaminophen (Hydrocodone/Apap 7.5/325mg Tablet) 0 tab PO Q4HP PRN; Protocol PRN Reason: Per Pain Protocol Last Admin: 11/27/21 07:09 Dose: 1 tab Documented by: Albuterol/Ipratropium (Ipratropium/Albuterol 3 Ml Ampul.Neb) 3 ml NEB Q4HP PRN PRN Reason: Shortness Of Breath Aspirin (Aspirin 81 Mg Tab.Chew) 81 mg PO BID [facility] Last Admin: 11/26/21 20:55 Dose: 81 mg Documented by: Bisacodyl (Bisacodyl 10 Mg Supp.Rect) 10 mg VT Q2-3DAYS PRN PRN Reason: Constipation Bupropion HCl (Bupropion 150 Mg Tab.Sr.12h) 150 mg PO BID [facility] Last Admin: 11/26/21 20:55 Dose: 150 mg Documented by: Diphenhydramine HCl (Diphenhydramine 50 Mg/Ml Vial) 25 mg IV Q6HP PRN PRN Reason: Allergic Symptoms Last Admin: 11/26/21 14:51 Dose: 25 mg Documented by: Docusate Sodium (Docusate Sodium 100 Mg Capsule) 100 mg PO BID [facility] Last Admin: 11/26/21 20:55 Dose: 100 mg Documented by: Folic Acid (Folic Acid 1 Mg Tablet) 3 mg PO QDAY [facility] Last Admin: 11/26/21 08:45 Dose: 3 mg Documented by: Gabapentin (Gabapentin 400 Mg Capsule) 800 mg PO TID [facility] Last Admin: 11/26/21 20:56 Dose: 800 mg Documented by: Hydromorphone HCl (Hydromorphone 0.5 Mg/0.5 Ml Syringe) 0 mg IV Q2HP PRN PRN Reason: Pain Last Admin: 11/26/21 00:54 Dose: 0.5 mg Documented by: Hydroxychloroquine Sulfate (Hydroxychloroquine 200 Mg Tablet) 400 mg PO QDAY [facility] Last Admin: 11/26/21 08:46 Dose: 400 mg Documented by: Potassium Chloride 40 meq/ (Dextrose) 520 mls @ 130 mls/hr IV UD PRN PRN Reason: Potassium < 3 Magnesium Sulfate (Magnesium Sulfate) 2 gm in 50 mls @ 50 mls/hr IV UD PRN PRN Reason: Magnesium </= 1.6 Magnesium Hydroxide (Magnesium Hydroxide 30 Ml Oral.Susp) 30 ml PO BIDP PRN PRN Reason: Constipation Methocarbamol (Methocarbamol 750 Mg Tablet) 750 mg PO Q6HP PRN PRN Reason: Muscle Spasm Last Admin: 11/25/21 22:23 Dose: 750 mg Documented by: Omeprazole (Omeprazole 20 Mg Capsule) 20 mg PO BIDAC [facility] Last Admin: 11/27/21 07:09 Dose: 20 mg Documented by: Ondansetron HCl (Ondansetron 4 Mg/2 Ml Vial) 4 mg IV Q4HP PRN PRN Reason: Nausea And Vomiting Diclofenac Sodium 1 (% Topical Gel) 1 dose TOPICAL QIDP PRN PRN Reason: Pain Fluvoxamine 100 Mg (Tablet) 1 dose PO [facility] Last Admin: 11/26/21 21:00 Dose: Not Given Documented by: Polyethylene Glycol (Polyethylene Glycol 3350 17 Gm Packet) 17 gm PO DAILYP PRN PRN Reason: Constipation Potassium Chloride (Potassium Chloride 20 Meq Tablet) 40 meq PO UD PRN PRN Reason: Potssium is 3-3.5 Potassium Chloride (Potassium Chloride 20 Meq Tablet) 40 meq PO UD PRN PRN Reason: Potassium < 3 Prednisone (Prednisone 5 Mg Tablet) 5 mg PO QAC [facility] Last Admin: 11/26/21 08:44 Dose: 5 mg Documented by: Senna (Sennosides 1 Tablet) 2 tab PO [facility] Last Admin: 11/26/21 20:55 Dose: 2 tab Documented by: Sodium Biphosphate/Sodium Phosphate (Fleets Adult Enema) 1 dose [place] Q3-4DAYS PRN PRN Reason: Constipation Sodium Chloride (0.9 % Sodium Chloride 10 Ml Syringe) 10 ml IV Q8 [facility] Last Admin: 11/27/21 04:54 Dose: 10 ml Documented by: Throat Lozenges (Benzocaine/Menthol 1 Lozenge) 1 lozenge PO PRN PRN PRN Reason: Sore Throat Trazodone HCl (Trazodone Hcl 50 Mg Tablet) 50 mg PO HSP PRN PRN Reason: Insomnia Last Admin: 11/26/21 23:01 Dose: 50 mg Documented by: A/P Narrative A/P Narrative: A: *Right Hip Fx: s/p ORIF pinning (11/25) *Chronic Anemia: has required blood transfusions in past after surgery *Thrombocytopenia, chronic: *Sjogrens & SLE: on Hydroxychloroquine/prednisone/mycophenalate/MTX *Immunosuppression: see above *Pernicious anemia: on B12 injections monthly *Osteoporosis: h/o distal right femur Fx may 2021 *Depression/Anxiety: *Insomnia *GERD: P: -Dr. Minor for Ortho -Pain control -PT/OT -CM for placement -Continue home Hydroxychloroquine / Prednisone -Continue home Bupropion/Fluvoxamine/Gabapentin/Trazodone prn. -ppx: SCD, post-op per ortho asa bid/ home ppi Time Spent With Patient Time: Total time spent is greater than 50% in coordination of care (as documented) at patient's floor/unit and/or counseling patient:
[2021-11-27] MEDS: ASPIRIN 81 MG TAB.CHEW PO SCH ×2 (09:14→20:22)
[2021-11-27] MEDS: predniSONE 5 MG TABLET PO SCH (09:14)
[2021-11-27] MEDS: DOCUSATE SODIUM 100 MG CAPSULE PO SCH ×2 (09:17→20:22)
[2021-11-27] MEDS: FOLIC ACID 1 MG TABLET PO SCH (09:17)
[2021-11-27] MEDS: GABAPENTIN 400 MG CAPSULE PO SCH ×3 (09:18→20:22)
[2021-11-27] MEDS: buPROPion 150 MG TAB.SR.12H PO SCH ×2 (09:18→20:22)
[2021-11-27] MEDS: HYDROXYCHLOROQUINE 200 MG TABLET PO SCH (09:18)
--- NOTE | 2021-11-27 11:21 | Discharge Summary ---
Discharge Provider Provider Patient information: Note initiated : 11/27/21 at 11:20 am Service Date, if different from initiated Date: [] Patient: Kathi Arevalo 76 y/o F admitted on 11/25/21 for rt hip pain. Chief Complaint: [] Date of admission: 11/25/21 20:14 Discharge date: 11/28/21 Primary care physician: Edgar Ibarra MD Consults: 11/25/21 Consult to Physician [CONS] Stat Comment: Consulting Provider: Brien Minor Reason For Exam: Physician to Consult Consult to Physician [CONS] Stat Comment: Consulting Provider: Rom Finn Reason For Exam: Physician to Consult Discharge Meds Discharge Medications Home Medications folic acid 1 mg tablet 3 mg PO QDAY tab 02/20/20 [History Confirmed 11/25/21 Last Taken 05/26/21 08:00] mycophenolate mofetil 500 mg tablet (CellCept) 1,000 mg PO BID tab 02/20/20 [History Confirmed 11/25/21 Last Taken 06/24/21 05:50] diclofenac sodium 1 % topical gel 2 g TOPICAL QID PRN #100 g 04/14/21 [Rx Confirmed 11/25/21 Last Taken 05/25/21 12:00] methocarbamol 750 mg tablet 750 mg PO QHS PRN 06/22/21 [History Confirmed 11/25/21 Last Taken 06/24/21 05:50] omeprazole 20 mg tablet,delayed release 20 mg PO BID #180 tab 07/13/21 [Rx Confirmed 11/25/21 Last Taken Unknown] ferrous gluconate 225 mg (27 mg iron) tablet 225 mg PO QDAY #30 tab 10/10/21 [Rx Confirmed 11/25/21 Last Taken Unknown] fluvoxamine 100 mg tablet 100 mg PO QHS #30 tab 10/10/21 [Rx Confirmed 11/25/21 Last Taken Unknown] hydroxychloroquine 200 mg tablet (Plaquenil) 400 mg PO QDAY #90 tab 10/10/21 [Rx Confirmed 11/25/21 Last Taken Unknown] methotrexate sodium 2.5 mg tablet 20 mg PO QWEEK #100 tab 10/10/21 [Rx Confirmed 11/25/21 Last Taken Unknown] prednisone 5 mg tablet 5 mg PO QDAY #90 tab 10/10/21 [Rx Confirmed 11/25/21 Last Taken Unknown] benzonatate 100 mg capsule 100 mg PO TID PRN 11/25/21 [History Confirmed 11/25/21 Last Taken Unknown] gabapentin 400 mg capsule 2,400 mg PO QDAY 11/25/21 [History Confirmed 11/25/21 Last Taken Unknown] bupropion HCl 150 mg tablet,12 hr sustained-release (Wellbutrin SR) 1 tab PO BID 11/26/21 [History Confirmed 11/26/21 Last Taken Unknown] aspirin 81 mg chewable tablet 81 mg PO BID 30 Days #60 tab 11/28/21 [Rx Last Taken Unknown] hydrocodone 7.5 mg-acetaminophen 325 mg tablet 1 - 2 tab PO Q4HP PRN #50 tab 11/28/21 [Rx Last Taken Unknown] COURSE Hospital Course Hospital course: Chief Complaint: [] Principal diagnosis: hip fracture impacted femoral neck Interval history: History of present illness: Ms. Arevalo is a 76 year old F Presents the ED with right hip pain. Patient fell while getting into her car and complained of right hip pain. She did not hit her head and no loss of consciousness. X-rays revealed right femoral neck fracture as well as distal right femur fracture. Dr. Minor was contacted. Patient did have a rightopen distal femur periprosthetic fracturein May 2021 resulting in Ex-Fix By Dr. Minor. 11/26 No overnight event or new complaints. Patient did get ORIF yesterday evening. 11/27 Feeling good. No overnight event or new complaints. 11/28 Feeling well. Awaiting placement. A: *Right Hip Fx: s/p ORIF pinning (11/25) *Chronic Anemia: has required blood transfusions in past after surgery *Thrombocytopenia, chronic: *Sjogrens & SLE: on Hydroxychloroquine/prednisone/mycophenalate/MTX *Immunosuppression: see above *Pernicious anemia: on B12 injections monthly *Osteoporosis: h/o distal right femur Fx may 2021 *Depression/Anxiety: *Insomnia *GERD: Discharge diagnosis: Right hip fracture chronic anemia thrombocytopenia Sjogren's lupus depressi Secondary discharge diagnosis: Immunosuppression pernicious anemia osteoporosis depression anxiety insomnia GERD Time Spent with Patient Time attestation: Total time spent providing and/or coordinating discharge services: Time spent: Greater than 30 minutes EXAM Constitutional Vitals: Temp Pulse Resp BP Pulse Ox 97.9 F 75 16 99/62 95 11/27/21 11:11 11/27/21 11:11 11/27/21 11:11 11/27/21 11:11 11/27/21 11:11 Discharge Plan Patient/Caregiver Discharge Instructions Activity: increase activity as tolerated Diet: Regular Diet Instructions: Hydrocodone/Acetaminophen (By mouth), Aspirin (By mouth), Hip Fracture (GEN) Prescriptions: New hydrocodone-acetaminophen 7.5-325 mg Tablet 1 - 2 tab PO Q4HP PRN (Reason: Per Pain Protocol) Qty: 50 0RF aspirin 81 mg Tablet,Chewable 81 mg PO BID 30 Days Qty: 60 0RF Continued omeprazole 20 mg tablet,delayed release (DR/EC) 20 mg PO BID Qty: 180 0RF mycophenolate mofetil [CellCept] 500 mg tablet 1,000 mg PO BID 0RF Rx Instructions: 1000 mg po every morning, and 500mg at the end of the day folic acid 1 mg tablet 3 mg PO QDAY 0RF Rx Instructions: [address] Coelho fluvoxamine 100 mg tablet 100 mg PO QHS Qty: 30 12RF ferrous gluconate 225 mg (27 mg iron) tablet 225 mg PO QDAY Qty: 30 6RF hydroxychloroquine [Plaquenil] 200 mg tablet 400 mg PO QDAY Qty: 90 4RF Rx Instructions: 2 po Qday methotrexate sodium 2.5 mg tablet 20 mg PO QWEEK Qty: 100 4RF Rx Instructions: 8 tablets qweek on prednisone 5 mg tablet 5 mg PO QDAY Qty: 90 4RF diclofenac sodium 1 % gel 2 g TOPICAL QID PRN (Reason: pain) Qty: 100 6RF Rx Instructions: apply to affected area QID as needed methocarbamol 750 mg Tablet 750 mg PO QHS PRN (Reason: Muscle Spasms) 0RF benzonatate 100 mg Capsule 100 mg PO TID PRN (Reason: Cough) 0RF gabapentin 400 mg capsule 2,400 mg PO QDAY 0RF bupropion HCl [Wellbutrin SR] 150 mg tablet sustained-release 12 hr 1 tab PO BID 0RF Discontinued hydrocodone-acetaminophen 10-325 mg tablet 1 tab PO PRN PRN (Reason: Pain) 0RF Follow Up Plan Follow up with: Brien Minor MD [Physician] - 12/08/21 2:10 pm (Check-in at 1:50 pm) Patient Disposition: Xfer SNF Prognosis: Fair Rehab Potential: Fair I certify that the patient requires SNF services: Yes Overall status at discharge: patient is progressing back to baseline Discharge Orders: Discharge Order (Routine); Ordered 11/28/21 Ordered By: Rom Finn
[2021-11-27] MEDS: SENNOSIDES 1 TABLET PO SCH (20:22)
[2021-11-27] MEDS: traZODone HCL 50 MG TABLET PO PRN (22:26)
[2021-11-28] MEDS: HYDROCODONE/APAP 7.5/325MG TABLET PO PRN ×3 (01:58→12:13)
[2021-11-28] MEDS: 0.9 % SODIUM CHLORIDE 10 ML SYRINGE IV SCH (04:21)
--- NOTE | 2021-11-28 07:00 | Orthopedic Progress Note ---
SUBJECTIVE Subjective Patient information: Note initiated : 11/28/21 at 6:57 am Service Date, if different from initiated Date: [] Patient: Kathi Arevalo 76 y/o F admitted on 11/25/21 for rt hip pain. Chief Complaint: [S/p right hip pinning] Patient is doing well and has no complaints today. Her pain is well-controlled. She denies any calf tenderness. Principal diagnosis: hip fracture impacted femoral neck Constitutional Vitals: Vital Signs Temp Pulse Resp BP Pulse Ox 98 F 84 14 91/56 91 11/28/21 06:23 11/28/21 06:23 11/28/21 06:23 11/28/21 06:23 11/28/21 06:23 Period Temp Pulse Resp BP Sys/Wright Pulse Ox Last 24 Hr 97.6 F-99.6 F 72-96 14-18 91-103/54-63 91-95 Intake and Output 11/27/21 11/28/21 11/28/21 21:59 05:59 13:59 Intake Total 240 600 Output Total 1375 Balance 240 -775 Weight 133 lb 3 oz Intake & Output: Intake & Output 11/27/21 11/28/21 11/28/21 21:59 05:59 13:59 Intake Total 240 600 Output Total 1375 Balance 240 -775 Weight 133 lb 3 oz Intake: Oral 240 600 Output: Void Amount 1375 Other: Meal Dinner Percent of Meal Consumed 75% Urine Appearance Clear Clear Urine Color Pale Pale Urine Odor Normal Normal # Voids 3 General appearance: cooperative and no acute distress Extremities Exam Extremities exam: Present calf tenderness (negative bilaterally), Joaquin's sign (negative bilaterally), Foot pink and warm and neurovascular intact Additional comments: Right hip dressing is clean, dry, and intact. Neurological Exam Neurological exam: Present alert and oriented X3 Psychiatric Psychiatric exam: Present normal affect and normal mood OBJ DATA Labs CBC & Chem 7: 11/26/21 05:13 11/26/21 05:12 Labs: Abnormal Lab Results 11/26/21 11/26/21 11/25/21 05:13 05:12 13:43 RBC 3.08 L Hgb 9.8 L Hct 31.4 L MCV 101.9 H Neut % (Auto) 96.5 H Lymph % (Auto) 1.6 L Lymph # (Auto) 0.12 L Anion Gap 6.0 L Glucose 136 H Calcium 7.9 L 8.2 L GGT 37 H AST 54 H ALT 40 H Lactate Dehydrogenase 332 H Total Protein 5.1 L 5.5 L Globulin 1.4 L 1.8 L Albumin/Globulin Ratio 2.6 H 11/25/21 13:43 RBC 3.35 L Hgb 10.6 L Hct 33.8 L MCV 100.9 H Neut % (Auto) 82.9 H Lymph % (Auto) 10.8 L Lymph # (Auto) 0.55 L Anion Gap Glucose Calcium GGT AST ALT Lactate Dehydrogenase Total Protein Globulin Albumin/Globulin Ratio Meds: Medications Acetaminophen (Acetaminophen 160 Mg/5 Ml Oral.Nicki) 650 mg PO Q6HP PRN; Protocol PRN Reason: Per Pain Protocol Hydrocodone Bitart/Acetaminophen (Hydrocodone/Apap 7.5/325mg Tablet) 0 tab PO Q4HP PRN; Protocol PRN Reason: Per Pain Protocol Last Admin: 11/28/21 01:58 Dose: 2 tab Documented by: Albuterol/Ipratropium (Ipratropium/Albuterol 3 Ml Ampul.Neb) 3 ml NEB Q4HP PRN PRN Reason: Shortness Of Breath Aspirin (Aspirin 81 Mg Tab.Chew) 81 mg PO BID [facility] Last Admin: 11/27/21 20:22 Dose: 81 mg Documented by: Bisacodyl (Bisacodyl 10 Mg Supp.Rect) 10 mg CA Q2-3DAYS PRN PRN Reason: Constipation Bupropion HCl (Bupropion 150 Mg Tab.Sr.12h) 150 mg PO BID [facility] Last Admin: 11/27/21 20:22 Dose: 150 mg Documented by: Diphenhydramine HCl (Diphenhydramine 50 Mg/Ml Vial) 25 mg IV Q6HP PRN PRN Reason: Allergic Symptoms Last Admin: 11/26/21 14:51 Dose: 25 mg Documented by: Docusate Sodium (Docusate Sodium 100 Mg Capsule) 100 mg PO BID [facility] Last Admin: 11/27/21 20:22 Dose: 100 mg Documented by: Folic Acid (Folic Acid 1 Mg Tablet) 3 mg PO QDAY [facility] Last Admin: 11/27/21 09:17 Dose: 3 mg Documented by: Gabapentin (Gabapentin 400 Mg Capsule) 800 mg PO TID [facility] Last Admin: 11/27/21 20:22 Dose: 800 mg Documented by: Hydromorphone HCl (Hydromorphone 0.5 Mg/0.5 Ml Syringe) 0 mg IV Q2HP PRN PRN Reason: Pain Last Admin: 11/26/21 00:54 Dose: 0.5 mg Documented by: Hydroxychloroquine Sulfate (Hydroxychloroquine 200 Mg Tablet) 400 mg PO QDAY [facility] Last Admin: 11/27/21 09:18 Dose: 400 mg Documented by: Potassium Chloride 40 meq/ (Dextrose) 520 mls @ 130 mls/hr IV UD PRN PRN Reason: Potassium < 3 Magnesium Sulfate (Magnesium Sulfate) 2 gm in 50 mls @ 50 mls/hr IV UD PRN PRN Reason: Magnesium </= 1.6 Magnesium Hydroxide (Magnesium Hydroxide 30 Ml Oral.Susp) 30 ml PO BIDP PRN PRN Reason: Constipation Methocarbamol (Methocarbamol 750 Mg Tablet) 750 mg PO Q6HP PRN PRN Reason: Muscle Spasm Last Admin: 11/25/21 22:23 Dose: 750 mg Documented by: Omeprazole (Omeprazole 20 Mg Capsule) 20 mg PO BIDAC [facility] Last Admin: 11/27/21 16:38 Dose: 20 mg Documented by: Ondansetron HCl (Ondansetron 4 Mg/2 Ml Vial) 4 mg IV Q4HP PRN PRN Reason: Nausea And Vomiting Diclofenac Sodium 1 (% Topical Gel) 1 dose TOPICAL QIDP PRN PRN Reason: Pain Fluvoxamine 100 Mg (Tablet) 1 dose PO [facility] Last Admin: 11/27/21 22:27 Dose: Not Given Documented by: Polyethylene Glycol (Polyethylene Glycol 3350 17 Gm Packet) 17 gm PO DAILYP PRN PRN Reason: Constipation Potassium Chloride (Potassium Chloride 20 Meq Tablet) 40 meq PO UD PRN PRN Reason: Potssium is 3-3.5 Potassium Chloride (Potassium Chloride 20 Meq Tablet) 40 meq PO UD PRN PRN Reason: Potassium < 3 Prednisone (Pred[facility] 5 Mg Tablet) [facility] Last Admin: 11/27/21 09:14 Dose: 5 mg Documented by: Senna (Sennosides 1 Tablet) 2 tab PO [facility] Last Admin: 11/27/21 20:22 Dose: 2 tab Documented by: Sodium Biphosphate/Sodium Phosphate (Fleets Adult Enema) 1 dose CA Q3-4DAYS PRN PRN Reason: Constipation Sodium Chloride (0.9 % Sodium Chloride 10 Ml Syringe) 10 ml IV Q8 [facility] Last Admin: 11/28/21 04:21 Dose: 10 ml Documented by: Throat Lozenges (Benzocaine/Menthol 1 Lozenge) 1 lozenge PO PRN PRN PRN Reason: Sore Throat Trazodone HCl (Trazodone Hcl 50 Mg Tablet) 50 mg PO HSP PRN PRN Reason: Insomnia Last Admin: 11/27/21 22:26 Dose: 50 mg Documented by: A/P Assessment and plan (1) Closed hip fracture: Assessment and plan: Ambulate with PT/OT today. 25% WB on RLE with walker. Place silver dressing prior to discharge. Discharge to [facility] today per hospitalist. F/u with TIFFANY in 2 weeks. Status: Acute Qualifiers: Encounter type: initial encounter Laterality: right Qualified Code(s): S72.001A - Fracture of unspecified part of neck of right femur, initial encounter for closed fracture Time Spent With Patient Time: Total time spent is greater than 50% in coordination of care (as documented) at patient's floor/unit and/or counseling patient:
[2021-11-28] MEDS: OMEPRAZOLE 20 MG CAPSULE PO SCH (07:21)
--- NOTE | 2021-11-28 07:56 | Operative Note ---
DATE OF OPERATION: 11/25/2021 PREOPERATIVE DIAGNOSIS: Impacted right femoral neck fracture. POSTOPERATIVE DIAGNOSIS: Impacted right femoral neck fracture. PROCEDURE PROPOSED: Right hip pinning with 7.2 Synthes cannulated screws. PROCEDURE PERFORMED: Right hip pinning with 7.2 Synthes cannulated screws. SURGEON: Brien Minor M.D. STONECUTTER: Bharat Mckinley PA-C. This providers expertise and technical skill were required throughout the case. The [facility] assisted with preoperative coordination, intraoperative retraction, wound closure, and dressing and splint application, as well as postoperative documentation and care coordination. ESTIMATED BLOOD LOSS: 10 mL. COMPLICATIONS: None. INDICATIONS: This is an elderly lady with an impacted femoral neck fracture in need of operative stabilization. OPERATION IN DETAIL: Informed consent was obtained. The patient was taken to the operating room and provided with appropriate anesthetic and prophylactic antibiotics. The hip was prepped sterilely. A 3.2 mm guidewire was advanced across the fracture, low on the calcar and centered. A screw was applied over this. An additional cannulated screw was placed both cephalad and anterior and cephalad and posterior to this. The position of the screws was verified on multiple views on fluoroscopy. We irrigated thoroughly, closed with 2-0 inverted deep dermal and haylee. The procedure was tolerated well. [id number] Job ID: [id number] Doc ID: [id number] Brien Minor MD
[2021-11-28] MEDS: FOLIC ACID 1 MG TABLET PO SCH (08:26)
[2021-11-28] MEDS: DOCUSATE SODIUM 100 MG CAPSULE PO SCH (08:27)
[2021-11-28] MEDS: HYDROXYCHLOROQUINE 200 MG TABLET PO SCH (08:27)
[2021-11-28] MEDS: ASPIRIN 81 MG TAB.CHEW PO SCH (08:27)
[2021-11-28] MEDS: GABAPENTIN 400 MG CAPSULE PO SCH (08:27)
[2021-11-28] MEDS: buPROPion 150 MG TAB.SR.12H PO SCH (08:27)
[2021-11-28] MEDS: predniSONE 5 MG TABLET PO SCH (08:28)
--- NOTE | 2021-11-28 11:05 | Internal Med Progress Note ---
SUBJECTIVE Subjective Patient information: Note initiated : 11/28/21 at 11:04 am Service Date, if different from initiated Date: [] Patient: Kathi Arevalo a 76 y/o F admitted on 11/25/21 for rt hip pain. Chief Complaint: [] Principal diagnosis: hip fracture impacted femoral neck Interval history: History of present illness: Ms. Arevalo is a 76 year old F Presents the ED with right hip pain. Patient fell while getting into her car and complained of right hip pain. She did not hit her head and no loss of consciousness. X-rays revealed right femoral neck fracture as well as distal right femur fracture. Dr. Minor was contacted. Patient did have a rightopen distal femur periprosthetic fracturein May 2021 resulting in Ex-Fix By Dr. Minor. 11/26 No overnight event or new complaints. Patient did get ORIF yesterday evening. 11/27 Feeling good. No overnight event or new complaints. 11/28 Feeling well. Awaiting placement. Review of Systems: denies headache/fever/chills/nausea/vomiting/chest or abdominal pain/cough/dyspnea/diarrhea. Otherwise see above. Constitutional Vitals: Vital Signs Temp Pulse Resp BP Pulse Ox 98 F 84 14 91/56 91 11/28/21 06:23 11/28/21 06:23 11/28/21 06:23 11/28/21 06:23 11/28/21 06:23 Period Temp Pulse Resp BP Sys/Wright Pulse Ox Last 24 Hr 97.6 F-99.6 F 72-96 14-18 91-103/54-63 91-95 Intake and Output 11/27/21 11/28/21 11/28/21 21:59 05:59 13:59 Intake Total 240 600 Output Total 1375 200 Balance 240 -775 -200 Weight 60.413 kg Intake & Output: Intake & Output 11/27/21 11/28/21 11/28/21 21:59 05:59 13:59 Intake Total 240 600 Output Total 1375 200 Balance 240 -775 -200 Weight 60.413 kg Intake: Oral 240 600 Output: Void Amount 1375 200 Other: Meal Dinner Breakfast Percent of Meal Consumed 75% 100% Feeding Ability Independent Urine Appearance Clear Clear Clear Urine Color Pale Pale Bright Yellow Urine Odor Normal Normal # Voids 3 Exam: General: Alert, Awake, No acute Distress Eyes/N/T: EOMI, Head/Neck: neck supple, CV: RRR, 2/6 SM, Pulm: Clear b/l, no wheezing/rhonchi/rales Abd: soft, nontender, +BS x4 Ext: no clubbing/cyanosis/edema Neuro: Alert, no focal deficits, moves all extremities, Skin: warm/dry OBJ DATA Labs CBC & Chem 7: 11/26/21 05:13 11/26/21 05:12 Labs: Abnormal Lab Results 11/26/21 11/26/21 11/25/21 05:13 05:12 13:43 RBC 3.08 L Hgb 9.8 L Hct 31.4 L MCV 101.9 H Neut % (Auto) 96.5 H Lymph % (Auto) 1.6 L Lymph # (Auto) 0.12 L Anion Gap 6.0 L Glucose 136 H Calcium 7.9 L 8.2 L GGT 37 H AST 54 H ALT 40 H Lactate Dehydrogenase 332 H Total Protein 5.1 L 5.5 L Globulin 1.4 L 1.8 L Albumin/Globulin Ratio 2.6 H 11/25/21 13:43 RBC 3.35 L Hgb 10.6 L Hct 33.8 L MCV 100.9 H Neut % (Auto) 82.9 H Lymph % (Auto) 10.8 L Lymph # (Auto) 0.55 L Anion Gap Glucose Calcium GGT AST ALT Lactate Dehydrogenase Total Protein Globulin Albumin/Globulin Ratio Meds: Medications Acetaminophen (Acetaminophen 160 Mg/5 Ml Oral.Nicki) 650 mg PO Q6HP PRN; Protocol PRN Reason: Per Pain Protocol Hydrocodone Bitart/Acetaminophen (Hydrocodone/Apap 7.5/325mg Tablet) 0 tab PO Q4HP PRN; Protocol PRN Reason: Per Pain Protocol Last Admin: 11/28/21 07:23 Dose: 2 tab Documented by: Albuterol/Ipratropium (Ipratropium/Albuterol 3 Ml Ampul.Neb) 3 ml NEB Q4HP PRN PRN Reason: Shortness Of Breath Aspirin (Aspirin 81 Mg Tab.Chew) 81 mg PO BID [facility] Last Admin: 11/28/21 08:27 Dose: 81 mg Documented by: Bisacodyl (Bisacodyl 10 Mg Supp.Rect) 10 mg OR Q2-3DAYS PRN PRN Reason: Constipation Bupropion HCl (Bupropion 150 Mg Tab.Sr.12h) 150 mg PO BID [facility] Last Admin: 11/28/21 08:27 Dose: 150 mg Documented by: Diphenhydramine HCl (Diphenhydramine 50 Mg/Ml Vial) 25 mg IV Q6HP PRN PRN Reason: Allergic Symptoms Last Admin: 11/26/21 14:51 Dose: 25 mg Documented by: Docusate Sodium (Docusate Sodium 100 Mg Capsule) 100 mg PO BID [facility] Last Admin: 11/28/21 08:27 Dose: 100 mg Documented by: Folic Acid (Folic Acid 1 Mg Tablet) 3 mg PO QDAY [facility] Last Admin: 11/28/21 08:26 Dose: 3 mg Documented by: Gabapentin (Gabapentin 400 Mg Capsule) 800 mg PO TID [facility] Last Admin: 11/28/21 08:27 Dose: 800 mg Documented by: Hydromorphone HCl (Hydromorphone 0.5 Mg/0.5 Ml Syringe) 0 mg IV Q2HP PRN PRN Reason: Pain Last Admin: 11/26/21 00:54 Dose: 0.5 mg Documented by: Hydroxychloroquine Sulfate (Hydroxychloroquine 200 Mg Tablet) 400 mg PO QDAY [facility] Last Admin: 11/28/21 08:27 Dose: 400 mg Documented by: Potassium Chloride 40 meq/ (Dextrose) 520 mls @ 130 mls/hr IV UD PRN PRN Reason: Potassium < 3 Magnesium Sulfate (Magnesium Sulfate) 2 gm in 50 mls @ 50 mls/hr IV UD PRN PRN Reason: Magnesium </= 1.6 Magnesium Hydroxide (Magnesium Hydroxide 30 Ml Oral.Susp) 30 ml PO BIDP PRN PRN Reason: Constipation Methocarbamol (Methocarbamol 750 Mg Tablet) 750 mg PO Q6HP PRN PRN Reason: Muscle Spasm Last Admin: 11/25/21 22:23 Dose: 750 mg Documented by: Omeprazole (Omeprazole 20 Mg Capsule) 20 mg PO BIDAC [facility] Last Admin: 11/28/21 07:21 Dose: 20 mg Documented by: Ondansetron HCl (Ondansetron 4 Mg/2 Ml Vial) 4 mg IV Q4HP PRN PRN Reason: Nausea And Vomiting Diclofenac Sodium 1 (% Topical Gel) 1 dose TOPICAL QIDP PRN PRN Reason: Pain Fluvoxamine 100 Mg (Tablet) 1 dose PO [facility] Last Admin: 11/27/21 22:27 Dose: Not Given Documented by: Polyethylene Glycol (Polyethylene Glycol 3350 17 Gm Packet) 17 gm PO DAILYP PRN PRN Reason: Constipation Potassium Chloride (Potassium Chloride 20 Meq Tablet) 40 meq PO UD PRN PRN Reason: Potssium is 3-3.5 Potassium Chloride (Potassium Chloride 20 Meq Tablet) 40 meq PO UD PRN PRN Reason: Potassium < 3 Prednisone (Prednisone 5 Mg Tablet) [facility] Last Admin: 11/28/21 08:28 Dose: 5 mg Documented by: Senna (Sennosides 1 Tablet) 2 tab PO [facility] Last Admin: 11/27/21 20:22 Dose: 2 tab Documented by: Sodium Biphosphate/Sodium Phosphate (Fleets Adult Enema) 1 dose OR Q3-4DAYS PRN PRN Reason: Constipation Sodium Chloride (0.9 % Sodium Chloride 10 Ml Syringe) 10 ml IV Q8 [facility] Last Admin: 11/28/21 04:21 Dose: 10 ml Documented by: Throat Lozenges (Benzocaine/Menthol 1 Lozenge) 1 lozenge PO PRN PRN PRN Reason: Sore Throat Trazodone HCl (Trazodone Hcl 50 Mg Tablet) 50 mg PO HSP PRN PRN Reason: Insomnia Last Admin: 11/27/21 22:26 Dose: 50 mg Documented by: A/P Narrative A/P Narrative: A: *Right Hip Fx: s/p ORIF pinning (11/25) *Chronic Anemia: has required blood transfusions in past after surgery *Thrombocytopenia, chronic: *Sjogrens & SLE: on Hydroxychloroquine/prednisone/mycophenalate/MTX *Immunosuppression: see above *Pernicious anemia: on B12 injections monthly *Osteoporosis: h/o distal right femur Fx may 2021 *Depression/Anxiety: *Insomnia *GERD: P: -Dr. Minor for Ortho -Pain control -PT/OT -CM for placement, awaiting placement -Continue home Hydroxychloroquine / Prednisone -Continue home Bupropion/Fluvoxamine/Gabapentin/Trazodone prn. -ppx: SCD, post-op per ortho asa bid/ home ppi Time Spent With Patient Time: Total time spent is greater than 50% in coordination of care (as documented) at patient's floor/unit and/or counseling patient:
== END 2021-11-28 14:00 | DRG 481 ==
LOC: ED 13:23 → SUR 17:58 → MEDSUR 20:14
PROVIDERS: ADMIT Internal Medicine; ATTEND Internal Medicine